=== PATIENT | male | born 1955 ===

== ENCOUNTER 2020-07-29 19:58 | Observation (INO) | payer OTHER, SELFPAY ==
--- NOTE | 2020-07-29 21:29 | DI.MRI.S_ITS ---
PROCEDURE: MR STROKE Pre- and post-contrast brain MRI, non-contrast brain MR angiogram, pre- and postcontrast neck MR angiogram INDICATIONS: CVA TECHNIQUE: Brain: Noncontrast axial T1 spin echo, axial T2 fast spin echo, sagittal and axial FLAIR, coronal T2 fast spin echo, axial gradient echo, axial diffusion and ADC through the brain. After the administration of contrast, axial 3D VIBE of the cranial vasculature and brain. Brain MRA: Non-contrast 3-D time of flight MR angiogram, with multiple rmgsqsh-wdmvlnkop-sqpirremyh (MIP) reformats performed. Neck MRA: Axial and sagittal TruFISP through the neck. Coronal dynamic MR angiogram during administration of contrast in the arterial and venous phases, with 3-dimenstional atxmylo-rwxjukpkk-zrsbvdzzmx (MIP) reformats constructed from subtraction images. COMPARISON: None. FINDINGS: Image quality: Excellent. BRAIN: CSF spaces: Ventricles are normal in size and shape. Basal cisterns are patent. No extra-axial fluid collections. Brain: No intracranial bleeds or mass effects. [place]-white matter interface is normal. Diffusion weighted images show no acute ischemic insults. There is mild diffuse right Brainstem appears normal. Normal intravascular flow voids are present. No abnormal intracranial enhancement. Skull and face: Calvarial marrow signal is normal. Orbits appear normal. Sinuses: Mastoids are clear. Small retention cyst within the left maxillary and ethmoid sinuses. Mild bilateral maxillary sinus mucosal thickening. Mild bilateral ethmoid sinus mucosal thickening. BRAIN MR ANGIOGRAM: Anterior circulation: Multifocal moderate to high-grade stenosis within the left cavernous and pre cavernous internal carotid artery. Mild multifocal stenosis within the right internal carotid artery. The flow within the paired anterior cerebral arteries is normal and symmetric. The flow within the middle cerebral arteries is normal and symmetric. The anterior communicating artery is seen. No stenoses, occlusions, or aneurysms. Posterior circulation: The visualized portions of the vertebral arteries demonstrate normal caliber, and join to form a normal appearing basilar artery. The flow within the posterior cerebral arteries is normal and symmetric. No stenoses, occlusions, or aneurysms. NECK MR ANGIOGRAM: Carotids: Great vessels demonstrate a conventional anatomy as they arise from the aortic arch. The origins of the common carotid arteries appear patent. The calibers and courses of both common carotid arteries are normal. The bifurcation regions appear normal bilaterally. There is a roughly 40% stenosis of the right internal carotid artery, roughly 17 mm distal to its origin. Left internal carotid artery demonstrates a roughly 50% stenosis, roughly 15 mental mm distal to its origin. Mild multifocal stenosis within the right cavernous and pre cavernous internal carotid artery. Multifocal moderate high-grade stenosis within the left precavernous and cavernous internal carotid artery. Posterior circulation: The origins of the vertebral arteries appear patent. More superior portions of both vertebral arteries demonstrate normal course and caliber, and join to form a normal appearing basilar artery. Miscellaneous: Mild right subclavian artery origin stenosis. Moderate to high-grade left subclavian artery stenosis just distal to the left vertebral artery origin. Pre-contrast images through the neck show no soft tissue abnormalities. IMPRESSION: BRAIN MRI: 1. No acute process. No recent infarct. 2. Mild volume loss and small vessel ischemic disease. 3. Sinus disease. BRAIN MR ANGIOGRAM: 1. Left greater than right internal carotid artery stenoses as described above. 2. Otherwise negative cerebral MR angiography. NECK MR ANGIOGRAM: 1. 40% right and 50% left internal carotid artery stenoses. 2. Patent bilateral vertebral arteries. 3. Left greater than right subclavian artery stenoses. Dictated by: Gualberto Tristan M.D. on 07/30/2020 at 9:27 Approved by: Gualberto Tristan M.D. on 07/30/2020 at 9:33
[2020-07-29 21:55] VITALS: BP 152/112; PULSE 67; RESP 16; TEMP 35.8; O2SAT 98
[2020-07-29 22:38] VITALS: BMI 21.4
--- NOTE | 2020-07-29 23:41 | PC.NURSE ---
Patient admitted as transfer from [facility]. Able to ambulate to bed. Provided own health history and admission information. Takes no home meds. Has no complaints of pain. States he was arguing with his when his left side became extremely weak and he was unable to move. He says this lasted about 15mins and then subsided. Currently shows no weakness or other neuro deficits. Patient does possibly have a lisp, or speech impediment or possibly slightly slurred speech. Unknown what speech is like at baseline, patient says he feels like he is talking normally. Patient is a current pack a day smoker and drinks 2 drinks per day, last drink was this afternoon. CIWA 0. His wallet is in his pants pocket in a patient bag in the closet, patient does not wish to put it in the safe. No home meds. Patient is able to make needs know, call light at bedside, bed alarm is on.
[2020-07-30] VITALS (9 sets, daily range): BP systolic 114–183; BP diastolic 66–115; PULSE 56–86; RESP 15–18; TEMP 36.1–37; O2SAT 96–99
--- NOTE | 2020-07-30 03:07 | P.HP_ITS ---
History of Present Illness History of Present Illness Date Patient Seen: 07/29/20 Time Patient Seen: 21:28 Chief complaint: CVA Narrative: Patient is a 64-year-old male Himanshu Carreon who presented to the [facility] Emergency Room weakness to the left arm hand and left leg. Patient presented to the ER with an ethyl alcohol of 153, left arm weakness starting at approximately 4:50 p.m. history was difficult to obtain due to intoxication the patient reported that he had left arm weakness on off for a month, but then noticed it suddenly today when he could not hold anything in his left hand. Patient has a history of remote heart attack, medical noncompliance for hypertension and hyperlipidemia with alcohol and tobacco abuse. Patient reports that he was attempting to open up a can of soup at home when he suddenly dropped a can hogshead opener and was unable to hold it, it then fell to the floor and he was unable to bend down and pick it up with his hand, he then went and sat on the couch waiting for his to come home when he began to feel numbness in his left arm and his foot. When his returned home she transported him to the emergency room by the time he arrived in the emergency room he states that his symptoms were resolved. This evening patient denies any symptoms, or a history prior to today. Patient denies numbness tingling, weakness, headache, changes in vision, balance or coordination, difficulties with speech, sw allowing, chest pain, or shortness of breath. Patient had original NIHSS score of 4, then re-scored NIHSS score of 1 as it was believed that his intoxication was responsible for 3 of the 4 points, patient only had elevations in AST 189/ALT 106, INR 1.1. ER provider was informed by the radiologist verbally that the CT and CT a showed no acute hemorrhage, at which point the ED physician consulted with Dr. Nick (tele stroke neurologist) at which point tPA was not recommended but rather an MRI/observation/ASA. Because [facility]'s MRI is expected to be down for possibly 5 days, patient was accepted onto the hospital service at [facility]. Patient History Medical History (Updated 07/30/20 @ 03:11 by SHUKRI Ortega) Alcohol abuse Bipolar 1 disorder Borderline hyperlipidemia Depression Hypertension, essential Tobacco abuse Surgical History (Updated 07/30/20 @ 03:11 by SHUKRI Ortega) History of mandibular surgery History of tonsillectomy and adenoidectomy Family & Social History Family History (Updated 07/30/20 @ 03:13 by SHUKRI Ortega) Father Caribou's disease Grandfather Caribou's disease Brother Johnie's disease Social History: household members spouse Prior Living Arrangements House Safety & Behavioral: Feels Safe in Current Yes Environment Been Physically Hurt or No Threatened By a Person Suicidal Ideation Description None Suicide Plan Description No Plan Tobacco & Substance use: Smoking Status Current every day smoker x 15 yrs Smoking packs per day 1 alcohol intake current alcohol intake frequency drinks approx. 350cc of Vodka/hard alcohol daily Substance Use Type does not use Meds Home Medications and Allergies Home Medications Medication Instructions Recorded Confirmed Type No Known Home Medications 07/29/20 07/29/20 History Allergies Allergy/AdvReac Type Severity Reaction Status Date / Time ALEX INHIBITORS Allergy Severe ANAPHYLACTI Uncoded 11/18/17 12:01 C Review of Systems Review of Systems ROS: Yes All systems reviewed with the patient and are negative except as otherwise documented Constitutional Constitutional: Reports system reviewed and no additional complaints, except as documented Eyes Eyes: Reports system reviewed and no additional complaints, except as documented Comments: wears glasses ENT Ears, Nose, Mouth, and Throat: Yes system reviewed and no additional complaints, except as documented Cardiovascular Cardiovascular: Reports system reviewed and no additional complaints, except as documented Respiratory Respiratory: Reports system reviewed and no additional complaints, except as documented Gastrointestinal Gastrointestinal: Reports system reviewed and no additional complaints, except as documented Genitourinary Genitourinary: Reports system reviewed and no additional complaints, except as documented Musculoskeletal Musculoskeletal: Reports system reviewed and no additional complaints, except as documented Integumentary/Breasts Skin/Breast: Reports system reviewed and no additional complaints, except as documented Neurologic Neurologic: Reports lack of coordination Psychiatric Psychiatric: Reports system reviewed and no additional complaints, except as documented Endocrine Endocrine: Reports system reviewed and no additional complaints, except as documented Hematologic/Lymphatic Hematologic/Lymphatic: Reports system reviewed and no additional complaints, except as documented Allergic/Immunologic Allergic/Immunologic: Reports system reviewed and no additional complaints, except as documented Exam Vital Signs (past 8 hours): - 07/29/20 21:55 07/30/20 00:00 Temperature 96.5 F L 98.6 F Pulse Rate 67 86 Respiratory Rate 16 15 Blood Pressure 152/112 H 132/92 H Pulse Oximetry 98 96 Oxygen Delivery Method Room Air Oxygen Flow Rate 0 Narrative Exam Narrative: General: Patient is a well-developed, well-nourished, male, in no distress at this time. HEENT: Normocephalic, atraumatic, extraocular muscles intact, oral pharynx is clear and mucous membranes are moist. Patient is missing most of his teeth. Neck is supple and symmetric, trachea is midline, no adenopathy, no thyroid enlargement, nontender, no masses palpated. Negative for JVD Chest: Normal AP diameter and contour without kyphoscoliosis, no nasal flaring, retractions, or tachypneic labored Lungs: Auscultation of all lung gant are clear without adventitious sounds, wheezes, rhonchi, or rales. Cardio: S1 & S2 with regular rate and rhythm without murmur, rubs, or gallops, no carotid bruit, no cardiac pulsations present. Abdomen: Distended, firm, nontender, negative for organomegaly, or masses. Bowel sounds are present in all 4 quadrants without guarding or rebound, no CVA tenderness. Musculoskeletal: Muscle strength 4/5 left programmable logic controller assembler, all extremeties are equal strength , no deformity, Taras crepitus, effusions, cyanosis, clubbing or edema present. Full range of motion intact radial and pedal pulses are normal. Skin: Warm dry and intact without rashes, ulcerations or petechiae. Neuro: Alert and orientated x3, sensation to touch mild asymmetry in left hand sensation versus right, diminished but not absent, no gross deficits noted of cranial nerves. Psych: Patient has a well-kept appearance, appropriate affect, mental status attitude thought context and judgment are appropriate for age. Assessment & Plan Assessment & Plan narrative: This patient requires acute care inpatient hospital management for further evaluation of left-sided weakness for possible cerebrovascular accident. After being unable to obtain appropriate imaging of MRI at [facility] patient was transferred to [facility]. The patient is at much higher risk for medical and surgical complications because of of his medical noncompliance for hypertension and hyperlipidemia as well as his daily abuse alcohol and tobacco. These factors increase the difficulty and complexity of medical and surgical interventions and increases the chances of poor outcomes such as morbidity and mortality . 1. Left-sided weakness, acute, present on admission possible CVA/TIA, portal hypertension, cirrhosis, hepatic hypertension -[facility] CT of brain: does not show intracranial bleed or large territorial infarction, CTA head and neck: Vascular imaging does not show proximal large vessel occlusion. Telemedicine neurologist Dr. Abby Best determined patient not a candidate for tPA treatment or thrombectomy. Recommended patient be transferred to a hospital for observation and MRI imaging. -NIHSS score 1, score on admit 3, EKG: Normal sinus rhythm, normal MD, normal QRS no specific changes for ischemia. -patient stated that he was diagnosed with hypertension and hyperlipidemia over 10 years ago, and has not received medical care taken any medications. -patient to be monitored on tele medicine, vital signs q.4 hours, intake and output monitored Q shift, weight measure daily, neuro checks per protocol, assess for delirium and hallucinations, CIWA scale protocol, NIH Q shift. diet: Heart healthy, bilateral blood pressures taken for comparison -IV fluid, O2 nasal cannula/room air/Pap-O2 saturation -medications and IV fluids provided in the emergency room & imaging -labs ordered: CBC, A1c, Mag, PT INR, TSH, troponin, BNP, hepatic panel, ER stay/CRP, GGT, lipid panel -medications: ASA 81 mg, atorvastatin 80 mg, enoxaparin 40 mg, ibuprofen. Diagnostic ordered: MR, an abdominal ultrasound -consults ordered physical therapy, occupational therapy, speech therapy, dietary. -prevention vaccine: Evaluate to see if patient can receive pneumonia and flu vaccine 2. Alcohol intoxication, acute on chronic, present on admission -ethyl alcohol 153, patient education regarding cessation of alcohol abuse. -CIWA scale protocol, neuro checks according protocol, assessing for delirium hallucinations, and seizure 3. Tobacco abuse, chronic, smoking, present on admission Possible asthma/COPD -patient education provided on smoking cessation Code status: Full code Surrogate/plan of care: Darline Hoyos No POLsT COVID PCR: Negative VTE prophylaxis: Enoxaparin 40mg Scores NIHSS Level of Conciousness: Alert, keenly responsive Ask month/age: Answers both questions correctly. Open/close eyes, close hand: Performs one task correctly Best gaze horizontal: Normal Visual gant: No visual loss Facial palsy: Normal symetrical movement Left arm drift: No drift for full 10 sec Right arm drift: No drift for full 10 sec Left leg drift: No drift for full 5 sec Right leg drift: No drift for full 5 sec Limb ataxia: Present in one limb Sensory on face/arms/legs: Normal, no sensory loss Best language: No aphasia, normal Dysarthria: Mild to mod,some slurring Extinction or inattention: No abnormality Total NIH Stroke scale score: 3
--- NOTE | 2020-07-30 05:15 | PC.NURSE ---
2310 Received safe patient hand-off. The patient is resting in bed with HOB elevated to 30-40 degrees. He is alert and oriented x4, appears to be a bit withdrawn. CIWA scores have been 0. NIH scores have been 1 for slurred speech, but this may be baseline for patient as it appears he may have a speech impediment. Denies pain, GI upset and tremors. No diaphoresis or tremors seen on assessment. No s/sx of distress.
[2020-07-30 05:33] LABS: Add Manual Diff / Slide Review NO; Basophils Absolute Auto 100 /uL (0-100); Basophils Percent Auto 0.9 % (0-2); Eosinophils Absolute Auto 200 /uL (0-450); Eosinophils Percent Auto 2.8 % (2-4); Hematocrit 46.4 % (41-53); Hemoglobin 15.9 g/dL (13.5-17.5); Lymphocytes Absolute Auto 2000 /uL (1100-4500); Lymphocytes Percent Auto 31.7 % (25-40); Mean Corpuscular HGB Conc 34.2 % (30-36); Mean Corpuscular Hemoglobin 30.2 PG (26-34); Mean Corpuscular Volume 88.3 fL (80-100); Monocytes Absolute Auto 900 /uL (0-900); Monocytes Percent Auto 14.3 % (3-14); Neutrophils Absolute Auto 3100 /uL (1500-7000); Neutrophils Percent Auto 50.3 % (50-75); Platelet Count 158 X10^3/uL (150-400); Red Blood Cell Count 5.26 X10^6/uL (4.5-5.9); Red Cell Distribution Width 15.6 % (11.6-14.8); White Blood Cell Count 6.2 X10^3/uL (4.5-11.0)
[2020-07-30 05:50] LABS: Prothrombin Time 11.2 SECONDS (10.1-12.7)
[2020-07-30 06:09] LABS: Cholesterol 219 mg/dL (140-199); Gamma Glutamyl Transpeptidase 98 U/L (15-73); HDL Cholesterol 27 mg/dL (40-60); LDL Cholesterol Calculated 159 mg/dL (<100); Triglycerides 165 mg/dL (35-150)
[2020-07-30 06:10] LABS: Alanine Aminotransferase 122 IU/L (<50); Albumin 3.5 g/dL (3.5-5.0); Albumin Globulin Ratio 0.9 (1.0-2.8); Alkaline Phosphatase 98 U/L (38-126); Aspartate Aminotransferase 211 IU/L (17-59); Bilirubin Total 0.7 mg/dL (0.2-1.3); Bilirubin Unconjugated 0.4 mg/dL (0.0-1.1); Globulin 3.8 g/dL (1.7-4.1); HEMOLYSIS 19 (0-50); Total Protein 7.3 g/dL (6.3-8.2)
[2020-07-30 06:15] LABS: Hemoglobin A1C% w Est Avg Glu 5.5 % (4.0-6.0)
[2020-07-30 06:19] LABS: NT-proBNP (BNP-Adult 18+) 186 pg/mL (<125)
[2020-07-30 06:22] LABS: Troponin I < 0.012 ng/mL (0.01-0.034)
[2020-07-30 06:48] LABS: Alanine Aminotransferase 121 IU/L (<50); Albumin 3.7 g/dL (3.5-5.0); Albumin Globulin Ratio 0.9 (1.0-2.8); Alkaline Phosphatase 105 U/L (38-126); Aspartate Aminotransferase 206 IU/L (17-59); BUN Creatinine Ratio 18.8 (6-22); Bilirubin Total 0.7 mg/dL (0.2-1.3); Blood Urea Nitrogen 15 mg/dL (9-20); Calcium 8.8 mg/dL (8.4-10.2); Carbon Dioxide 30 mmol/L (22-32); Chloride 107 mmol/L (98-107); Estimated Glomerular Filt Rate > 60.0 mL/min (>60); Globulin 3.9 g/dL (1.7-4.1); Glucose 95 mg/dL (80-110); HEMOLYSIS 31 (0-50); Potassium 4.2 mmol/L (3.4-5.1); Sodium 139 mmol/L (137-145); Total Protein 7.6 g/dL (6.3-8.2)
[2020-07-30 06:52] LABS: High Sensitivity CRP - Cardiac 7.4 mg/L (1.0-3.0)
[2020-07-30 07:17] LABS: Erythrocyte Sedimentation Rate 4 MM/HR (0-15)
--- NOTE | 2020-07-30 07:52 | DI.CT.S_ITS ---
PROCEDURE: CT ANGIO CHEST ABDOMEN PELVIS INDICATIONS: Disection Protocol, chest pains TECHNIQUE: Precontrast 5 mm thick sections acquired from the lung apices to the iliac crests. After the administration of intravenous contrast, 2.5 mm thick sections again acquired from the lung apices to the iliac crests. Maximum intensity projection (MIP) oblique sagittal and coronal reformats were then acquired. For radiation dose reduction, the following was used: automated exposure control. COMPARISON: None. FINDINGS: Image quality: Excellent. FINDINGS: Image quality: Excellent. AORTA: The aorta has scattered atherosclerotic calcifications with no aneurysmal dilatation. The origin of the right brachiocephalic artery is patent with no significant atherosclerotic disease. There are atherosclerotic calcifications at the origins of the left common carotid artery and the left subclavian artery causing approximately 30 percent stenosis in both of these origins. The thoracic aorta has a normal caliber throughout its course without evidence of dissection or aneurysm. The abdominal aorta has diffuse atherosclerotic disease. The SMA, celiac trunk, and both renal arteries are patent. There is tortuosity of the left common iliac artery with approximately 60 percent stenosis. Atherosclerotic disease of the right common iliac artery is seen with approximately 40 percent stenosis. The remaining visualized portions of the external and internal iliac arteries are patent with scattered atherosclerotic disease. CHEST: Lungs and pleura: No acute air space opacities. No pleural effusions or pneumothorax. Central and peripheral airways are patent and normal in caliber. Mediastinum: Heart size is normal. There are calcifications of the aortic annulus and the coronary arteries. No pericardial effusion. No mediastinal adenopathy by size criteria. Thoracic aorta and central pulmonary arteries are normal in size. Esophagus is normal in caliber. No hiatal hernia. Bones and chest wall: No suspicious bony lesions. No vertebral body compression fractures. No axillary or supraclavicular adenopathy by size criteria. Thyroid gland is normal . ABDOMEN: Solid organs: Liver: The liver has no mass or intrahepatic biliary ductal dilatation. The portal vein and hepatic veins are patent. there is a 1 centimeter hypodensity in the dome of the right lobe of the liver which is too small to further characterize but is likely a hemangioma. Biliary: The gallbladder has no gallstones, pericholecystic fluid, gallbladder wall thickening, or surrounding inflammatory change. Pancreas: The pancreas has no mass or ductal dilatation. There is no surrounding inflammation. Spleen: Normal size. There are no masses. Adrenals: No hypertrophy or nodules. Kidneys: No obstructive calculus or hydronephrosis. No solid mass. No cystic mass. Bowel: There is a small hiatal hernia. The distal esophagus and stomach are otherwise normal. The small bowel has a normal caliber and appearance. The terminal ileum is normal. The large bowel has a normal caliber and appearance. The appendix is normal. No free fluid or air. Nodes and vessels: No retroperitoneal or mesenteric adenopathy by size criteria. The aorta has atherosclerosis with no aneurysmal dilatation. Abdominal wall: No abdominal wall mass or hernia. PELVIS: Genitourinary: The bladder has no wall thickening or mass. There are multiple hyperdensities in the posterior bladder wall or lying dependently probably bladder calcifications. Miscellaneous: No inguinal hernias or adenopathy. Bones and abdominal wall: No suspicious bony lesions. No vertebral body compression fractures. IMPRESSION: 1. No acute abnormality of the thoracic or abdominal aorta. No aneurysm or dissection. 2. Diffuse atherosclerotic disease of the thoracic and abdominal aorta and its branches as described above. 3. 70 percent stenosis of the left common iliac artery due to tortuosity and atherosclerotic disease. 4. 40 percent stenosis of the right common iliac artery due to atherosclerotic disease. Dictated by: Markus Williamson M.D. on 07/30/2020 at 8:22 Approved by: Markus Williamson M.D. on 07/30/2020 at 8:42
--- NOTE | 2020-07-30 08:03 | PC.NURSE ---
Addendum entered by Isaura Fabian R.N. 07/30/20 08:54: Arrived back to room from imaging around 0855. pt in bed, oriented to room by STONE DECORATOR, and provided with his breakfast tray. Original Note: pt transferred to for MRI and CT scan. Imaging, Bob, took pt down and stated he will be gone from the floor for about an hour. pt jewelry removed and placed in pt belonging bag (necklace, watch, and phone). Tele removed and ICU informed. pt voided before leaving room.
[2020-07-30] MEDS: THIAMINE 100 MG TABLET PO (09:56)
[2020-07-30] MEDS: MULTIVITAMIN 1 TABLET 1 TAB PO (09:56)
[2020-07-30] MEDS: FOLIC ACID 1 MG TABLET PO (09:56)
[2020-07-30] MEDS: ENOXAPARIN 40 MG/0.4 ML SYRINGE SUBCUT (09:57)
[2020-07-30] MEDS: ASPIRIN EC 81 MG TABLET PO (09:57)
--- NOTE | 2020-07-30 10:22 | PC.NURSE ---
pt arrived back from imaging around 0855 and re-oriented to room. pt is AO, receptive to care, and communicating his needs. R Hand IV flushing. pt is SBA in room and denying any pain, dizziness or lightheadedness. pt also denying itchiness, headache and left sided weakness. pt mumbles when he communicates and is delayed in his thoughts. just arrived to room (1025) and will ask if this is pt's baseline or new. pt's BP is 177/115 then 178/115 and hour later and this nurse will notify provider (Dr. Thompson) after drafting this note. pt is asymptomatic and denying pain other than some abdominal bloat.
--- NOTE | 2020-07-30 11:10 | PT.IIE ---
Addendum entered and electronically signed by Geetha Maldonado PT 07/30/20 13:30: BP sitting EOB before activity was 177/98. BP after activity was 149/103. Reported VS to RN. Original Note: Surgical History (Last Updated 07/30/20 @ 03:11 by Isabelle Larson [facility]) History of mandibular surgery History of tonsillectomy and adenoidectomy Medical History (Last Updated 07/30/20 @ 03:11 by Isabelle Larson [facility]) Alcohol abuse Bipolar 1 disorder Borderline hyperlipidemia Depression Hypertension, essential Tobacco abuse Physical Therapy Inpatient Evaluation/Re-Eval M1 PT/OT-IP Prior Functional Status Start: 07/30/20 13:03 Freq: NEEDED Status: Active Protocol: Document 07/30/20 11:03 AW (Rec: 07/30/20 13:29 AW [id number]) Medical Review Prior Functional Status Medical History Reviewed Yes Communication Pt is an effective verbal communicator. At this encounter, affect is mildly flat or depressed. Mobility and Gait Independent without AD and without meaningful limitation. Activities of Daily Living and IADL's Independent with all I/ADL's. Pt is an active pizza driver. Social History Household Members spouse Living Arrangements House Number of Floors (Floors) One Floor Number of Stairs To Enter/Railing? Short threshhold step to enter . No other steps to access the home. Home Environment Standard Height Toilet,Tub/ Shower Home Equipment Straight Cane,Shower Seat with Backrest Employment Status Retired Additional Social History Comment Pt lives with his spouse, Darline, who is also retired. M2 PT-IP Current Condition Start: 07/30/20 08:57 Freq: NEEDED Status: Active Protocol: Document 07/30/20 11:03 AW (Rec: 07/30/20 13:29 AW [id number]) Physical Therapy Current Condition Current Condition Evaluation Date 07/30/20 Treatment Diagnosis left sided weakness/numbness, impaired dynamic balance Onset Date 07/29/20 M3 PT-IP Subjective Start: 07/30/20 08:57 Freq: NEEDED Status: Active Protocol: Document 07/30/20 11:03 AW (Rec: 07/30/20 13:29 AW [id number]) Subjective Physical Therapy Visit Type Type Initial Evaluation Visit Start Time 10:41 Visit Stop Time 11:03 Total Visit Minutes 22 Notes Pt's present throughout evaluation. Number of PODIATRIC MEDICINE PROFESSOR Visits 0 Physical Therapy Visit Comments Patient Comments Pt is willing to participate with PT Therapy Pain Assessment Pain When Pain Assessed During Mobility Pain Present Pain Present Denied Pain M4 PT-IP Mobility and Gait Start: 07/30/20 08:57 Freq: NEEDED Status: Active Protocol: Document 07/30/20 11:03 AW (Rec: 07/30/20 13:29 AW [id number]) PT-Bed Mobility Assessment Supine to Sit Supine to Sit Independent Sit to Supine Sit to Supine Independent Scooting Scooting to Edge of Bed Independent PT-Transfer Assessment Sit to and From Stand Sit to and from Stand Standby Assistance Equipment Transfer Assistive Device None,Gait Belt Orthotic/Prosthetic Devices or Brace: No Transfers Transfer Destination Bed Transfer Technique pt ambulated without AD Transfer Ability Level of Assist Standby Assistance Comments Mobility Comments Pt was lying in the bed visiting with his as PT arrived. He completed all bed mobility independently and then stood from the bed SBA. He stepped away from the bed for balance assessment and then ambulated around the unit a total of 400 feet SBA. He completed Functional Gait Assessment with a score of 25/ 30 with single points deducted for pivot turn, eyes closed, and steps; 2 points deducted for gait with narrow base of support. Pt returned to the room and returned to the bed independent. Pt was positioned with call light in reach. Gait Assessment Gait Gait Assistance Required: Standby Assistance Distance (Feet) 400 Assistive Devices Assistive Device None,Gait Belt Orthotic/Prosthetic Devices or Brace: No Gait Deviations General Gait Pattern Decreased Stride Length, Decreased Feet Clearance Factors Limiting Gait Function Factors Limiting Gait Function Poor Balance,Poor Safety Awareness Comments Gait Comments During FGA, pt could only complete 4 steps in tandem stance, deviated moderately with eyes closed gait, used railing for stairs, and had (+ ) LOB during pivot turn. Pt was able to recover without PT assist. Stair Climbing Assessment Evaluation Level of Assist On Stairs Standby Assistance Devices Stair Climbing Assistive Devices Right Railing Technique/Endurance Stair Climbing Direction Ascend and Descend Stair Climbing Technique Step Over Step Number of Steps Climbed 3 Query Text: Stair Climbing Set # Repetitions (reps) 2 PT-Balance Assessment Sitting Balance and Reactions Static Sitting Balance Ability Normal Dynamic Sitting Balance Ability Normal Standing Balance and Reactions Static Standing Balance Ability Good Dynamic Standing Balance Ability Fair Device Used no AD Functional Assessments Functional Tests Functional Gait Assessment 25/30 M5 PT-IP Objective Assessments Start: 07/30/20 08:57 Freq: NEEDED Status: Active Protocol: Document 07/30/20 11:03 AW (Rec: 07/30/20 13:29 [id number]) Orientation Orientation/Cognition Level of Alertness Alert Orientation Name,Age,Birthday,Month,Date, Year,Day of Week,Place, Situation Safety Awareness Decreased Safety Awareness Memory Description Short Term Impaired Comments Speech was slurred but pt and his state this is normal for him. Pt was able to recall 2/3 random words after 10 minutes distraction. Gross Range of Motion Upper Extremity ROM Assessment Within Functional Limits Lower Extremity ROM Assessment Within Functional Limits Strength Upper Extremity Strength Assessment Left Impaired Hand Left hand 4/5; R 4+/5 Lower Extremity Strength Assessment Within Functional Limits Coordination Assessment Gross Coordination Gross Coordination Impaired Assessment Finger to Nose Test Minimal Impairment Pronation/Supination Test Normal Performance Heel on Baldwin Test Normal Performance Coordination Comments Missed targets bilaterally with finger to nose eyes closed but left was more affected than right. Sensation Assessment Sensation Gross Sensation WNL Muscle Tone Muscle Tone WNL Yes M6 PT-IP Treatment Start: 07/30/20 08:57 Freq: NEEDED Status: Active Protocol: Document 07/30/20 11:03 AW (Rec: 07/30/20 13:29 [id number]) Physical Therapy Treatment Education Education Provided Safety Other Treatments Other Treatment Performed Provided education on dynamic balance testing and interpretation of FGA. M7 PT-IP Assessment and Plan Start: 07/30/20 08:57 Freq: NEEDED Status: Active Protocol: Document 07/30/20 11:03 AW (Rec: 07/30/20 13:29 [id number]) PT Summary Assessment and Plan Potential Rehabilitation Potential Good Status of Condition at Evaluation Stable Summary Impairments Strength,Balance,Coordination, Gait Assessment Summary Phill is a 64 yo man seen for PT evaluation after being admitted with fleeting symptoms of left sided weakness and numbness. CT and MRI were negative for acute process. Pt is independent in all regards at baseline. He presented to ED with EtOH 153 and reports of daily alcohol consumption. On evaluation, pt presents with coordination and dynamic balance deficits affecting gait. Pt scored 25/ 30 on Functional Gait Assessment which is below norms for age-matched peers ( Walker 2007). Pt would benefit from outpatient PT to address coordination and dynamic balance. He will be safe to discharge home when medically cleared. Goals Transfer Goal Independent Gait Goal Independent Gait Distance 400 Days to Meet Goals 2 Frequency of Treatment Frequency Of Treatment Once a Day Treatment Plan Physical Therapy Treatment Plan Bed Mobility Training,Transfer Training,Gait Training, Therapeutic Exercise,Balance Retraining,Discharge Planning, Neuromuscular Re-ed, Coordination Retraining Other Recommendations and Next Treatment dynamic balance Focus Recommendations To Nursing Amount of Assist Needed Standby Assistance Discharge Recommendations PT Discharge Recommendations Home,Outpatient PT Transportation Needs at Discharge Private Vehicle
--- NOTE | 2020-07-30 12:08 | OT.IP.EVAL ---
Past Medical History (Last Updated 07/30/20 @ 03:11 by Isabelle Larson [facility]) Alcohol abuse Bipolar 1 disorder Borderline hyperlipidemia Depression Hypertension, essential Tobacco abuse Surgical History (Last Updated 07/30/20 @ 03:11 by Isabelle Larson [facility]) History of mandibular surgery History of tonsillectomy and adenoidectomy Occupational Therapy Inpatient Evaluation/Re-Eval M1 PT/OT-IP Prior Functional Status Start: 07/30/20 13:03 Freq: NEEDED Status: Active Protocol: Document 07/30/20 13:03 [facility] (Rec: 07/30/20 13:31 [facility] [id number]) Medical Review Prior Functional Status Communication Independent Mobility and Gait Pt independent with no devices . Pt states usually wears slippers at home. Activities of Daily Living and IADL's Completely independent for all ADl, IADL, except that pays the bills. Social History Household Members spouse Living Arrangements Skilled Nurse Facility Number of Floors (Floors) One Floor Number of Stairs To Enter/Railing? One step which is the threshold of the house. Home Environment Standard Height Toilet,Tub/ Shower Home Equipment Straight Cane,Tub Transfer Bench,Hand Held Shower Employment Status Retired Additional Social History Comment Pt states able to put up grab bars if needed. M2 OT-IP Current Condition Start: 07/30/20 13:03 Freq: Status: Active Protocol: Document 07/30/20 13:03 [facility] (Rec: 07/30/20 13:31 [facility] [id number]) Occupational Therapy Current Condition Current Condition Evaluation Date 07/30/20 Treatment Diagnosis TIA, left sided weakness Diagnosis Onset Date 07/29/20 M3 OT- IP Subjective and Pain Start: 07/30/20 13:03 Freq: Status: Active Protocol: Document 07/30/20 13:03 [facility] (Rec: 07/30/20 13:31 [facility] [id number]) OT- Subjective Occupational Therapy Visit Type Type Initial Evaluation Visit Start Time 11:20 Visit Stop Time 12:08 Total Visit Minutes 48 Occupational Therapy Visit Comments Patient Comments Pt agreed to get up for OT eval, pt's initially in the room for OT eval. Patient/Caregiver Goals TO go home. OT Pain Assessment Pain When Pain Assessed During Mobility Pain Present Pain Present Denied Pain M4 OT- IP ADL's Start: 07/30/20 13:03 Freq: Status: Active Protocol: Document 07/30/20 13:03 [facility] (Rec: 07/30/20 13:31 [facility] [id number]) OT [id number] Comments OT Self-Feeding Comments NOt at meal time. OT ADL-Grooming General Evaluation Grooming Ability Independent OT ADL-Oral Care General Eval Oral Care Ability Independent OT ADL-Dressing General Eval Lower Body Dressing Ability Standby Assistance Comments OT Dressing Comments Distant SBA while pt able to shahana slippers while standing and socks while in bed. OT ADL-Toileting Comments OT Toileting Comments Pt not having to use the bathroom. OT ADL-Bathing Comments OT Bathing Comments NOt performed. M5 OT- IP IADL's Start: 07/30/20 13:03 Freq: Status: Active Protocol: Document 07/30/20 13:03 [facility] (Rec: 07/30/20 13:31 [facility] [id number]) OT-Instrumental Activities of Daily Living Home Safety Awareness Awareness of Need for Assistance at Home Good Awareness Ability to Problem Solve Emergency Able to Problem Solve Situations Medication Management Medication Management No Deficits Identified Money Management Money Management No Deficits Identified Meal Preparation Meal Preparation Caregiver Provides Assist Environmental Program Manager Environmental Program Manager Caregiver Provides Assist Driving Driving Comments Pt's agreed to be there with pt when he gets back to driving initially. M6 OT- IP Functional Cognition Start: 07/30/20 13:03 Freq: Status: Active Protocol: Document 07/30/20 13:03 [facility] (Rec: 07/30/20 13:31 [facility] [id number]) Cognitive Factors Limiting Selfcare Function Cognitive Ability Level of Alertness Alert Patient Orientation Name,Age,Birthday,Month,Date, Year,Day of Week,Place, Situation Attention Span Ability Capable of Focused Attention, Capable of Sustained Attention Ability to Follow Commands Able to Follow Multi-Step Commands Memory Description No Deficits Noted Safety Awareness No Deficits Noted Problem Solving Ability No deficits Noted Executive Function Ability No Deficits Noted Cognitive Comments Cognitive Assessment Comments Pt a little slow for word finding needs. Pt and feel that his speech and thinking are at baseline and that he usually takes his time to think things through prior to speaking. Pt scored 75 seconds on Zoar Making Part B which implies 50 % percentile for his age group . Pt's score is normal for task switching, visual attention, mental flexibility, executive function, and problem solving but not perfect. OT- Vision and Hearing OT- Hearing Assessment OT- Hearing Assessment WFL OT- Vision Assessment Visual Acuity WFL Visual Attentiveness WFL Occular Pursuits WFL Visual Convergence WFL Visual Herr WFL M7 OT- IP Mobility and Balance Start: 07/30/20 13:03 Freq: Status: Active Protocol: Document 07/30/20 13:03 [facility] (Rec: 07/30/20 13:31 [facility] [id number]) OT- Bed Mobility Assessment Rolling Type of Rolling Roll to Right Level of Assistance Independent Supine to Sit Supine to Sit Assist Independent Scooting Scooting to Edge of Bed Independent Scooting Up and Down in Bed Independent OT-Transfer Assessment Sit to and From Stand Sit to and from Stand Independent Transfers Transfer Ability Standby Assistance Technique Transfer Destination Bed,Chair Transfer Technique Stand Step Pivot Devices Transfer Assistive Devices None OT- Gait Assessment Comments Gait Ability Comments Distant SBA while in the room with no devices. OT- Balance Assessment Sitting Balance and Reactions Static Sitting Balance Ability Normal Dynamic Sitting Balance Ability Normal Standing Balance and Reactions Static Standing Balance Ability Normal Comments Other Balance Tests/Deviations/Treatment Mainly decreased for dynamic : balance needs. M8 OT- IP Objective Assessments Start: 07/30/20 13:03 Freq: Status: Active Protocol: Document 07/30/20 13:03 [facility] (Rec: 07/30/20 13:31 [facility] [id number]) OT Gross Range of Motion Upper Extremity Range of Motion Assessment Within Functional Limits OT Strength Comments Strength Comments BUE strength 4+/5 to 4/5 from proximal to distal. OT- Coordination Assessment Upper Extremity Finger to Nose Test Within Functional Limits OT-Muscle Tone Assessment Muscle Tone WNL Yes OT Sensation Assessment Comments Summary Comments INtact for all light touch, proprioception, and kinesthesia for both hands. Edema Edema Absent M9 OT- IP Assessment and Plan Start: 07/30/20 13:03 Freq: Status: Active Protocol: Document 07/30/20 13:03 [facility] (Rec: 07/30/20 13:31 [facility] [id number]) OT Summary Assessment and Plan Potential Rehabilitation Potential Excellent Analytic Complexity at Evaluation Low Summary OT Impairments Balance,Coordination, Functional Mobility,Bathing Progress Towards Goals Progressing Toward Goals Assessment Summary Pt low complexity and here due to left sided weakness and came into the ER for possible CVA versus TIA. Pt mainly having decreased speed of coordination for BUE 34.5 seconds on 9 hole peg test which in below 10th percentile for his age and right hand scored at 29 seconds which is at 10th percentile for his age . Pt states has had difficulty with his hands for awhile and felt that it was the lack of relay operator as to way he had a slow time. Pt scored 75 seconds on Zoar making Part B which implies 50% percentile for his age group. Pt's score is normal for task switching, visual attention, mental flexibility, executive function , and problem solving but not perfect. Pt to go home with his when medically stable . Goals Shower Transfer Goal Independent OT-Other Goals Pt to be independent for do hand exercises. Days to Meet Goals 1 Frequency of Treatment Frequency Of Treatment Once a Day Treatment Plan OT Treatment Plan Functional Mobility, Therapeutic Exercises Discharge Recommendations OT Discharge Recommendations Home with Assistance Transportation Needs at Discharge Private Vehicle
[2020-07-30] MEDS: METOPROLOL IR 50 MG TABLET PO (12:54)
--- NOTE | 2020-07-30 13:44 | ST.OPIE ---
Visit Care Team Role Provider Type SHUKRI Ortega Admit Provider Physician Attending Provider Referring Provider Specialty: Medical Address: [address] [place] [address], [id number] Email: Speech-Language Pathology Initial Evaluation SENIOR BACK END JAVA DEVELOPER Adult Cognitive Linguistic Eval Start: 07/30/20 11:27 Freq: Status: Active Protocol: Document 07/30/20 11:36 CLARA (Rec: 07/30/20 11:49 [facility]ARA [id number]) Adult Cognitive Linguistic Evaluation Session Time Visit Start Time 08:50 Visit Stop Time 09:30 Total Visit Minutes 40 Referral Referring Provider SHUKRI Ortega Reason for Referral Stroke protocol Setting Assessment Location Acute Care Visit Type Note Type Initial evaluation Next Note Type Next Note Type Treatment Note Patient Information Identification Type Name,ID Card Medical History Per H&P: Patient is a 64-year -old male who presented to the [facility] Emergency Room due to weakness to the left arm hand and left leg. Patient presented to the ER with an ethyl alcohol of 153, left arm weakness starting at approximately 4:50 p.m....The patient reported that he had left arm weakness on off for a month, but then noticed it suddenly when he could not hold anything in his left hand . Patient has a history of remote heart attack, medical noncompliance for hypertension and hyperlipidemia with alcohol and tobacco abuse. The patient was admitted to acute care inpatient hospital management for further evaluation of left-sided weakness for possible cerebrovascular accident. After being unable to obtain appropriate imaging of MRI at [facility], patient was transferred to [facility] . 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 Breakfast tray was in room, not yet touched. The pt denied swallow difficulty, reported occasional new WFD that interfered somewhat in his ability to express himself fully, and reported PLOF difficulty with auditory processing/comprehension of technology (i.e., TV, computer). He felt this was in part d/t hearing loss but also difficulty translating what was said into sensible communication. Assessment Oral Motor Examination Completed Minimal observation Results Pt has natural dentition in poor condition, some teeth missing and others with caps. He reported capped teeth as being somewhat sensitive when chewing. Formal Assessment Standardized Test/Screener Type Raghu Cognitive Assessment (MoCA) Administration Complete Results Pt scored 27/30 on MoCA with errors in sentences repetition (single word error in each of 2 sentences) and delayed recall of one in five items. Expressive and receptive language was with normal content, mildly slowed processing in basic conversation. Informal speech & language assessment: Expressive/Speech: Automatic speech, phrase completion, and confrontational naming all WNL. No dysarthria symptoms observed. Pt's voice was quiet , occasionally requiring requests for repetition. Imitation WNL. Receptive: Simple Yes/No questions, left/right discrimination, 1-step directions, and reading all WNL. Phrase completion and responsive naming were accurate with mildly delayed responses. Pt answered 4/5 complex yes/no questions accurately, and made one error in following 2-step directions (reversed order of tasks). Swallow screening was performed. The pt consumed consecutive sips of thin liquid via straw with no overt s/sx of aspiration. Consumed 2 bites of fresh diced melon with slowed and moderately effortful mastication. No c/o swallow difficulty, but one cough did occur when the pt spoke while masticating food. Findings/Results Language Function Mildly impaired Cognitive Function Within functional limits Findings The pt presents with mild WFDs and mildly delayed information processing skills which could be impacted by hearing loss. He is generally able to express basic wants/ needs and to participate in functional conversations. However, he may struggle more both to express himself and to comprehend others in conversations around complex topics, such as his medical prognosis and POC. Recommend conversation partners refrain from rapid speech, use clear and concise language, and ensure the pt has correctly heard information and questions. Providing information in writing will likely be helpful as well. The pt also presents with mild oral dysphagia secondary to poor dentition. Mechanical soft diet texture is recommended for pt ease and comfort and to reduce effort required for oral prep phase and adequate mastication for pharyngeal phase swallow and airway protection. Will monitor swallow safety and more fully evaluate if warranted. Cognitive Communication Deficits Self-awareness of Cognitive- Predictive awareness (able to Communication Deficits predict problem; impact of impairments) Concomitant Factors Concomitant Factors Hearing loss Impact on Functioning Activity Limits/Particip.Rest. Mild: General Tasks and Demands Interpersonal Interactions Community Prognosis Prognosis Good Based on Cognitive status,Family support,Duration of symptoms/ severity,Time since onset Plan of Care Speech-Language Treatment Yes Frequency Daily over hospital stay; Patient/Caregiver Education Described results of evaluation,Patient expressed understanding of evaluation, Patient expressed agreement with goals and treatment plans Short Term Goals 1. The pt will demonstrate understanding of word recall strategies by performing them in structured tasks with 80% acc. 2. The pt will follow 2- and 3 -step directions of moderate complexity with 80% acc to improve auditory comprehension skills. 3. The pt will be provided education, orally and in writing, RE communication strategies in the presence of hearing loss to improve his ability to effectively communicate with others. Image Processing Engineer Goals 1. The pt will demonstrate expressive and receptive communication skills sufficient to effectively participate in conversations and decisions related to his medical care. Discharge Recommendations Home,Outpatient therapy
--- NOTE | 2020-07-30 14:15 | DIET.PN ---
Dietary Progress Note Assessment: Mr. Carreon is a 64-year-old male who presented to the Emergency Room with weakness to the left arm, hand and left leg. He has an ethyl alcohol of 153. He reported that he had left arm weakness on off for a month. He has a history of remote heart attack, medical noncompliance for hypertension and hyperlipidemia with alcohol and tobacco abuse, Bipolar 1 disorder, and Depression. He reports hx of dizziness associated with feelings of anxiety. He is unsure of recent weight loss but endorses usual body weight between 125-137lb. He does not have much of an appetite and admits to going days without eating. HT: 177.8cm WT: 68kg UBW: 125-137lb BMI: 21.5 Labs: AST: 206 ALT: 121 Tri Chol: 219 LDL: 159 HDL: 27 ETOH: 153 MNA: 8 Eliazar: 21 Nutrition Diagnosis: Inadequate energy intake r/t decreased appetite, psychological causes such as depression aeb estimated energy intake from diet less than needs, lack of interest in foods, excessive consumption of alcohol. Interventions: Educated on heart healthy, low sodium diet. Provided information and websites for heart healthy recipes. Will order ONS enlive if PO's <70%. Diet Order: heart healthy; dysphagia EER: 2000 florence (30cal/kg); 70-90g pro (1-1.3g/kg) Monitoring/Evaluations: weight, PO's, need for ONS
[2020-07-30] MEDS: CLOPIDOGREL 75 MG TABLET PO (14:25)
--- NOTE | 2020-07-30 14:55 | CM.DANOTE ---
Patient is a 64 year old male who was admitted on 07/29/20 for CVA symptoms. Pt has [facility] for insurance and his PCP is not listed. EMR was reviewed. Per MD, pt with some ETOH intoxication at admission which made assessment for CVA difficult. Pt with hx of bipolar/depression dx and currently on CIWA with very low scores. MRI, no significant changes. Per PT/OT/ST, recommending safe d/c home with sig other assist and outpt PT. SW met bedside with pt and sig aurora Gregorio and explained role and pt with flat affect and confirms he lives at home in [place] with Darline and is independent with ADL's and drives and does not use equipment to ambulate. Pt not very interested in talking about his alcohol use and is not interested in CD resources and very brief with his answers and poor eye contact. Sig Aurora Gregorio states they are both typically home but pt fell while she had run to the store for supplies. Pt is hopeful to d/c back home today if stable and Darline would be able to provide transport but wanted to make sure no further medical care needed as pt left ED AMA last year. Plan: SW to follow for likely plan of d/c home with Sig Other and outpt PT recommendation and any further identified needs. JOSE Brown Discharge Planning/Care Management CM Discharge Assessment Start: 07/30/20 14:53 Freq: Status: Active Protocol: Document 07/30/20 14:53 BF (Rec: 07/30/20 14:55 BF [id number]) Discharge Planning Assessment Assigned Container Washer Machine JOSE Buckner DPOA/Assigned Designee Name informally Sig Aurora Gregorio Advance Directives? No: F/U with patient Advance Directives on File No History Provided By Patient,Significant Other, Medical Record Has Patient been admitted in last 30 No days? Prior Living Arrangements House Household Members spouse Type of transporation used prior to Drives own vehicle admit Independent with ADL's Yes Is patient alert and oriented? Yes Caregiver for Another No Patient/Family Preference OP PT Therapy Barriers to Discharge No Discharge Plan Home Community Services Physical Therapy Transportation Arrangement Sig Other bedside and available to transport at d/c Referrals Initiated None needed Review Status In Process Please Provide Date Initial DC 07/30/20 Assessment Was Performed Next Review Type Continued Stay Review
--- NOTE | 2020-07-30 17:12 | PC.NURSE ---
Evening Shift/Discharge Note- Patient discharged home. Discharge instructions and education reviewed with patient and signed. Tele monitor removed. IV line removed and bamdage applied. Patient dressed self and packed up all personal items. Patient left via wheelchair to private car with spouse at 1710.
--- NOTE | 2020-07-30 19:38 | P.DS_ITS ---
History of Present Illness History of Present Illness Date Patient Seen: 07/30/20 Chief complaint: CVA Narrative: Patient is a 64-year-old male Himanshu Carreon who presented to the [facility] Emergency Room weakness to the left arm hand and left leg. Patient presented to the ER with an ethyl alcohol of 153, left arm weakness starting at approximately 4:50 p.m. history was difficult to obtain due to intoxication the patient reported that he had left arm weakness on off for a month, but then noticed it suddenly today when he could not hold anything in his left hand. Patient has a history of remote heart attack, medical noncompliance for hypertension and hyperlipidemia with alcohol and tobacco abuse. 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 When his returned home she transported him to the emergency room by the time he arrived in the emergency room he states that his symptoms were resolved. This evening patient denies any symptoms, or a history prior to today. Patient denies numbness tingling, weakness, headache, changes in vision, balance or coordination, difficulties with speech, swallowing, chest pain, or shortness of breath. Patient had original NIHSS score of 4, then re-scored NIHSS score of 1 as it was believed that his int oxication was responsible for 3 of the 4 points, patient only had elevations in AST 189/ALT 106, INR 1.1. ER provider was informed by the radiologist verbally that the CT and CT a showed no acute hemorrhage, at which point the ED physician consulted with Dr. Nick (tele stroke neurologist) at which point tPA was not recommended but rather an MRI/observation/ASA. Because [facility]'s MRI is expected to be down for possibly 5 days, patient was accepted onto the hospital service at [facility]. Discharge Providers Provider Date of admission: 07/29/20 19:58 Discharge Date: 07/30/20 Consults: 07/29/20 21:29 Consult to Discharge Planning Routine Comment: Consult to Discharge Planning Routine Comment: Consult to Occupational Therapy Evaluate & Treat Comment: Physician Instructions: Evaluate and treat Consult to Occupational Therapy Evaluate & Treat Comment: Physician Instructions: Evaluate and treat Consult to Physical Therapy Evaluate & Treat Comment: Physician Instructions: Evaluate and Treat Consult to Physical Therapy Evaluate & Treat Comment: Physician Instructions: Evaluate and Treat Consult to Speech Therapy Evaluate & Treat Comment: Physician Instructions: Evaluate and treat 07/29/20 22:45 Consult to Dietitian, Adult Routine Comment: Reason For Exam: decrease in appetite Discharge provider: Melody Thompson MD Summary Hospital Course Discharge Diagnosis: 1. TIA 2. Hypertesion 3. Hyperlipidemia 4. Tobacco dependence 5. Alcohol abuse Hospital Course: Patient was admitted to the hospital for an MRI given recent findings of left hand weakness left hand numbness and left leg weakness. MRI was obtained and showed no evidence of acute CVA. The patient was scheduled for a cardiac echo. This could not be obtained today and the patient insisted upon going home. Given his hypertension he was started on metoprolol. The patient is allergic to Angel inhibitors. We started him on a baby aspirin, and Plavix, dual anti-platelet therapy. Patient was not started on a statin as his LFTs were elevated most likely related to acute alcoholic hepatitis. Patient was instructed to follow-[facility]. Once his LFTs improved statin can be resumed. The patient's clinical symptoms had resolved. He had some difficulty with speech which was chronic. His NIH score was 0. Patient was deemed appropriate for discharge and discharged home. Exam Vital Signs (past 8 hours): - 07/30/20 14:24 07/30/20 14:28 07/30/20 15:45 Temperature 97.0 F L 97.2 F L Pulse Rate 56 L 57 L Respiratory Rate 16 18 Blood Pressure 114/66 148/86 H Pulse Oximetry 99 99 97 Oxygen Delivery Method Room Air Oxygen Flow Rate 0 Narrative Exam Narrative: Pleasant gentleman resting comfortably in no obvious distress Lungs: Clear to auscultation Cardiac exam: Regular rate and rhythm normal S1-S2 Abdomen: Soft and nontender Extremities: No edema Objective Labs Result Diagrams: 07/30/20 05:20 07/30/20 06:25 Labs: Laboratory Results - last 24 hr 07/30/20 07/30/20 07/30/20 05:20 05:20 05:20 WBC 6.2 RBC 5.26 Hgb 15.9 Hct 46.4 MCV 88.3 MCH 30.2 MCHC 34.2 RDW 15.6 H Plt Count 158 Neut % (Auto) 50.3 Lymph % (Auto) 31.7 Gladwin % (Auto) 14.3 H Eos % (Auto) 2.8 Baso % (Auto) 0.9 Neut # (Auto) 3100 Lymph # (Auto) 2000 Gladwin # (Auto) 900 Eos # (Auto) 200 Baso # (Auto) 100 ESR PT 11.2 INR 1.0 Sodium Potassium Chloride Carbon Dioxide BUN Creatinine Estimated GFR BUN/Creatinine Ratio Glucose Hemoglobin A1c 5.5 Calcium Magnesium Total Bilirubin Conjugated Bilirubin Unconjugated Bilirubin GGT AST ALT Alkaline Phosphatase Troponin I C-React Prot High Sens NT-Pro-B Natriuret Pep Total Protein Albumin Globulin Albumin/Globulin Ratio Triglycerides Cholesterol LDL Cholesterol, Calc HDL Cholesterol TSH 07/30/20 07/30/20 07/30/20 05:20 05:20 05:20 WBC RBC Hgb Hct MCV MCH MCHC RDW Plt Count Neut % (Auto) Lymph % (Auto) Gladwin % (Auto) Eos % (Auto) Baso % (Auto) Neut # (Auto) Lymph # (Auto) Gladwin # (Auto) Eos # (Auto) Baso # (Auto) ESR PT INR Sodium Potassium Chloride Carbon Dioxide BUN Creatinine Estimated GFR BUN/Creatinine Ratio Glucose Hemoglobin A1c Calcium Magnesium 2.0 Total Bilirubin 0.7 Conjugated Bilirubin 0.0 Unconjugated Bilirubin 0.4 GGT 98 H AST 211 H ALT 122 H Alkaline Phosphatase 98 Troponin I C-React Prot High Sens NT-Pro-B Natriuret Pep 186 H Total Protein 7.3 Albumin 3.5 Globulin 3.8 Albumin/Globulin Ratio 0.9 L Triglycerides Cholesterol LDL Cholesterol, Calc HDL Cholesterol TSH 07/30/20 07/30/20 07/30/20 05:20 06:25 06:25 WBC RBC Hgb Hct MCV MCH MCHC RDW Plt Count Neut % (Auto) Lymph % (Auto) Gladwin % (Auto) Eos % (Auto) Baso % (Auto) Neut # (Auto) Lymph # (Auto) Gladwin # (Auto) Eos # (Auto) Baso # (Auto) ESR 4 PT INR Sodium Potassium Chloride Carbon Dioxide BUN Creatinine Estimated GFR BUN/Creatinine Ratio Glucose Hemoglobin A1c Calcium Magnesium Total Bilirubin Conjugated Bilirubin Unconjugated Bilirubin GGT AST ALT Alkaline Phosphatase Troponin I < 0.012 C-React Prot High Sens 7.4 H NT-Pro-B Natriuret Pep Total Protein Albumin Globulin Albumin/Globulin Ratio Triglycerides 165 H Cholesterol 219 H LDL Cholesterol, Calc 159 H HDL Cholesterol 27 L TSH 07/30/20 07/30/20 06:25 06:25 WBC RBC Hgb Hct MCV MCH MCHC RDW Plt Count Neut % (Auto) Lymph % (Auto) Gladwin % (Auto) Eos % (Auto) Baso % (Auto) Neut # (Auto) Lymph # (Auto) Gladwin # (Auto) Eos # (Auto) Baso # (Auto) ESR PT INR Sodium 139 Potassium 4.2 Chloride 107 Carbon Dioxide 30 BUN 15 Creatinine 0.80 Estimated GFR > 60.0 BUN/Creatinine Ratio 18.8 Glucose 95 Hemoglobin A1c Calcium 8.8 Magnesium Total Bilirubin 0.7 Conjugated Bilirubin Unconjugated Bilirubin GGT AST 206 H ALT 121 H Alkaline Phosphatase 105 Troponin I C-React Prot High Sens NT-Pro-B Natriuret Pep Total Protein 7.6 Albumin 3.7 Globulin 3.9 Albumin/Globulin Ratio 0.9 L Triglycerides Cholesterol LDL Cholesterol, Calc HDL Cholesterol TSH 2.50 [facility] Medical History (Updated 07/30/20 @ 03:11 by FLAVIO OrtegaSHAINA) Alcohol abuse Bipolar 1 disorder Borderline hyperlipidemia Depression Hypertension, essential Tobacco abuse Surgical History (Updated 07/30/20 @ 03:11 by FLAVIO OrtegaSHAINA) History of mandibular surgery History of tonsillectomy and adenoidectomy Family History (Updated 07/30/20 @ 03:13 by FLAVIO OrtegaSHAINA) Father Kenova's disease Grandfather Johnie's disease Brother Johnie's disease Social History household members: spouse Smoking Status: Current every day smoker alcohol intake: current Discharge Assessment & Plan Assessment and Plan Assessment: 1. TIA 2. Hypertension 3. Hyperlipidemia 4. Tobacco dependence 5. Alcohol dependence Plan of Treatment: Patient was discharged home on aspirin and Plavix Statin therapy was not initiated as the patient had elevated liver function tests He will follow-up with his primary care provider for cardiac echo and repeat LFTs Patient was counseled on smoking cessation Discharge Plan Discharge Plan Patient Disposition: Home Discharge orders & Medications Prescriptions: New clopidogrel 75 mg Tablet 75 mg PO DAILY Qty: 30 RF: 0 aspirin 81 mg tablet,delayed release (DR/EC) 81 mg PO DAILY Qty: 30 RF: 0 metoprolol succinate 50 mg tablet extended release 24 hr 50 mg PO DAILY Qty: 30 RF: 0 Discharge Health Status Health Concerns: Patient needs outpatient Echo NATASHA, Patient admitted for TIA and requested to leave. He needs repeat LFTs. unable to start statin due to elevated LFT's. Multidrug resistant organism: No MDRO Diet/Activity/Treatments Diet: Low-fat, Low-sodium and Low-cholesterol Visit Report/Discharge Packet Instructions: Treatments for High Blood Pressure: More Than Just Taking a Pill, Metoprolol Discharge Data Attending Provider: Isabelle Larson
== END 2020-07-30 17:12 | disposition home or self-care (01) ==
PROVIDERS: Admitting Provider Nurse Practitioner Family; Referring Provider Nurse Practitioner Family; Visit Provider Nurse Practitioner Family
DX: G45.9 Transient cerebral ischemic attack, unspecified (principal); R53.1 Weakness; R20.0 Anesthesia of skin; F17.210 Nicotine dependence, cigarettes, uncomplicated; Z91.128 Patient's intentional underdosing of medication regimen for other reason; I10 Essential (primary) hypertension; E78.5 Hyperlipidemia, unspecified; F10.229 Alcohol dependence with intoxication, unspecified; Y90.6 Blood alcohol level of 120-199 mg/100 ml
CPT/HCPCS: 36415; 70548; 70553; 71275; 74174; 80053; 80061; 80076; 82977; 83036; 83735; 83880; 84443; 84484; 85025; 85610; 85651; 86140; 92523; 92610; 97161; 97165; 97530; G0378; G0379; J1650; Q9967

== ENCOUNTER 2022-12-05 17:45 | Inpatient (IN) | payer OTHER, SELFPAY ==
[2022-12-05] VITALS (7 sets, daily range): BP systolic 124–185; BP diastolic 68–88; PULSE 73–88; RESP 16–20; TEMP 36.4; O2SAT 98–99; BMI 19.3
--- NOTE | 2022-12-05 | DI.CT.S_ITS ---
PROCEDURE: CT HEAD/BRAIN WO CON INDICATIONS: ALTERED MENTAL STATUS TECHNIQUE: Noncontrast 4.5 mm thick angled axial sections acquired from the foramen magnum to the vertex, with coronal and sagittal reformats. For radiation dose reduction, the following was used: automated exposure control, adjustment of mA and/or kV according to patient size. COMPARISON: [facility], , MR STROKE, 07/30/2020, 8:12. FINDINGS: Image quality: Excellent. CSF spaces: Basal cisterns are patent. No extra-axial fluid collections. The ventricles are symmetric in size and shape. Brain: No intracranial bleeds or masses. New moderate subacute versus chronic left frontal lobe infarct. New moderate subacute versus chronic right parietal lobe infarct. There is cerebral volume loss for age, with resultant ventricular and sulcal prominence. There are periventricular and deep white matter chronic small vessel ischemic changes. There is intracranial internal carotid artery atherosclerosis. Skull and face: Calvarium and visualized facial bones appear intact, without suspicious lesions. Sinuses: Visualized sinuses and mastoids are clear. IMPRESSION: Moderate subacute versus chronic bilateral cerebral infarcts. Dictated by: Gualberto Tristan M.D. on 12/05/2022 at 19:49 Approved by: Gualberto Tristan M.D. on 12/05/2022 at 19:49
--- NOTE | 2022-12-05 18:31 | DI.RAD.S_ITS ---
PROCEDURE: XR CHEST 1V INDICATIONS: altered mental status TECHNIQUE: One view of the chest was acquired. COMPARISON: [facility], , CHEST 1 VIEW, 06/06/2012, 13:11. FINDINGS: Surgical changes and devices: None. Lungs and pleura: Lungs are clear. No pleural effusions or pneumothorax. Mediastinum: Mediastinal contours appear normal. Heart size is normal. Bones and chest wall: No suspicious bony lesions. Overlying soft tissues appear unremarkable. IMPRESSION: No acute process. Dictated by: Gualberto Tristan M.D. on 12/05/2022 at 19:26 Approved by: Gualberto Tristan M.D. on 12/05/2022 at 19:26
[2022-12-05 19:06] LABS: Add Manual Diff / Slide Review NO; Basophils Absolute Auto 100 /uL (0-100); Basophils Percent Auto 0.8 % (0-2); Eosinophils Absolute Auto 100 /uL (0-450); Eosinophils Percent Auto 0.9 % (2-4); Hematocrit 45.4 % (41-53); Hemoglobin 15.3 g/dL (13.5-17.5); Lymphocytes Absolute Auto 2100 /uL (1100-4500); Lymphocytes Percent Auto 18.1 % (25-40); Mean Corpuscular HGB Conc 33.6 % (30-36); Mean Corpuscular Hemoglobin 28.1 PG (26-34); Mean Corpuscular Volume 83.5 fL (80-100); Monocytes Absolute Auto 1300 /uL (0-900); Monocytes Percent Auto 11.6 % (3-14); Neutrophils Absolute Auto 7800 /uL (1500-7000); Neutrophils Percent Auto 68.6 % (50-75); Platelet Count 241 X10^3/uL (150-400); Red Blood Cell Count 5.44 X10^6/uL (4.5-5.9); Red Cell Distribution Width 13.5 % (11.6-14.8); White Blood Cell Count 11.4 X10^3/uL (4.5-11.0)
[2022-12-05 19:12] LABS: Alanine Aminotransferase 124 IU/L (<50); Albumin 4.1 g/dL (3.5-5.0); Alkaline Phosphatase 104 U/L (38-126); Aspartate Aminotransferase 98 IU/L (17-59); BUN Creatinine Ratio 23.8 (6-22); Bilirubin Total 0.6 mg/dL (0.2-1.3); Blood Urea Nitrogen 36 mg/dL (9-20); Calcium 9.3 mg/dL (8.4-10.2); Carbon Dioxide 26 mmol/L (22-32); Chloride 103 mmol/L (98-107); Estimated Glomerular Filt Rate 50 mL/min (>60); Globulin 4.3 g/dL (1.7-4.1); Glucose 112 mg/dL (80-110); HEMOLYSIS 17 (0-50); Potassium 4.5 mmol/L (3.4-5.1); Sodium 137 mmol/L (137-145); Total Protein 8.4 g/dL (6.3-8.2)
[2022-12-05 19:46] LABS: Ammonia (NH3) 20 umol/L (9-30)
[2022-12-06] VITALS (16 sets, daily range): BP systolic 119–188; BP diastolic 67–88; PULSE 66–107; RESP 16–18; TEMP 36.2–37.1; O2SAT 92–99; BMI 19.3
--- NOTE | 2022-12-06 00:27 | ED.WEAKNESS ---
HPI - Weakness General Chief complaint: Weakness Stated complaint: UTI, Eye seeping, R leg numb Time Seen by Provider: 12/05/22 23:48 Source: patient and family Mode of arrival: Wheelchair History of Present Illness HPI Narrative: Patient is 67-year-old male history of polysubstance abuse mostly methamphetamine per history of a TIA, hypertension hyperlipidemia presenting with variety of symptoms . reports that they are moving tomorrow or the next day to [place]. She reports that he does use methamphetamine however he has been clean and sober from alcohol. She reports significant decline over the last 2-6 months. She reports that he has difficulty with his right leg sometimes he can ambulate. He reports it has been ongoing for 2 years although she is really noticed it. She thinks that maybe he has a UTI. She just reports general decline. He currently is extremely sleepy is able to follow some commands. Right hand is very red and swollen she reports that they were at would be general some point and there was maybe a blood clot but not a DVT sounds like a superficial phlebitis Related Data Previous Rx's Medication Instructions Recorded aspirin 81 mg tablet,delayed 81 mg PO DAILY #30 tabs 07/30/20 release clopidogrel 75 mg tablet 75 mg PO DAILY #30 tabs 07/30/20 metoprolol succinate 50 mg 50 mg PO DAILY #30 tabs 07/30/20 tablet,extended release 24 hr Allergies Allergy/AdvReac Type Severity Reaction Status Date / Time ALEX INHIBITORS Allergy Severe ANAPHYLACTI Uncoded 11/18/17 12:01 C Review of Systems Review of Systems ROS Unobtainable: All systems reviewed & are unremarkable except as noted in HPI and below Patient History Medical History Alcohol abuse Bipolar 1 disorder Borderline hyperlipidemia Depression Hypertension, essential Tobacco abuse Surgical History History of mandibular surgery History of tonsillectomy and adenoidectomy Family History Father Johnie's disease Grandfather Goodrich's disease Brother Goodrich's disease Social History household members: spouse Smoking Status: Current every day smoker alcohol intake: current Smoking Status: Current every day smoker alcohol intake frequency: 0-2 drinks per day Substance Use Type: does not use Exam Initial Vital Signs Initial Vital Signs: Vital Signs Temperature 97.6 F 12/05/22 18:19 Pulse Rate 88 12/05/22 18:19 Respiratory Rate 20 12/05/22 18:19 Blood Pressure 124/68 12/05/22 18:19 Pulse Oximetry 98 12/05/22 18:19 Oxygen Delivery Method Room Air 12/05/22 18:19 GENERAL: Chronically ill appears older than stated age male sleeping minimally arousable HEENT: Head atraumatic,EOMI, pupils reactive, face symmetric, moist mucous membranes CARDIOVASCULAR: Regular rate and rhythm without murmurs, rubs or gallops. RESPIRATORY: Breath sounds equal bilaterally, no wheezes rales or rhonchi. ABDOMEN: Soft, nontender. Normoactive bowel sounds all 4 quadrants. No guarding or rebound. EXTREMITIES: Normal range of motion, no clubbing or edema. Neurovascularly intact NEUROLOGICAL: Atg Architect strength equal bilaterally SKIN: Warm, dry, no laceration, no petechiae, no rashes or lesions. Course Orders Ordered: ED Orders 12/06/22 00:35 UA Complete [Urinalysis and Microscopic] Stat Urine Culture Stat Urine Drug Screen, Rapid Stat 12/06/22 00:38 CT angio head and neck Stat ETOH [Ethanol (ETOH)] Stat Acetaminophen (Acetaminophen 325 Mg Tablet) 650 mg PO Q6H PRN PRN Reason: Fever/Mild Pain (1-3) Aspirin (Aspirin Ec 81 Mg Tablet) 81 mg PO DAILY ZAINAB Atorvastatin Calcium (Atorvastatin 20 Mg Tablet) 40 mg PO BEDTIME ZAINAB Clopidogrel Bisulfate (Clopidogrel 75 Mg Tablet) 75 mg PO DAILY ZAINAB Enoxaparin Sodium (Enoxaparin 40 Mg/0.4 Ml Syringe) 40 mg SUBCUT DAILY ZAINAB Ceftriaxone Sodium 1,000 mg/ (Sodium Chloride) 100 mls @ 200 mls/hr IV Q24H ZAINAB Sodium Chloride (Normal Saline 0.9%) 1,000 mls @ 100 mls/hr IV CONT ZAINAB Metoprolol Succinate (Metoprolol Er 50 Mg Tablet) 50 mg PO DAILY ZAINAB Naloxone HCl (Naloxone 0.4 Mg/Ml Vial) 0.2 mg IV Q2MIN PRN PRN Reason: Opiate Reversal Ondansetron HCl (Ondansetron 4 Mg/2 Ml Inj) 4 mg IV Q8HR PRN PRN Reason: Nausea And Vomiting Discontinued Medications Ceftriaxone Sodium 1,000 mg/ (Sodium Chloride) 100 mls @ 200 mls/hr IV NOW ONE Stop: 12/06/22 02:02 Last Infusion: 12/06/22 02:40 Dose: 0 mls/hr Documented By: Admin: 12/06/22 02:17 Dose: 200 mls/hr Documented By: BARBRA Vital Signs Vital signs: Vital Signs - 8 hr 12/05/22 23:00 12/05/22 23:30 12/06/22 00:03 Pulse Rate 74 77 80 Respiratory Rate Blood Pressure Pulse Oximetry 98 98 99 Oxygen Delivery Method 12/06/22 00:10 12/06/22 00:10 12/06/22 00:30 Pulse Rate 80 79 Respiratory Rate Blood Pressure 176/84 H Pulse Oximetry 98 97 Oxygen Delivery Method Room Air 12/06/22 01:00 12/06/22 01:30 12/06/22 01:49 Pulse Rate 83 81 Respiratory Rate Blood Pressure 188/80 H Pulse Oximetry 97 95 Oxygen Delivery Method 12/06/22 01:49 12/06/22 02:00 Pulse Rate 85 107 H Respiratory Rate 18 Blood Pressure Pulse Oximetry 96 92 Oxygen Delivery Method MDM - Weakness Lab Data 12/05/22 18:45 12/05/22 18:45 Labs: Lab Results 12/05/22 12/05/22 12/05/22 Range/Units 18:45 18:45 18:45 WBC 11.4 H (4.5-11.0) X10^3/uL RBC 5.44 (4.5-5.9) X10^6/uL Hgb 15.3 (13.5-17.5) g/dL Hct 45.4 (41-53) % MCV 83.5 (80-100) fL MCH 28.1 (26-34) PG MCHC 33.6 (30-36) % RDW 13.5 (11.6-14.8) % Plt Count 241 (150-400) X10^3/uL Neut % (Auto) 68.6 (50-75) % Lymph % (Auto) 18.1 L (25-40) % Holt % (Auto) 11.6 (3-14) % Eos % (Auto) 0.9 L (2-4) % Baso % (Auto) 0.8 (0-2) % Neut # (Auto) 7800 H (6160-5406) /uL Lymph # (Auto) 2100 (2204-1840) /uL Holt # (Auto) 1300 H (0-900) /uL Eos # (Auto) 100 (0-450) /uL Baso # (Auto) 100 (0-100) /uL Sodium 137 (137-145) mmol/L Potassium 4.5 (3.4-5.1) mmol/L Chloride 103 (98-107) mmol/L Carbon Dioxide 26 (22-32) mmol/L BUN 36 H (9-20) mg/dL Creatinine 1.51 H (0.66-1.25) mg/dL Estimated GFR 50 L (>60) mL/min BUN/Creatinine Ratio 23.8 H (6-22) Glucose 112 H (80-110) mg/dL Calcium 9.3 (8.4-10.2) mg/dL Total Bilirubin 0.6 (0.2-1.3) mg/dL AST 98 H (17-59) IU/L ALT 124 H (<50) IU/L Alkaline Phosphatase 104 (38-126) U/L Ammonia 20 (9-30) umol/L Total Protein 8.4 H (6.3-8.2) g/dL Albumin 4.1 (3.5-5.0) g/dL Globulin 4.3 H (1.7-4.1) g/dL Albumin/Globulin Ratio 1.0 (1.0-2.8) Triglycerides (35-150) mg/dL Cholesterol (140-199) mg/dL LDL Cholesterol, Calc (<100) mg/dL HDL Cholesterol (40-60) mg/dL Urine Color Urine Appearance Urine pH (4.5-8.0) Ur Specific [place] (1.000-1.035) Urine Protein (Negative) Urine Glucose (UA) (Negative) g/dL Urine Ketones (NEGATIVE) Urine Occult Blood (Negative) Urine Nitrate (Negative) Urine Bilirubin (NEGATIVE) Urine Urobilinogen (0.2) E.U./dL Ur Leukocyte Esterase (NEGATIVE) Urine RBC (0-5/HPF) Urine WBC (0-5/HPF) Ur Squamous Epith Cells (0-5/HPF) Urine Bacteria (None) Urine Mucus (Negative) Ur Culture Indicated? U Opiates 300ng/mL cut (Negative) Ur Oxycodone Screen (Negative) Urine Methadone Screen (Negative) Ur Barbiturates Screen (Negative) U Tricyclic Antidepress (Negative) Ur Phencyclidine Scrn (Negative) Ur Amphetamines Screen (Negative) U Methamphetamines Scrn (Negative) Ur MDMA Scrn (Ecstasy) (Negative) U Benzodiazepines Scrn (Negative) Urine Cocaine Screen (Negative) U Marijuana (THC) Screen (Negative) Ethyl Alcohol ( - 10) mg/dL 12/05/22 12/05/22 12/06/22 Range/Units 18:45 18:45 00:35 WBC (4.5-11.0) X10^3/uL RBC (4.5-5.9) X10^6/uL Hgb (13.5-17.5) g/dL Hct (41-53) % MCV (80-100) fL MCH (26-34) PG MCHC (30-36) % RDW (11.6-14.8) % Plt Count (150-400) X10^3/uL Neut % (Auto) (50-75) % Lymph % (Auto) (25-40) % Holt % (Auto) (3-14) % Eos % (Auto) (2-4) % Baso % (Auto) (0-2) % Neut # (Auto) (3681-7673) /uL Lymph # (Auto) (2562-1630) /uL Holt # (Auto) (0-900) /uL Eos # (Auto) (0-450) /uL Baso # (Auto) (0-100) /uL Sodium (137-145) mmol/L Potassium (3.4-5.1) mmol/L Chloride (98-107) mmol/L Carbon Dioxide (22-32) mmol/L BUN (9-20) mg/dL Creatinine (0.66-1.25) mg/dL Estimated GFR (>60) mL/min BUN/Creatinine Ratio (6-22) Glucose (80-110) mg/dL Calcium (8.4-10.2) mg/dL Total Bilirubin (0.2-1.3) mg/dL AST (17-59) IU/L ALT (<50) IU/L Alkaline Phosphatase (38-126) U/L Ammonia (9-30) umol/L Total Protein (6.3-8.2) g/dL Albumin (3.5-5.0) g/dL Globulin (1.7-4.1) g/dL Albumin/Globulin Ratio (1.0-2.8) Triglycerides 83 (35-150) mg/dL Cholesterol 220 H (140-199) mg/dL LDL Cholesterol, Calc 164 H (<100) mg/dL HDL Cholesterol 39 L (40-60) mg/dL Urine Color Yellow Urine Appearance Cloudy Urine pH 7.0 (4.5-8.0) Ur Specific [place] 1.020 (1.000-1.035) Urine Protein 2+ H (Negative) Urine Glucose (UA) Negative (Negative) g/dL Urine Ketones Negative (NEGATIVE) Urine Occult Blood 1+ H (Negative) Urine Nitrate Negative (Negative) Urine Bilirubin Negative (NEGATIVE) Urine Urobilinogen 1.0 (0.2) E.U./dL Ur Leukocyte Esterase 3+ H (NEGATIVE) Urine RBC 1-5/hpf (0-5/HPF) Urine WBC >100/hpf H (0-5/HPF) Ur Squamous Epith Cells 0-1 /hpf (0-5/HPF) Urine Bacteria Moderate (10-30) H (None) Urine Mucus 1+ H (Negative) Ur Culture Indicated? Specimen cultured U Opiates 300ng/mL cut (Negative) Ur Oxycodone Screen (Negative) Urine Methadone Screen (Negative) Ur Barbiturates Screen (Negative) U Tricyclic Antidepress (Negative) Ur Phencyclidine Scrn (Negative) Ur Amphetamines Screen (Negative) U Methamphetamines Scrn (Negative) Ur MDMA Scrn (Ecstasy) (Negative) U Benzodiazepines Scrn (Negative) Urine Cocaine Screen (Negative) U Marijuana (THC) Screen (Negative) Ethyl Alcohol < 10 ( - 10) mg/dL 12/06/22 Range/Units 00:35 WBC (4.5-11.0) X10^3/uL RBC (4.5-5.9) X10^6/uL Hgb (13.5-17.5) g/dL Hct (41-53) % MCV (80-100) fL MCH (26-34) PG MCHC (30-36) % RDW (11.6-14.8) % Plt Count (150-400) X10^3/uL Neut % (Auto) (50-75) % Lymph % (Auto) (25-40) % Holt % (Auto) (3-14) % Eos % (Auto) (2-4) % Baso % (Auto) (0-2) % Neut # (Auto) (3085-6922) /uL Lymph # (Auto) (1890-0883) /uL Holt # (Auto) (0-900) /uL Eos # (Auto) (0-450) /uL Baso # (Auto) (0-100) /uL Sodium (137-145) mmol/L Potassium (3.4-5.1) mmol/L Chloride (98-107) mmol/L Carbon Dioxide (22-32) mmol/L BUN (9-20) mg/dL Creatinine (0.66-1.25) mg/dL Estimated GFR (>60) mL/min BUN/Creatinine Ratio (6-22) Glucose (80-110) mg/dL Calcium (8.4-10.2) mg/dL Total Bilirubin (0.2-1.3) mg/dL AST (17-59) IU/L ALT (<50) IU/L Alkaline Phosphatase (38-126) U/L Ammonia (9-30) umol/L Total Protein (6.3-8.2) g/dL Albumin (3.5-5.0) g/dL Globulin (1.7-4.1) g/dL Albumin/Globulin Ratio (1.0-2.8) Triglycerides (35-150) mg/dL Cholesterol (140-199) mg/dL LDL Cholesterol, Calc (<100) mg/dL HDL Cholesterol (40-60) mg/dL Urine Color Urine Appearance Urine pH (4.5-8.0) Ur Specific [place] (1.000-1.035) Urine Protein (Negative) Urine Glucose (UA) (Negative) g/dL Urine Ketones (NEGATIVE) Urine Occult Blood (Negative) Urine Nitrate (Negative) Urine Bilirubin (NEGATIVE) Urine Urobilinogen (0.2) E.U./dL Ur Leukocyte Esterase (NEGATIVE) Urine RBC (0-5/HPF) Urine WBC (0-5/HPF) Ur Squamous Epith Cells (0-5/HPF) Urine Bacteria (None) Urine Mucus (Negative) Ur Culture Indicated? U Opiates 300ng/mL cut Negative (Negative) Ur Oxycodone Screen Negative (Negative) Urine Methadone Screen Negative (Negative) Ur Barbiturates Screen Negative (Negative) U Tricyclic Antidepress Negative (Negative) Ur Phencyclidine Scrn Negative (Negative) Ur Amphetamines Screen Positive H (Negative) U Methamphetamines Scrn Positive H (Negative) Ur MDMA Scrn (Ecstasy) Negative (Negative) U Benzodiazepines Scrn Negative (Negative) Urine Cocaine Screen Negative (Negative) U Marijuana (THC) Screen Negative (Negative) Ethyl Alcohol ( - 10) mg/dL Urine Dip Bedside Urine Glucose Negative Bedside Urine Bilirubin - Negative Bedside Urine Ketone - Negative Urine Specific [place] 1.015 Bedside Urine Occult Blood ++ Bedside Urine pH 6.5 Bedside Urine Protein + 30 Bedside Urine Urobilinogen - Negative Bedside Urine Nitrite - Negative Bedside Urine Leukocytes ++ [address] scan - head: Radiologist Impression: PROCEDURE:? CT HEAD/BRAIN WO CON ? INDICATIONS:? ALTERED MENTAL STATUS ? TECHNIQUE:? Noncontrast 4.5 mm thick angled axial sections acquired from the foramen magnum to the vertex, with coronal and sagittal reformats.? For radiation dose reduction, the following was used:? automated exposure control, adjustment of mA and/or kV according to patient size.? ? COMPARISON:? [facility], , MR STROKE, 07/30/2020, 8:12. ? FINDINGS:? Image quality:? Excellent.? ? CSF spaces:? Basal cisterns are patent.? No extra-axial fluid collections.? The ventricles are symmetric in size and shape.? ? Brain:? No intracranial bleeds or masses.? New moderate subacute versus chronic left frontal lobe infarct.? New moderate subacute versus chronic right parietal lobe infarct.? There is cerebral volume loss for age, with resultant ventricular and sulcal prominence.? There are periventricular and deep white matter chronic small vessel ischemic changes.? There is intracranial internal carotid artery atherosclerosis.? ? Skull and face:? Calvarium and visualized facial bones appear intact, without suspicious lesions.? ? Sinuses:? Visualized sinuses and mastoids are clear.? ? IMPRESSION:? Moderate subacute versus chronic bilateral cerebral infarcts. ? ? Dictated by: Gualberto Tristan M.D. on 12/05/2022 at 19:49 ? ? Approved by: Gualberto Tristan M.D. on 12/05/2022 at 19:49 ? Chest x-ray: Radiologist Impression: PROCEDURE:? XR CHEST 1V ? INDICATIONS:? altered mental status ? TECHNIQUE:? One view of the chest was acquired.? ? COMPARISON:? [facility], , CHEST 1 VIEW, 06/06/2012, 13:11. ? FINDINGS:? ? Surgical changes and devices:? None.? ? Lungs and pleura:? Lungs are clear.? No pleural effusions or pneumothorax.? ? Mediastinum:? Mediastinal contours appear normal.? Heart size is normal.? ? Bones and chest wall:? No suspicious bony lesions.? Overlying soft tissues appear unremarkable.? ? IMPRESSION:? No acute process. ? ? Dictated by: Gualberto Tristan M.D. on 12/05/2022 at 19:26 CTA - brain/neck: Radiologist Impression: PROCEDURE:? CT ANGIO HEAD AND NECK ? INDICATIONS:? bilateral subacute infarcts ? TECHNIQUE:? After the administration of intravenous contrast, 1 mm thick sections acquired from the aortic arch through the [place] of [place].? Post-contrast 4.5 mm thick sections then re-acquired from the foramen magnum to the vertex.? 3-dimensional jozqcae-swgamujby-xgqinntzcu (MIP) and/or volume rendering reformats were acquired of the central intracranial vasculature and neck separately. For radiation dose reduction, the following was used:? automated exposure control, adjustment of mA and/or kV according to patient size.? ? COMPARISON:? [facility], RG, CT ANGIO HEAD, 07/29/2020, 17:51.? [facility], MR, MR STROKE, 07/30/2020, 8:12.? [facility], CT, CT HEAD/BRAIN WO CON, 12/05/2022, 19:32. ? FINDINGS:? Image quality:? Excellent.? ? BRAIN:? CSF spaces:? Basal cisterns are patent.? No extra-axial fluid collections.? The ventricles are symmetric in size and shape.? There is cerebral volume loss, with resultant ventricular and sulcal prominence.? ? Brain:? No intracranial hematoma collections, mass, or mass effect.? There is cortical and subcortical hypodensity with mild associated volume loss in the left frontal and right posterior parietal lobes consistent with subacute to chronic or chronic infarcts.? There are subcortical, periventricular and deep white matter hypodensities consistent with chronic small vessel ischemic changes.? No abnormal intracranial enhancement.? ? Skull and face:? Calvarium and facial bones appear intact, without suspicious lesions.? Orbits appear normal.? ? Sinuses:? Sinuses and mastoids are clear.? ? HEAD CT ANGIOGRAPHY:? Anterior circulation:? There is occlusion of the left internal carotid artery.? The paired anterior cerebral arteries appear patent bilaterally.? The anterior communicating artery also appears patent. The middle cerebral arteries appear patent bilaterally. ? No cerebral aneurysms identified. ? Posterior circulation:? Visualized portions of the vertebral arteries demonstrate normal caliber, and join to form a patent basilar artery.? The posterior cerebral arteries appears patent bilaterally.? No high-grade stenosis, occlusion, or filling defects.? No cerebral aneurysms identified. ? NECK CT ANGIOGRAPHY:? Carotid system:? The great vessels demonstrate a conventional anatomy as they arise from the aortic arch.? The common carotid arteries appear patent bilaterally.? There is occlusion of the left internal carotid artery at the level of the aortic bifurcation.? The right carotid bulb demonstrates mild calcified plaque with minimal narrowing of less than 50%. ? Posterior circulation:? The origins of the vertebral arteries both appear patent.? The more superior extracranial portions of both vertebral arteries also demonstrate normal courses and calibers.? They join to form a patent basilar artery.? ? Soft tissues:? Visualized neck soft tissues demonstrate no suspicious abnormalities.? ? Bones:? No suspicious bony lesions.? Visualized cervical spine demonstrates straightening of the cervical lordosis.? There is multilevel degenerative disc disease and facet joint arthropathy.? ? ? IMPRESSION:? ? 1. Occlusion of the left internal carotid artery beginning from the level of the carotid bifurcation.? There is reconstitution of flow within the left anterior and middle cerebral arteries through collateral flow from the [id number]. ? 2. Subacute to chronic versus chronic infarcts redemonstrated within the left frontal and right parietal lobes.? Findings are suggestive of watershed territory infarcts. ? Any quantitative measurements of stenosis were performed using NASCET criteria.? ? ? Dictated by: Justin Hussein M.D. on 12/06/2022 at 1:14 ? ? [facility] Narrative Medical decision making narrative: Patient 67-year-old male history of methamphetamine abuse with chronic issues. reports difficulty walking. Head CT and CT angio show bilateral infarcts. The CT angio did show left carotid occlusion. Does not seem to be acute. brought him in today for UTI like symptoms. He is mild leukocytosis without signs of severe sepsis. He is given 1 dose of Rocephin He is found to have mild TERESA with a creatinine of 1.5 he is negative troponin. Discussion with stroke doctor in regards to CT results which are probably chronic however left occluded carotid is a risk factor. Patient is likely going to be lost to follow-up due to moving and substance. Recommends an MRI in the morning and preventative medications. Dr. Magallanes accepts patient Discharge Plan Departure Patient Disposition: Admitted as Observation Clinical Impression: CVA (cerebral vascular accident), Acute UTI Admit Date/Time: 12/06/22 04:15 Admit Provider: Scot Magallanes
--- NOTE | 2022-12-06 00:38 | DI.CT.S_ITS ---
PROCEDURE: CT ANGIO HEAD AND NECK INDICATIONS: bilateral subacute infarcts TECHNIQUE: After the administration of intravenous contrast, 1 mm thick sections acquired from the aortic arch through the [place] of [place]. Post-contrast 4.5 mm thick sections then re-acquired from the foramen magnum to the vertex. 3-dimensional ojrpvuw-zxeooucps-qmxifwxelh (MIP) and/or volume rendering reformats were acquired of the central intracranial vasculature and neck separately. For radiation dose reduction, the following was used: automated exposure control, adjustment of mA and/or kV according to patient size. COMPARISON: [facility], RG, CT ANGIO HEAD, 07/29/2020, 17:51. [facility], MR, MR STROKE, 07/30/2020, 8:12. [facility], CT, CT HEAD/BRAIN WO CON, 12/05/2022, 19:32. FINDINGS: Image quality: Excellent. BRAIN: CSF spaces: Basal cisterns are patent. No extra-axial fluid collections. The ventricles are symmetric in size and shape. There is cerebral volume loss, with resultant ventricular and sulcal prominence. Brain: No intracranial hematoma collections, mass, or mass effect. There is cortical and subcortical hypodensity with mild associated volume loss in the left frontal and right posterior parietal lobes consistent with subacute to chronic or chronic infarcts. There are subcortical, periventricular and deep white matter hypodensities consistent with chronic small vessel ischemic changes. No abnormal intracranial enhancement. Skull and face: Calvarium and facial bones appear intact, without suspicious lesions. Orbits appear normal. Sinuses: Sinuses and mastoids are clear. HEAD CT ANGIOGRAPHY: Anterior circulation: There is occlusion of the left internal carotid artery. The paired anterior cerebral arteries appear patent bilaterally. The anterior communicating artery also appears patent. The middle cerebral arteries appear patent bilaterally. No cerebral aneurysms identified. Posterior circulation: Visualized portions of the vertebral arteries demonstrate normal caliber, and join to form a patent basilar artery. The posterior cerebral arteries appears patent bilaterally. No high-grade stenosis, occlusion, or filling defects. No cerebral aneurysms identified. NECK CT ANGIOGRAPHY: Carotid system: The great vessels demonstrate a conventional anatomy as they arise from the aortic arch. The common carotid arteries appear patent bilaterally. There is occlusion of the left internal carotid artery at the level of the aortic bifurcation. The right carotid bulb demonstrates mild calcified plaque with minimal narrowing of less than 50%. Posterior circulation: The origins of the vertebral arteries both appear patent. The more superior extracranial portions of both vertebral arteries also demonstrate normal courses and calibers. They join to form a patent basilar artery. Soft tissues: Visualized neck soft tissues demonstrate no suspicious abnormalities. Bones: No suspicious bony lesions. Visualized cervical spine demonstrates straightening of the cervical lordosis. There is multilevel degenerative disc disease and facet joint arthropathy. IMPRESSION: 1. Occlusion of the left internal carotid artery beginning from the level of the carotid bifurcation. There is reconstitution of flow within the left anterior and middle cerebral arteries through collateral flow from the [id number]. 2. Subacute to chronic versus chronic infarcts redemonstrated within the left frontal and right parietal lobes. Findings are suggestive of watershed territory infarcts. Any quantitative measurements of stenosis were performed using NASCET criteria. Dictated by: Justin Hussein M.D. on 12/06/2022 at 1:14 Approved by: Justin Hussein M.D. on 12/06/2022 at 1:25
[2022-12-06 00:46] LABS: Appearance Urine UA CLOUDY; Bilirubin Urine UA NEGATIVE (NEGATIVE); Color Urine UA YELLOW; Glucose Urine UA NEGATIVE (Negative); Ketones Urine UA NEGATIVE (NEGATIVE); Leukocyte Esterase Urine UA 3+ (NEGATIVE); Nitrite Urine UA NEGATIVE (Negative); Occult Blood Urine UA 1+ (Negative); Protein Urine UA 2+ (Negative)
[2022-12-06 00:52] LABS: UR Morphine/Opiate cutoff 300 Negative (Negative); Ur Creatinine Normal (Normal); Ur Specific Gravity Normal (Normal); Urine Amphetamines Positive (Negative); Urine Barbiturates Negative (Negative); Urine Benzodiazepines Negative (Negative); Urine Cocaine Negative (Negative); Urine MDMA Negative (Negative); Urine Methadone Negative (Negative); Urine Methamphetamines Positive (Negative); Urine Oxycodone Negative (Negative); Urine Phencyclidine Negative (Negative); Urine Tetrahydrocannabinol Negative (Negative); Urine Tricyclic Antidepressant Negative (Negative); Urine pH Normal (Normal)
[2022-12-06 01:17] LABS: RBC Urine 1-5/HPF (0-5/HPF); Squamous Epithelial Cell Urine 0-1 /HPF (0-5/HPF); WBC Urine >100/HPF (0-5/HPF)
[2022-12-06 01:18] LABS: Bacteria Urine Moderate (10-30); Culture Indicated Urine Specimen Cultured; Mucus Urine 1+ (Negative)
[2022-12-06 01:35] LABS: Ethanol (ETOH) < 10 mg/dL
[2022-12-06] MEDS: cefTRIAXone 1,000 MG in SODIUM CHLORIDE 0.9% 100 ML 200 MG IV (02:17)
--- NOTE | 2022-12-06 03:26 | PC.NURSE ---
patient ate a jello and a chocolate pudding and drank some water. Patients significant other stated that she fed these things to him but ate it all.
--- NOTE | 2022-12-06 04:29 | DI.MRI.S_ITS ---
PROCEDURE: MR HEAD/BRAIN WO CON INDICATIONS: cva TECHNIQUE: Non-contrast axial T1 spin echo, axial T2 fast spin echo, sagittal and axial FLAIR, coronal T2 fast spin echo, axial gradient echo, axial diffusion and ADC through the brain. COMPARISON: [facility], MR, MR STROKE, 07/30/2020, 8:12. [facility], CT, CT ANGIO HEAD AND NECK, 12/06/2022, 0:46. [facility], CT, CT HEAD/BRAIN WO CON, 12/05/2022, 19:32. FINDINGS: Image quality: Excellent. CSF spaces: Ventricles appear symmetric in size and shape. Basal cisterns are patent. No extra-axial fluid collections. Brain: Abnormal diffusion-weighted signal can be seen involving the right parietal lobe, as on series 11 images 67-70. Associated dark signal can be seen on the ADC maps. No intracranial bleeds or mass effects. There is cerebral volume loss for age. There are periventricular and deep white matter chronic small vessel ischemic changes. Brainstem appears normal. Remote infarct with cystic encephalomalacia can be seen involving the left frontal lobe and the right parietal occipital region. Normal intravascular flow voids are present. Skull and face: Calvarial bone marrow is normal in signal. Orbits are normal. Sinuses: Mucous retention cysts can be seen within the left maxillary sinus. [id number] mucosal thickening is seen within the ethmoid air cells and the maxillary sinuses. Ekyg-ji-vgtisjod leftward nasal septal deviation is seen. No abnormal fluid is seen within the mastoid air cells. IMPRESSION: Right parietal lobe acute infarction seen. Areas of cystic encephalomalacia can be seen involving the left frontal lobe and the right proximal region. These chronic infarcts have developed since the 2019 MRI. Additional findings: Left maxillary sinus mucous retention cyst Mild paranasal sinus disease Dictated by: Michael Tolbert M.D. on 12/07/2022 at 9:13 Approved by: Michael Tolbert M.D. on 12/07/2022 at 9:17
[2022-12-06 04:43] LABS: COVID19 -Nasal RAPID Negative (Negative)
--- NOTE | 2022-12-06 05:18 | DI.ECHO.S_ITS ---
[place] [facility]---------+ [facility] +---------+ : : [address] : : : : [id number] : : : : Phone: [phone]+ Echocardiogram Report + + :Name: EDMUNDO KELLEY Study Date: 12/06/2022 Height: 70 in : :[facility] ReadingLocation: Weight: 135 lb: : Gender: Male BSA: 1.8 m2 : :: 1955 Age: 67 yrs : :Reason For Study: CVA : :Ordering Physician: WINIFRED, : :MOISES Performed By: Gracy Coppola : :Referring: MOISES VITALE : + + Interpretation Summary NSR. Normal LV size, wall thickness, wall motion and LV systolic function. EF is 50-55%. Normal chamber sizes. No significant valvular abnormalities. Mildly dilated aortic root. No PFO found on bubble study. No source of embolism found. No prior study available for comparison. Procedure: A two-dimensional transthoracic echocardiogram with color flow and Doppler was performed. The study quality was technically adequate. Patient was unable to be adequately positioned and unable to participate with exam. There is no prior echocardiogram noted for this patient. A saline contrast injection was performed to assess for cardiac shunting. The patient was in normal sinus rhythm during the exam. Left Ventricle: The left ventricle is normal in size and wall thickness. The ejection fraction is estimated to be 50-55%. Right Ventricle: The right ventricle is normal in size and function. Atria: Both atria are normal in size. Injection of contrast documented no interatrial shunt. Bubble study was captured on image frame(s) # 83. Mitral Valve: The mitral valve is normal in structure and function. There is trace mitral regurgitation. Aortic Valve: The aortic valve is normal in structure and function. No aortic regurgitation is present. Tricuspid Valve: The tricuspid valve is normal in structure and function. There is a trace or physiologic amount of tricuspid regurgitation. The right ventricular systolic pressure is estimated to be at least 24 mmHg based on an estimated right atrial pressure of 3 mm Hg. Pulmonic Valve: The pulmonic valve is not well seen, but is grossly normal. Great Vessels: The aortic root is mildly dilated. The ascending aorta could not be visualized. There is mild atherosclerotic plaque(s) in the descending aorta. The pulmonary artery is not well visualized, but is probably normal size. The IVC is of normal diameter and collapses greater than 50% with a sniff. This suggests a low right atrial pressure of 3 mm Hg. Pericardium/ Pleura There is no pericardial effusion. MMode/2D Measurements & Calculations LVIDd: 4.5 cm LVOT diam: 2.3 cm LVIDs: 3.4 cm Ao root diam: 4.0 cm FS: 24.4 % IVSd: 0.74 cm LVPWd: 0.69 cm LV alex. diameter/BSA (cm/m^2): 2.6 LV sys. diameter/BSA (cm/m^2): 1.9 LA A2 area: 18.1 cm2 RA long axis: 5.1 cm LA A4 area: 15.7 cm2 RA area: 17.9 cm2 LA length (vol): 4.4 cm RA vol: 53.2 ml LA vol: 54.9 ml RA : 30.1 ml/m2 LA vol index: 31.1 ml/m2 IVC diam: 1.9 cm RVD1 (basal): 3.8 cm TAPSE: 1.8 cm Doppler Measurements & Calculations Ao V2 max: 113.5 cm/sec LVOT Max Eliseo: 66.4 cm/sec Ao V2 mean: 83.0 cm/sec LV V1 max P.8 mmHg Ao max P.2 mmHg LV V1 VTI: 10.5 cm Ao mean P.0 mmHg STEVIE(I,D): 2.0 cm2 Ao V2 VTI: 21.6 cm STEVIE(V,D): 2.5 cm2 sev ratio: 0.49 STEVIE indexed to BSA (cm^2/m^2): 1.2 MV E max eliseo: 57.7 cm/sec TR max eliseo: 227.8 cm/sec MV A max eliseo: 53.8 cm/sec TR max P.8 mmHg MV E/A: 1.1 PA V2 max: 49.3 cm/sec Med Peak E' Eliseo: 8.5 cm/sec PA V2 mean: 32.3 cm/sec E/E' med: 6.8 PA mean P.49 mmHg Lat Peak E' Eliseo: 10.4 cm/sec PA Accel Time: 0.10 sec E/E' lat: 5.5 E/e' average: 6.2 MV P1/2t: 79.9 msec MV /2t max eliseo: 57.7 cm/sec SV(LVOT): 44.3 ml MVA(2t): 2.8 cm2 Electronically signed by: Aurora Coelho M.D. on Reading Physician:12/06/2022 03:42 PM
[2022-12-06 05:39] LABS: Cholesterol 220 mg/dL (140-199); HDL Cholesterol 39 mg/dL (40-60); LDL Cholesterol Calculated 164 mg/dL (<100); Triglycerides 83 mg/dL (35-150)
--- NOTE | 2022-12-06 06:29 | PM.HP.1 ---
History of Present Illness History of Present Illness Date Patient Seen: 12/06/22 Time Patient Seen: 06:00 Chief complaint: UTI/eye seeping/rt leg numb Narrative: Mr. Villalobos is a 67M with bipolar, TIA, meth abuse who presents to the hospital with multiple symptoms. Patient is lethargic and can not provide history. provided history to ED physician but had left by the time I have seen the patient. Resportedly he is an active meth abuser, remote alcohol abuse. He has been having chronic decline for months and apparently brought him in to the hospital because they are moving out of state. He has had difficulty moving his right leg, which is definitely chronic but worse than usual possibly. He also is sleepy, lethargic and difficulty to arouse. In the ED workup was done, vitals notable for afebrile, heart rate in the 80s, respiratory 20s, blood pressure 120s/60s, 98% on room air. Labs reviewed by me and notable for WBC 11.4, hgb 15.3, plts 241. Na 137, creatinine 1.51. Ammonia 20. Ua with keuk esterase, wbcs, bacteria. Urine drug screen positive for meth. CT head reviewed by me and notable for moderate subacute or chronic infarcts. He was ordered for antibiotics and aspirin and admitted for further treatment. [facility] Medical History Alcohol abuse Bipolar 1 disorder Borderline hyperlipidemia Depression Hypertension, essential Tobacco abuse Surgical History History of mandibular surgery History of tonsillectomy and adenoidectomy Family History Father [place]'s disease Grandfather [place]'s disease Brother [place]'s disease Social History household members: spouse Smoking Status: Current every day smoker alcohol intake: current Meds Home Medications and Allergies Home Medications Medication Instructions Recorded Confirmed Type aspirin 81 mg tablet,delayed 81 mg PO DAILY #30 tabs 07/30/20 Rx release clopidogrel 75 mg tablet 75 mg PO DAILY #30 tabs 07/30/20 Rx metoprolol succinate 50 mg 50 mg PO DAILY #30 tabs 07/30/20 Rx tablet,extended release 24 hr Allergies Allergy/AdvReac Type Severity Reaction Status Date / Time ALEX INHIBITORS Allergy Severe ANAPHYLACTI Uncoded 11/18/17 12:01 C Review of Systems Review of Systems Narrative: 14 systems reviewed and negative aside from what is noted in HPI Exam Vital Signs (past 8 hours): - 12/05/22 22:30 12/05/22 23:00 12/05/22 23:30 Temperature Pulse Rate 73 74 77 Respiratory Rate 16 Blood Pressure Pulse Oximetry 98 98 98 Oxygen Delivery Method Room Air Oxygen Flow Rate 12/06/22 00:03 12/06/22 00:10 12/06/22 00:10 Temperature Pulse Rate 80 80 Respiratory Rate Blood Pressure 176/84 H Pulse Oximetry 99 98 Oxygen Delivery Method Room Air Oxygen Flow Rate 12/06/22 00:30 12/06/22 01:00 12/06/22 01:30 Temperature Pulse Rate 79 83 81 Respiratory Rate Blood Pressure Pulse Oximetry 97 97 95 Oxygen Delivery Method Oxygen Flow Rate 12/06/22 01:49 12/06/22 01:49 12/06/22 02:00 Temperature Pulse Rate 85 107 H Respiratory Rate 18 Blood Pressure 188/80 H Pulse Oximetry 96 92 Oxygen Delivery Method Oxygen Flow Rate 12/06/22 05:01 12/06/22 05:10 Temperature 98.0 F Pulse Rate 75 Respiratory Rate 18 Blood Pressure 158/86 H Pulse Oximetry 96 Oxygen Delivery Method Room Air Oxygen Flow Rate 0 Oxygen Delivery Method Room Air Oxygen Flow Rate 0 Narrative Exam Narrative: GEN: confused, lethargic, poor hygiene, chronically ill appearing HEENT: dry mucous membranes, PERRL CV: regular rate and rhythm, no murmurs PULM: clear bilaterally, no wheezes, rhonchi, rales ABD: soft, nontender, nondistended, no organomegaly EXT: warm and well perfused, right hand swelling NEURO: confuse, lethargic, moving all extremities Objective Labs 12/05/22 18:45 12/05/22 18:45 Labs: Laboratory Results - last 24 hr 12/05/22 12/05/22 12/05/22 18:45 18:45 18:45 WBC 11.4 H RBC 5.44 Hgb 15.3 Hct 45.4 MCV 83.5 MCH 28.1 MCHC 33.6 RDW 13.5 Plt Count 241 Neut % (Auto) 68.6 Lymph % (Auto) 18.1 L Nobles % (Auto) 11.6 Eos % (Auto) 0.9 L Baso % (Auto) 0.8 Neut # (Auto) 7800 H Lymph # (Auto) 2100 Nobles # (Auto) 1300 H Eos # (Auto) 100 Baso # (Auto) 100 Sodium 137 Potassium 4.5 Chloride 103 Carbon Dioxide 26 BUN 36 H Creatinine 1.51 H Estimated GFR 50 L BUN/Creatinine Ratio 23.8 H Glucose 112 H Calcium 9.3 Total Bilirubin 0.6 AST 98 H ALT 124 H Alkaline Phosphatase 104 Ammonia 20 Total Protein 8.4 H Albumin 4.1 Globulin 4.3 H Albumin/Globulin Ratio 1.0 Triglycerides Cholesterol LDL Cholesterol, Calc HDL Cholesterol Urine Color Urine Appearance Urine pH Ur Specific Harrah Urine Protein Urine Glucose (UA) Urine Ketones Urine Occult Blood Urine Nitrate Urine Bilirubin Urine Urobilinogen Ur Leukocyte Esterase Urine RBC Urine WBC Ur Squamous Epith Cells Urine Bacteria Urine Mucus Ur Culture Indicated? U Opiates 300ng/mL cut Ur Oxycodone Screen Urine Methadone Screen Ur Barbiturates Screen U Tricyclic Antidepress Ur Phencyclidine Scrn Ur Amphetamines Screen U Methamphetamines Scrn Ur MDMA Scrn (Ecstasy) U Benzodiazepines Scrn Urine Cocaine Screen U Marijuana (THC) Screen Ethyl Alcohol SARS-CoV-2 (PCR) 12/05/22 12/05/22 12/06/22 18:45 18:45 00:35 WBC RBC Hgb Hct MCV MCH MCHC RDW Plt Count Neut % (Auto) Lymph % (Auto) Nobles % (Auto) Eos % (Auto) Baso % (Auto) Neut # (Auto) Lymph # (Auto) Nobles # (Auto) Eos # (Auto) Baso # (Auto) Sodium Potassium Chloride Carbon Dioxide BUN Creatinine Estimated GFR BUN/Creatinine Ratio Glucose Calcium Total Bilirubin AST ALT Alkaline Phosphatase Ammonia Total Protein Albumin Globulin Albumin/Globulin Ratio Triglycerides 83 Cholesterol 220 H LDL Cholesterol, Calc 164 H HDL Cholesterol 39 L Urine Color Yellow Urine Appearance Cloudy Urine pH 7.0 Ur Specific Harrah 1.020 Urine Protein 2+ H Urine Glucose (UA) Negative Urine Ketones Negative Urine Occult Blood 1+ H Urine Nitrate Negative Urine Bilirubin Negative Urine Urobilinogen 1.0 Ur Leukocyte Esterase 3+ H Urine RBC 1-5/hpf Urine WBC >100/hpf H Ur Squamous Epith Cells 0-1 /hpf Urine Bacteria Moderate (10-30) H Urine Mucus 1+ H Ur Culture Indicated? Specimen cultured U Opiates 300ng/mL cut Ur Oxycodone Screen Urine Methadone Screen Ur Barbiturates Screen U Tricyclic Antidepress Ur Phencyclidine Scrn Ur Amphetamines Screen U Methamphetamines Scrn Ur MDMA Scrn (Ecstasy) U Benzodiazepines Scrn Urine Cocaine Screen U Marijuana (THC) Screen Ethyl Alcohol < 10 SARS-CoV-2 (PCR) 12/06/22 12/06/22 00:35 04:20 WBC RBC Hgb Hct MCV MCH MCHC RDW Plt Count Neut % (Auto) Lymph % (Auto) Nobles % (Auto) Eos % (Auto) Baso % (Auto) Neut # (Auto) Lymph # (Auto) Nobles # (Auto) Eos # (Auto) Baso # (Auto) Sodium Potassium Chloride Carbon Dioxide BUN Creatinine Estimated GFR BUN/Creatinine Ratio Glucose Calcium Total Bilirubin AST ALT Alkaline Phosphatase Ammonia Total Protein Albumin Globulin Albumin/Globulin Ratio Triglycerides Cholesterol LDL Cholesterol, Calc HDL Cholesterol Urine Color Urine Appearance Urine pH Ur Specific Harrah Urine Protein Urine Glucose (UA) Urine Ketones Urine Occult Blood Urine Nitrate Urine Bilirubin Urine Urobilinogen Ur Leukocyte Esterase Urine RBC Urine WBC Ur Squamous Epith Cells Urine Bacteria Urine Mucus Ur Culture Indicated? U Opiates 300ng/mL cut Negative Ur Oxycodone Screen Negative Urine Methadone Screen Negative Ur Barbiturates Screen Negative U Tricyclic Antidepress Negative Ur Phencyclidine Scrn Negative Ur Amphetamines Screen Positive H U Methamphetamines Scrn Positive H Ur MDMA Scrn (Ecstasy) Negative U Benzodiazepines Scrn Negative Urine Cocaine Screen Negative U Marijuana (THC) Screen Negative Ethyl Alcohol SARS-CoV-2 (PCR) Negative Assessment & Plan Assessment & Plan narrative: 1. CVA -timing unknown, likely some chronicity -however given patient will be leaving area soon, ability for follow up is unlikely -workup for cva with mri and echo -ordered aspirin, plavix, statin -keep on tele -[facility], [place] [facility] -check a1c, lipids -PT, OT, speech eval -allow permissive hypertension 2. Acute encephalopathy -etiology not clear possibly secondary to substance abuse vs UTI -will evaluate further on MRI 3. TERESA -clinically is hypovolemic -trial empirically on IV fluids -trend creatinine, if not improving will need imaging and urine electrolytes 4. UTI -UA notable leuk esterase, urine wbc, moderate bacteria -follow up cultures -ordered for ceftriaxone 5. Hypertension -hold anti-hypertensives for now 6. Meth abuse -sw eval 7. Right hand swelling -possibly from trauma -continue to monitor and get additional history from patient when awake I have obtained history from limited information from patient and from ED workup. I have discussed plan of care with ED physician and bedside nurse. I have reviewed labs and CT head imaging and previous medical notes. CODE: Full Proxy: Darline Carreon
[2022-12-06] MEDS: SODIUM CHLORIDE 0.9% 1,000 ML 100 ML IV ×2 (06:56→16:35)
[2022-12-06] MEDS: ASPIRIN EC 81 MG TABLET PO (09:30)
[2022-12-06] MEDS: ENOXAPARIN 40 MG/0.4 ML SYRINGE SUBCUT (09:31)
[2022-12-06] MEDS: METOPROLOL ER 50 MG TABLET PO (09:31)
[2022-12-06] MEDS: CLOPIDOGREL 75 MG TABLET PO (09:31)
--- NOTE | 2022-12-06 09:42 | DI.US.S_ITS ---
PROCEDURE: US PERIPH VENOUS UP EXTREM RT INDICATIONS: right arm swollen, look for DVT TECHNIQUE: Real-time imaging, as well as color and pulse Doppler interrogation, was performed of the right upper extremity deep veins from the inferior neck to the antecubital fossa. COMPARISON: None. FINDINGS: The internal jugular vein, visualized portions of the subclavian vein, axillary, and brachial veins are free of intraluminal thrombus. Where physically possible, the veins are normally compressible. Color and pulse Doppler demonstrate normal intraluminal flow, with expected phasicity and pulsatility. Additional scanning of the visualized cephalic and basilic veins of the superficial system demonstrate normal compressibility, without thrombus. However, the cephalic vein is not well seen. IMPRESSION: Negative for deep venous thrombosis. Dictated by: Michael Tolbert M.D. on 12/06/2022 at 16:04 Approved by: Michael Tolbert M.D. on 12/06/2022 at 16:05
--- NOTE | 2022-12-06 11:50 | ST.IPCSEOM ---
Visit Care Team Role Provider Type Iris Marshall DO Emergency Provider Physician Referring Provider Specialty: Emergency Medicine Address: [address] [place] [address], [address] Email: [email or web address] Scot Magallanes MD Admit Provider Physician Attending Provider Specialty: Hospitalist Address: [address] [place] [address], [address] Fax: Email: [email or web address] Medical History (Last Reviewed 12/06/22 @ 06:30 by Scot Magallanes MD) Alcohol abuse (Social Hx) Bipolar 1 disorder (Medical) Borderline hyperlipidemia (Medical) Depression (Medical) Hypertension, essential (Medical) Tobacco abuse (Medical) Speech-Language Pathology Swallow Evaluation PRESSING DEPARTMENT SUPERVISOR Clinical Swallow Evaluation Start: 12/06/22 11:39 Freq: Status: Active Protocol: Document 12/06/22 11:39 MG (Rec: 12/06/22 11:50 MG [id number]) Clinical Swallow Evaluation Session Time Visit Start Time 09:10 Visit Stop Time 09:30 Total Visit Minutes 20 Visit Information Visit Number 1 Setting Assessment Location Acute Care Visit Type Note Type Initial evaluation Next Note Type Next Note Type Treatment Note Patient Information Identification Type Name,Wristband History Per H&P: Pt is a 67M with bipolar, TIA, meth abuse who presents to the hospital with multiple symptoms. Patient is lethargic and can not provide history. provided history to ED physician. Reportedly he is an active meth abuser, remote alcohol abuse. He has been having chronic decline for months and apparently brought him in to the hospital because they are moving out of state. He has had difficulty moving his right leg, which is definitely chronic but worse than usual possibly. He also is sleepy, lethargic and difficulty to arouse. Subjective Observations Pt was resting in bed with breakfast tray in front of him upon PRESSING DEPARTMENT SUPERVISOR arrival. Was able to be aroused and ate some breakfast with PRESSING DEPARTMENT SUPERVISOR assistance the majority of the time. Appeared fatigued and had difficulty using utensils independently. Pt reported his is ambidextrous but eats with his left hand. Reported by Patient Current Diet Regular Baseline Feeding Method Needs some assistance Patient Questionnaire No Objective Assessment Mental Status Responsive,Cooperative, Lethargic Oral Integrity Oral residue,Thrush Dentition Missing teeth,Decay Lip Function Within normal limits Observation of Lips at Rest Symmetrical Pucker Within normal limits Lip Retraction Within normal limits Alternating Pucker/Lip Retraction Within normal limits Tongue Function Within normal limits Observations of Tongue at Rest Within normal limits Tongue Protrusion Within normal limits Tongue Retraction Within normal limits Tongue Lateralization Within normal limits Jaw Function Within normal limits Observations of Jaw at Rest Within normal limits Jaw Opening Within normal limits Jaw Closing Within normal limits Jaw Lateralization Within normal limits Jaw Protrusion Within normal limits Jaw Retraction Within normal limits Hard/Soft Palate Function Within normal limits Observations of Hard/Soft Palate Within normal limits Phonation Reduced loudness Respiratory Sufficiency Within normal limits Comment Pt spoke quietly and was fatigued. Oral care is poor, however pt was observed to masticate regular solids without overt difficulty. Food and Liquid Trials Position During Assessment Upright (90 degrees) Liquids Trialed Thin Solids Trialed Regular Administration Type Cup single sip,Needs some assistance Oral Impairment Mildly impaired Oral Phase Comments Oral care is very poor. Pt did masticate within reasonable time. No anterior spillage noted. Lips fully enclosed over utensil when PRESSING DEPARTMENT SUPERVISOR assisted in feeding the pt. Pharyngeal Impairment Within functional limits Pharyngeal Phase Comments Laryngeal palpation indicates adequate hyolyarngeal movement and anterior hyoid excursion at this time. Pt reported no difficulties with his breakfast tray, which consisted of [place] toast, sausage link, and fruit with coffee to drink. No overt s/sx of aspiration noted. Fatigue/Endurance Moderate fatigue Comment Pt very fatigued but was arousable. Appeared to perk up a little during meal time. Could self feed but only with hands vs utensils. Findings Swallowing Function Within functional limits Severity of Swallow Impairment Within functional limits Contributing Factors to Swallow Reduced alertness or attention Impairment ,Difficulty following directions Prognosis Good Based on Comorbidities Impact on Safety and Functioning Risk for aspiration Recommendations Instrumental Assessment No Swallowing Treatment Yes Frequency x1 to monitor diet tolerance and fatigue Recommended Solids Regular Recommended Liquids Thin Safety Precautions/Swallowing 1 to 1 distant supervision, Recommendations Feed only when alert,Remain upright (90 degrees) during all oral intake,Small bites and sips when eating,Slow rate ; swallow between bites Medication Recommendations As Tolerated Discharge Recommendations Home,long-term facility, Home with Home Health Education Patient/Caregiver Education Described results of evaluation,Patient expressed understanding of evaluation, Patient expressed agreement with goals & treatment plans, Patient expressed understanding of safety precautions,Patient expressed understanding of feeding recommendations Goals Long-term Goals Pt will tolerate least restrictive diet without demonstrating overt s/sx of aspiration.
[2022-12-06] MEDS: PHENAZOPYRIDINE 100 MG TABLET PO ×3 (12:05→20:26)
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
--- NOTE | 2022-12-06 14:56 | PT.IIE ---
Surgical History (Last Reviewed 12/06/22 @ 06:30 by Scot Magallanes MD) History of mandibular surgery History of tonsillectomy and adenoidectomy Medical History (Last Reviewed 12/06/22 @ 06:30 by Scot Magallanes MD) Alcohol abuse Bipolar 1 disorder Borderline hyperlipidemia Depression Hypertension, essential Tobacco abuse Physical Therapy Inpatient Evaluation/Re-Eval M1 PT/OT-IP Prior Functional Status Start: 12/06/22 14:32 Freq: NEEDED Status: Active Protocol: Document 12/06/22 14:32 ES (Rec: 12/06/22 14:56 ES [id number]) Medical Review Prior Functional Status Medical History Reviewed Yes Mobility and Gait Varied; could be indep with cane or FWW, other times needed assist with w/c. Spouse stated patient at one time recently was walking 30-50 yards with a cane. Activities of Daily Living and IADL's Varied; spouse assisted with dressing, feeding, though sometimes able to feed self indep. Prior Functional Level (Other details) reported patient has been declining for the past 6 months. Has a hx of R-sided deficits but stated he was able to still do fine motor tasks such as sautering. Social History Household Members spouse Living Arrangements RV Number of Floors (Floors) One Floor Number of Stairs To Enter/Railing? 5 with rail and handle into mobile home Home Equipment Front Wheel Walker,Straight Cane,Manual Wheelchair Additional Social History Comment Patient is currently living in a mobile home with his spouse Darline. Mobile home is parked at the [facility] after being forced to move from their previous location. It is not currently hooked up to water, so they have been using the campground facilities. They are planning to move to [place], [place] to live in a handicap accessible 's apartment there. M2 PT-IP Current Condition Start: 12/06/22 14:32 Freq: NEEDED Status: Active Protocol: Document 12/06/22 14:32 ES (Rec: 12/06/22 14:56 ES [id number]) Physical Therapy Current Condition Current Condition Evaluation Date 12/06/22 Treatment Diagnosis CVA, ecephalopathy, TERESA, weakness Onset Date 12/05/22 M3 PT-IP Subjective Start: 12/06/22 14:32 Freq: NEEDED Status: Active Protocol: Document 12/06/22 14:32 ES (Rec: 12/06/22 14:56 ES [id number]) Subjective Physical Therapy Visit Type Type Initial Evaluation Visit Start Time 13:25 Visit Stop Time 13:57 Total Visit Minutes 32 Physical Therapy Visit Comments Patient Comments Patient resting in bed, spouse present. Patient wakened with tactile stimulus. Patient agreeable to get up with therapy. Patient Goals Spouse wants patient to get well enough to travel in mobile home to move to [place]. Therapy Pain Assessment Pain Present Pain Present Denied Pain M4 PT-IP Mobility and Gait Start: 12/06/22 14:32 Freq: NEEDED Status: Active Protocol: Document 12/06/22 14:32 ES (Rec: 12/06/22 14:56 ES [id number]) PT-Bed Mobility Assessment Supine to Sit Supine to Sit Standby Assistance,Head of Bed Elevated,Bedrails Sit to Supine Sit to Supine Standby Assistance,Head of Bed Elevated,Bedrails Scooting Scooting to Edge of Bed Minimal Assistance PT-Transfer Assessment Sit to and From Stand Sit to and from Stand Minimal Assistance,Use of Upper Extremities Equipment Transfer Assistive Device Gait Belt,Front Wheeled Walker Orthotic/Prosthetic Devices or Brace: No Transfers Transfer Destination Chair Transfer Technique Stand Step Pivot Transfer Ability Level of Assist Minimal Assistance,Use of Upper Extremities Comments Mobility Comments Min A to boost to stand and for eccentric control. Cues for hand placement on chair for safety. Assist to position R hand on FWW handle. Gait Assessment Gait Gait Assistance Required: Minimum Assistance Distance (Feet) 10 Assistive Devices Assistive Device Gait Belt,Front Wheeled Walker Gait Deviations General Gait Pattern Decreased Stride Length, Decreased Feet Clearance,Wide Based Gait Factors Limiting Gait Function Factors Limiting Gait Function Decreased Strength,Poor Balance Comments Gait Comments Patient had some difficulty turning due to decreased strength RUE for maneuvering FWW. PT-Balance Assessment Sitting Balance and Reactions Static Sitting Balance Ability Good Dynamic Sitting Balance Ability Fair Standing Balance and Reactions Static Standing Balance Ability Fair Dynamic Standing Balance Ability Fair Device Used FWW M5 PT-IP Objective Assessments Start: 12/06/22 14:32 Freq: NEEDED Status: Active Protocol: Document 12/06/22 14:32 ES (Rec: 12/06/22 14:56 ES [id number]) Orientation Orientation/Cognition Level of Alertness Lethargic Orientation Name,Birthday,Month,Year,Place ,Situation Safety Awareness Understands Safety Issues Memory Description No Deficits Noted Comments Decreased speech volume, difficult to understand. Gross Range of Motion Upper Extremity ROM Assessment Right Impaired Impairments R hand and distal forearm swollen and stiff. R shoulder ROM to 75% of L. Lower Extremity ROM Assessment Right Impaired Impairments Increased stiffness R ankle DF Strength Upper Extremity Strength Assessment Right Impaired Shoulder 4-/5 Elbow 4-/5 Wrist 3+/5 Hand 3-/5 Lower Extremity Strength Assessment Right Impaired Hip 4/5 Knee 4/5 Ankle 4/5 Comments Strength Comments L UE/LE 4+/5 Coordination Assessment Gross Coordination Gross Coordination Impaired Assessment Coordination Comments R side impaired Sensation Assessment Comments Sensation Comments Unable to assess formally; patient not able to understand instructions. Denied numbness /tingling. M6 PT-IP Treatment Start: 12/06/22 14:32 Freq: NEEDED Status: Active Protocol: Document 12/06/22 14:32 ES (Rec: 12/06/22 14:56 ES [id number]) Physical Therapy Treatment Education Education Provided Safety M7 PT-IP Assessment and Plan Start: 12/06/22 14:32 Freq: NEEDED Status: Active Protocol: Document 12/06/22 14:32 ES (Rec: 12/06/22 14:56 ES [id number]) PT Summary Assessment and Plan Potential Rehabilitation Potential Good Status of Condition at Evaluation Evolving Summary Impairments Strength,Balance,Cognition, Transfers,Gait,Activity Tolerance Assessment Summary Patient is a 67 year old male who presents with impaired functional mobility at baseline that has progressively worsened, now acutely more impaired during this episode. Patient demonstrates R-sided weakness UE>LE which spouse endorsed is worse than it was previously. Patient required assistance with transfers and gait, demonstrated decreased activity tolerance for functional activity, and is at increased risk for falls. He would benefit from further skilled PT to improve strength and for caregiver training in order to increase safety and independence with mobility to be able to return to their mobile home. Goals Bed Mobility Goal Independent Transfer Goal Standby Assistance,Cane,Front Wheeled Walker Gait Goal Standby Assistance,Cane,Front Wheel Walker Gait Distance 100 Other Goals Patient will be able to ascend /descend 5 steps with single rail with CGA. Days to Meet Goals 5 Frequency of Treatment Frequency Of Treatment Once a Day Treatment Plan Physical Therapy Treatment Plan Bed Mobility Training,Transfer Training,Gait Training, Therapeutic Exercise,Balance Retraining,Discharge Planning, Neuromuscular Re-ed,Manual Therapy Other Recommendations and Next Treatment Progress transfers, gait, and Focus stairs. Caregiver training with spouse. Recommendations To Nursing Amount of Assist Needed 1 Person Assist Discharge Recommendations PT Discharge Recommendations Home with 24/7 Assist Available Transportation Needs at Discharge Private Vehicle,Wheelchair/ Cabulance
[2022-12-06] MEDS: ATORVASTATIN 20 MG TABLET 40 MG PO (20:26)
[2022-12-07] VITALS (10 sets, daily range): BP systolic 138–152; BP diastolic 72–87; PULSE 63–75; RESP 14–20; TEMP 36.3–37.6; O2SAT 95–98
[2022-12-07] MEDS: cefTRIAXone 1,000 MG in SODIUM CHLORIDE 0.9% 100 ML 200 MG IV ×2 (01:49→01:54)
[2022-12-07] MEDS: SODIUM CHLORIDE 0.9% 1,000 ML 100 ML IV ×2 (01:55→17:28)
[2022-12-07] MEDS: METOPROLOL ER 50 MG TABLET PO (08:09)
[2022-12-07] MEDS: ENOXAPARIN 40 MG/0.4 ML SYRINGE SUBCUT (08:09)
[2022-12-07] MEDS: ASPIRIN EC 81 MG TABLET PO (08:09)
[2022-12-07] MEDS: CLOPIDOGREL 75 MG TABLET PO (08:10)
[2022-12-07] MEDS: PHENAZOPYRIDINE 100 MG TABLET PO ×3 (08:10→20:56)
[2022-12-07 09:10] LABS: Add Manual Diff / Slide Review NO; Basophils Absolute Auto 100 /uL (0-100); Basophils Percent Auto 1.2 % (0-2); Eosinophils Absolute Auto 200 /uL (0-450); Eosinophils Percent Auto 1.9 % (2-4); Hematocrit 38.5 % (41-53); Hemoglobin 12.9 g/dL (13.5-17.5); Lymphocytes Absolute Auto 2100 /uL (1100-4500); Lymphocytes Percent Auto 22.9 % (25-40); Mean Corpuscular HGB Conc 33.5 % (30-36); Mean Corpuscular Hemoglobin 27.9 PG (26-34); Mean Corpuscular Volume 83.4 fL (80-100); Monocytes Absolute Auto 1100 /uL (0-900); Monocytes Percent Auto 11.9 % (3-14); Neutrophils Absolute Auto 5800 /uL (1500-7000); Neutrophils Percent Auto 62.1 % (50-75); Platelet Count 180 X10^3/uL (150-400); Red Blood Cell Count 4.62 X10^6/uL (4.5-5.9); Red Cell Distribution Width 13.7 % (11.6-14.8); White Blood Cell Count 9.4 X10^3/uL (4.5-11.0)
[2022-12-07 09:27] LABS: BUN Creatinine Ratio 27.7 (6-22); Blood Urea Nitrogen 23 mg/dL (9-20); Carbon Dioxide 25 mmol/L (22-32); Chloride 106 mmol/L (98-107); Estimated Glomerular Filt Rate > 60 mL/min (>60); Glucose 119 mg/dL (80-110); HEMOLYSIS < 15 (0-50); Potassium 4.3 mmol/L (3.4-5.1); Sodium 136 mmol/L (137-145)
[2022-12-07] MEDS: ACETAMINOPHEN 325 MG TABLET 650 MG PO ×2 (12:29→18:15)
--- NOTE | 2022-12-07 15:53 | PM.PN.1 ---
Subjective Subjective Date Patient Seen: 12/07/22 Interval history: 67 yo male with bipolar, TIA, meth abuse adm with altered mental status. MRI c/w acute CVA rt parietal and remote CVA lt frontal and rt parietal regions. Pt is diffcult to arouse and won't verbalize. Exam Vital Signs (past 8 hours): - 12/07/22 08:09 12/07/22 09:39 12/07/22 12:29 Temperature 99.6 F Pulse Rate 68 68 Respiratory Rate Blood Pressure 152/81 H Pulse Oximetry Oxygen Flow Rate 12/07/22 13:40 12/07/22 12:00 Temperature 97.9 F 99.1 F Pulse Rate 74 Respiratory Rate 20 Blood Pressure 138/72 Pulse Oximetry 97 Oxygen Flow Rate 0 Oxygen Delivery Method Room Air Oxygen Flow Rate 0 Narrative Exam Narrative: Gen: somnolent, unarousable Objective Labs 12/07/22 09:00 12/07/22 09:00 Labs: Laboratory Results - last 24 hr 12/07/22 12/07/22 09:00 09:00 WBC 9.4 RBC 4.62 Hgb 12.9 L Hct 38.5 L MCV 83.4 MCH 27.9 MCHC 33.5 RDW 13.7 Plt Count 180 Neut % (Auto) 62.1 Lymph % (Auto) 22.9 L [place] % (Auto) 11.9 Eos % (Auto) 1.9 L Baso % (Auto) 1.2 Neut # (Auto) 5800 Lymph # (Auto) 2100 [place] # (Auto) 1100 H Eos # (Auto) 200 Baso # (Auto) 100 Sodium 136 L Potassium 4.3 Chloride 106 Carbon Dioxide 25 BUN 23 H Creatinine 0.83 Estimated GFR > 60 BUN/Creatinine Ratio 27.7 H Glucose 119 H Calcium 8.0 L PFSH Medical History Alcohol abuse Bipolar 1 disorder Borderline hyperlipidemia Depression Hypertension, essential Tobacco abuse Surgical History History of mandibular surgery History of tonsillectomy and adenoidectomy Family History Father [place]'s disease Grandfather Johnie's disease Brother [place]'s disease Social History household members: spouse Smoking Status: Current every day smoker alcohol intake: current Assessment & Plan Assessment & Plan narrative: 1. CVA, acute + chronic -timing unknown, likely some chronicity -MRI: acute CVA rt parietal, and encephalomalacia lt frontal and rt parietal c/w remote CVA -CTA: occluded lt ICA -ECHO: no PFO, EF 50-55% -cont aspirin, plavix, statin -tele -[facility] qshift -check a1c, lipids - LDL 164 -PT, OT, speech eval -allow permissive hypertension 2. Acute encephalopathy -likely secondary to CVA 3. TERESA, resolved -clinically hypovolemic -cont NS 4. UTI ruled out -UA notable leuk esterase, urine wbc, moderate bacteria -neg urine cx, d/c'd abx 5. Hypertension -hold anti-hypertensives for now 6. Meth abuse -sw eval 7. Right UE swelling -possibly from trauma -venous US neg for DVT -continue to monitor and get additional history from patient when awake
--- NOTE | 2022-12-07 16:02 | PT.IPTN ---
Physical Therapy Treatment Note M2 PT-IP Current Condition Start: 12/06/22 14:32 Freq: NEEDED Status: Active Protocol: Document 12/06/22 14:32 ES (Rec: 12/06/22 14:56 ES [id number]) Physical Therapy Current Condition Current Condition Evaluation Date 12/06/22 Treatment Diagnosis CVA, ecephalopathy, TERESA, weakness Onset Date 12/05/22 M3 PT-IP Subjective Start: 12/06/22 14:32 Freq: NEEDED Status: Active Protocol: Document 12/07/22 15:34 KS (Rec: 12/07/22 16:11 KS [id number]) Subjective Physical Therapy Visit Type Type Treatment Note Visit Start Time 15:34 Visit Stop Time 16:02 Total Visit Minutes 28 Number of APPAREL SALES LEADER Visits 1 Physical Therapy Visit Comments Patient Comments Patient resting in bed, spouse present. Patient wakened with tactile stimulus. Patient agreeable to get up with therapy. M4 PT-IP Mobility and Gait Start: 12/06/22 14:32 Freq: NEEDED Status: Active Protocol: Document 12/07/22 15:34 KS (Rec: 12/07/22 16:11 KS [id number]) PT-Bed Mobility Assessment Supine to Sit Supine to Sit Standby Assistance,Head of Bed Elevated,Bedrails Sit to Supine Sit to Supine Minimal Assistance,1 Person Assistance,Head of Bed Elevated Scooting Scooting to Edge of Bed Minimal Assistance PT-Transfer Assessment Sit to and From Stand Sit to and from Stand Minimal Assistance,Use of Upper Extremities Equipment Transfer Assistive Device Gait Belt,Front Wheeled Walker Orthotic/Prosthetic Devices or Brace: No Transfers Transfer Destination Bed Transfer Technique ambulated Transfer Ability Level of Assist Minimal Assistance,Use of Upper Extremities Comments Mobility Comments Pt in bed upon arrival, somewhat difficult to arouse. Pt SBA for sup<>sit, Min A for scooting EOB and sit<>stand w / FWW. Able to lift hips for brief change from RN. Pt Min A for sit<>stand w/ FWW. Able to march in place and then ambulated 10 ft w/ FWW Min A. Difficulty avoiding obstacles and unsteady on feet. Returned to bed and completed 4 additional sit<>stands, marching in place w/ high knees as pt will eventually have to navigate stairs if going home. Not appropriate for stair training today, pt lethargic, weak, and w/ word finding difficulty. Min A for LE elevation back into bed, left w/ alarm on and all needs in reach w/ in room. Gait Assessment Gait Gait Assistance Required: Minimum Assistance Distance (Feet) 10 Assistive Devices Assistive Device Gait Belt,Front Wheeled Walker Gait Deviations General Gait Pattern Decreased Stride Length, Decreased Feet Clearance,Wide Based Gait Factors Limiting Gait Function Factors Limiting Gait Function Decreased Strength,Poor Balance Stair Climbing Assessment Comments Stair Climbing Comments Not assessed, not yet appropriate PT-Balance Assessment Sitting Balance and Reactions Static Sitting Balance Ability Good Dynamic Sitting Balance Ability Fair Standing Balance and Reactions Static Standing Balance Ability Fair Dynamic Standing Balance Ability Fair Device Used FWW M5 PT-IP Objective Assessments Start: 12/06/22 14:32 Freq: NEEDED Status: Active Protocol: Document 12/06/22 14:32 ES (Rec: 12/06/22 14:56 ES [id number]) Orientation Orientation/Cognition Level of Alertness Lethargic Orientation Name,Birthday,Month,Year,Place ,Situation Safety Awareness Understands Safety Issues Memory Description No Deficits Noted Comments Decreased speech volume, difficult to understand. Gross Range of Motion Upper Extremity ROM Assessment Right Impaired Impairments R hand and distal forearm swollen and stiff. R shoulder ROM to 75% of L. Lower Extremity ROM Assessment Right Impaired Impairments Increased stiffness R ankle DF Strength Upper Extremity Strength Assessment Right Impaired Shoulder 4-/5 Elbow 4-/5 Wrist 3+/5 Hand 3-/5 Lower Extremity Strength Assessment Right Impaired Hip 4/5 Knee 4/5 Ankle 4/5 Comments Strength Comments L UE/LE 4+/5 Coordination Assessment Gross Coordination Gross Coordination Impaired Assessment Coordination Comments R side impaired Sensation Assessment Comments Sensation Comments Unable to assess formally; patient not able to understand instructions. Denied numbness /tingling. M6 PT-IP Treatment Start: 12/06/22 14:32 Freq: NEEDED Status: Active Protocol: Document 12/07/22 15:34 KS (Rec: 12/07/22 16:11 KS [id number]) Physical Therapy Treatment Exercises Exercises Ankle Pumps,Heel Slides Education Education Provided Safety M7 PT-IP Assessment and Plan Start: 12/06/22 14:32 Freq: NEEDED Status: Active Protocol: Document 12/07/22 15:34 KS (Rec: 12/07/22 16:11 KS [id number]) PT Summary Assessment and Plan Potential Rehabilitation Potential Good Summary Impairments Strength,Balance,Cognition, Transfers,Gait,Activity Tolerance Progress Towards Goals Slow Progress - Other Assessment Summary Pt requires SBA to Min A for bed mobility and Min A for sit <>stand and ambulation w/ FWW. Requires cues for safety and FWW mgmt. R sided weakness R>L . Not appropriate for stair training, but did ambulate 10 ft and perform 5 STS w/ marching in place, 2x LOB w/ Min A recovery. He would benefit from further skilled PT to improve strength and for caregiver training in order to increase safety and independence with mobility to be able to return to their mobile home. Goals Bed Mobility Goal Independent Transfer Goal Standby Assistance,Cane,Front Wheeled Walker Gait Goal Standby Assistance,Cane,Front Wheel Walker Gait Distance 100 Other Goals Patient will be able to ascend /descend 5 steps with single rail with CGA. Days to Meet Goals 5 Frequency of Treatment Frequency Of Treatment Once a Day Treatment Plan Physical Therapy Treatment Plan Bed Mobility Training,Transfer Training,Gait Training, Therapeutic Exercise,Balance Retraining,Discharge Planning, Neuromuscular Re-ed,Manual Therapy Other Recommendations and Next Treatment Progress transfers, gait, and Focus stairs. Caregiver training with spouse. Recommendations To Nursing Amount of Assist Needed 1 Person Assist Discharge Recommendations PT Discharge Recommendations Home with 02/03 Assist Available Transportation Needs at Discharge Private Vehicle,Wheelchair/ Cabulance
[2022-12-07] MEDS: ATORVASTATIN 20 MG TABLET 40 MG PO (20:56)
[2022-12-08 00:15] LABS: Labcorp Hemoglobin (Hb) A1c 5.9 % (4.8-5.6)
[2022-12-08] MEDS: SODIUM CHLORIDE 0.9% 1,000 ML 100 ML IV (03:48)
[2022-12-08 04:25] VITALS: BP 179/98; PULSE 62; RESP 16; O2SAT 96
[2022-12-08 07:00] VITALS: O2SAT 98
[2022-12-08 08:03] VITALS: BP 187/110; PULSE 70; RESP 20; O2SAT 98
[2022-12-08 08:08] VITALS: BP 187/110; PULSE 70
[2022-12-08] MEDS: PHENAZOPYRIDINE 100 MG TABLET PO (08:08)
[2022-12-08] MEDS: METOPROLOL ER 50 MG TABLET PO (08:08)
[2022-12-08] MEDS: CLOPIDOGREL 75 MG TABLET PO (08:08)
[2022-12-08] MEDS: ASPIRIN EC 81 MG TABLET PO (08:08)
[2022-12-08] MEDS: ENOXAPARIN 40 MG/0.4 ML SYRINGE SUBCUT (08:09)
[2022-12-08 09:26] VITALS: PULSE 79
--- NOTE | 2022-12-08 09:45 | PT.IPTN ---
Current Diagnoses Cerebral infarction, unspecified (12/06/22) Physical Therapy Treatment Note M2 PT-IP Current Condition Start: 12/06/22 14:32 Freq: NEEDED Status: Active Protocol: Document 12/06/22 14:32 ES (Rec: 12/06/22 14:56 ES [id number]) Physical Therapy Current Condition Current Condition Evaluation Date 12/06/22 Treatment Diagnosis CVA, ecephalopathy, TERESA, weakness Onset Date 12/05/22 M3 PT-IP Subjective Start: 12/06/22 14:32 Freq: NEEDED Status: Active Protocol: Document 12/08/22 10:37 TS (Rec: 12/08/22 10:56 TS [id number]) Subjective Physical Therapy Visit Type Type Treatment Note Visit Start Time 09:45 Visit Stop Time 10:30 Total Visit Minutes 45 Number of LASTING MACHINE OPERATOR HAND METHOD Visits 2 Physical Therapy Visit Comments Patient Comments Pt found resting in bed, alert and agreeable to do PT. Pt's spouse in room, upset about not having access to bank account to pay bills, pt on phone with [employer]. Patient Goals Spouse wants patient to get well enough to travel in mobile home to move to [place]. M4 PT-IP Mobility and Gait Start: 12/06/22 14:32 Freq: NEEDED Status: Active Protocol: Document 12/08/22 10:37 TS (Rec: 12/08/22 10:56 TS [id number]) PT-Bed Mobility Assessment Supine to Sit Supine to Sit Standby Assistance,Head of Bed Elevated,Bedrails Scooting Scooting to Edge of Bed Standby Assistance PT-Transfer Assessment Sit to and From Stand Sit to and from Stand Standby Assistance,Minimal Assistance,Use of Upper Extremities Equipment Transfer Assistive Device Gait Belt,Front Wheeled Walker Orthotic/Prosthetic Devices or Brace: No Comments Mobility Comments Pt found resting in bed, agreeable to PT session. Supine to sit with HOB elevated 10D SBA with BUE support to upright trunk. Pt scooted to EOB slow SBA with UE support. Pt sat EOB with BUE support, progressed to no UE support with flexed posture . Sit to stand x1 SBA with BUE support on FWW, R hand swollen and has difficulty grapsing FWW. PT ambulated ~15 ' to toilet with ermerging step thru gait SBA with FWW. Sit to stand form toilet Monika due to lower surface, provided cues for BUE support, demosntrates R sided deficit in RLE foot supinating and difficulty grasping RUE on FWW . Pt ambulated in hallway ~250 ' SBA with slow emerging step thru gait, x1 LOB with turning left in FWW. Pt performed stairs x6 SBA/CGA with BUE support, no signs of buckling or LOB, very slow step to step and step over step. Pt was left in bedside chair with call light nearby, chair alarm on. Gait Assessment Gait Gait Assistance Required: Standby Assistance Distance (Feet) 265 Assistive Devices Assistive Device Gait Belt,Front Wheeled Walker Orthotic/Prosthetic Devices or Brace: No Gait Deviations General Gait Pattern Decreased Stride Length, Decreased Feet Clearance,Wide Based Gait Factors Limiting Gait Function Factors Limiting Gait Function Decreased Strength,Poor Balance Comments Gait Comments Pt with x1 LOB turning left in FWW. See mobility comments. Stair Climbing Assessment Evaluation Level of Assist On Stairs Standby Assistance Devices Stair Climbing Assistive Devices Left Railing,Right Railing Technique/Endurance Stair Climbing Direction Ascend and Descend Stair Climbing Technique Step Over Step,Step to Step Number of Steps Climbed 6 Comments Stair Climbing Comments See mobility comments. PT-Balance Assessment Sitting Balance and Reactions Static Sitting Balance Ability Good Dynamic Sitting Balance Ability Fair Standing Balance and Reactions Static Standing Balance Ability Fair Dynamic Standing Balance Ability Fair Device Used FWW M5 PT-IP Objective Assessments Start: 12/06/22 14:32 Freq: NEEDED Status: Active Protocol: Document 12/06/22 14:32 ES (Rec: 12/06/22 14:56 ES [id number]) Orientation Orientation/Cognition Level of Alertness Lethargic Orientation Name,Birthday,Month,Year,Place ,Situation Safety Awareness Understands Safety Issues Memory Description No Deficits Noted Comments Decreased speech volume, difficult to understand. Gross Range of Motion Upper Extremity ROM Assessment Right Impaired Impairments R hand and distal forearm swollen and stiff. R shoulder ROM to 75% of L. Lower Extremity ROM Assessment Right Impaired Impairments Increased stiffness R ankle DF Strength Upper Extremity Strength Assessment Right Impaired Shoulder 4-/5 Elbow 4-/5 Wrist 3+/5 Hand 3-/5 Lower Extremity Strength Assessment Right Impaired Hip 4/5 Knee 4/5 Ankle 4/5 Comments Strength Comments L UE/LE 4+/5 Coordination Assessment Gross Coordination Gross Coordination Impaired Assessment Coordination Comments R side impaired Sensation Assessment Comments Sensation Comments Unable to assess formally; patient not able to understand instructions. Denied numbness /tingling. M6 PT-IP Treatment Start: 12/06/22 14:32 Freq: NEEDED Status: Active Protocol: Document 12/08/22 10:37 TS (Rec: 12/08/22 10:56 TS [id number]) Physical Therapy Treatment Education Education Provided Safety M7 PT-IP Assessment and Plan Start: 12/06/22 14:32 Freq: NEEDED Status: Active Protocol: Document 12/08/22 10:37 TS (Rec: 12/08/22 10:56 TS [id number]) PT Summary Assessment and Plan Potential Rehabilitation Potential Good Status of Condition at Evaluation Evolving Summary Impairments Strength,Balance,Cognition, Transfers,Gait,Activity Tolerance Progress Towards Goals Slow Progress - Other Assessment Summary Pt progressed bed mobility to SBA with HOB elevated 10D. He performed sit to stand x1 from bed SBA w/FWW, sit to stand from w/c and toilet requires Monika due to lower surface. He progressed his ambulation distance to ~265' SBA with x1 LOB turning left in FWW. He performed stairs x6 SBA with step to step and step over step, required BUE handrail assist. PT is recommending return home with 24/7 assist from spouse. Spouse is supportive and has been assisting him at home before admission into hospital. She feels comfortable providing him with any assist he will need. Goals Bed Mobility Goal Independent Transfer Goal Standby Assistance,Cane,Front Wheeled Walker Gait Goal Standby Assistance,Cane,Front Wheel Walker Gait Distance 100 Other Goals Patient will be able to ascend /descend 5 steps with single rail with CGA. Days to Meet Goals 5 Frequency of Treatment Frequency Of Treatment Once a Day Treatment Plan Physical Therapy Treatment Plan Bed Mobility Training,Transfer Training,Gait Training, Therapeutic Exercise,Balance Retraining,Discharge Planning, Neuromuscular Re-ed,Manual Therapy Other Recommendations and Next Treatment Progress transfers, gait, and Focus stairs. Caregiver training with spouse. Recommendations To Nursing Amount of Assist Needed Standby Assistance,1 Person Assist Discharge Recommendations PT Discharge Recommendations Home with 24/7 Assist Available Transportation Needs at Discharge Private Vehicle
--- NOTE | 2022-12-08 12:15 | OT.IP.EVAL ---
Current Diagnoses Cerebral infarction, unspecified (12/06/22) Past Medical History (Last Reviewed 12/06/22 @ 06:30 by Scot Magallanes MD) Alcohol abuse Bipolar 1 disorder Borderline hyperlipidemia Depression Hypertension, essential Tobacco abuse Surgical History (Last Reviewed 12/06/22 @ 06:30 by Scot Magallanes MD) History of mandibular surgery History of tonsillectomy and adenoidectomy Occupational Therapy Inpatient Evaluation/Re-Eval M1 PT/OT-IP Prior Functional Status Start: 12/06/22 14:32 Freq: NEEDED Status: Active Protocol: Document 12/08/22 12:41 CGR (Rec: 12/08/22 13:11 CGR [id number]) Medical Review Prior Functional Status Medical History Reviewed Yes Communication Pt is an effective verbal communicator but is reserved in his speech. Mobility and Gait Varied; could be indep with cane or FWW, other times needed assist with w/c. Spouse stated patient at one time recently was walking 30-50 yards with a cane. Activities of Daily Living and IADL's Varied; spouse assisted with dressing, feeding, though sometimes able to feed self indep. Prior Functional Level (Other details) reported patient has been declining for the past 6 months. Has a hx of R-sided deficits but stated he was able to still do fine motor tasks such as sautering. Social History Household Members spouse Living Arrangements RV Number of Floors (Floors) One Floor Number of Stairs To Enter/Railing? 5 with rail and handle into mobile home Home Equipment Front Wheel Walker,Straight Cane,Manual Wheelchair Additional Social History Comment Patient is currently living in a mobile home with his spouse Darline. Mobile home is parked at the [facility] after being forced to move from their previous location. It is not currently hooked up to water, so they have been using the campground facilities. They are planning to move to [place], [place] to live in a handicap accessible 's apartment there. M2 OT-IP Current Condition Start: 12/08/22 12:41 Freq: Status: Active Protocol: Document 12/08/22 12:41 CGR (Rec: 12/08/22 13:11 CGR [id number]) Occupational Therapy Current Condition Current Condition Evaluation Date 12/08/22 Treatment Diagnosis UTI, meth abuse, acute R parietal CVA, remote L frontal and R parital CVA Diagnosis Onset Date 12/06/22 M3 OT- IP Subjective and Pain Start: 12/08/22 12:41 Freq: Status: Active Protocol: Document 12/08/22 12:41 CGR (Rec: 12/08/22 13:11 CGR [id number]) OT- Subjective Occupational Therapy Visit Type Type Initial Evaluation Visit Start Time 11:51 Visit Stop Time 12:15 Total Visit Minutes [address] entered room at end of OT session. OT Pain Assessment Pain When Pain Assessed At Rest Pain Present Pain Present Denied Pain M4 OT- IP ADL's Start: 12/08/22 12:41 Freq: Status: Active Protocol: Document 12/08/22 12:41 CGR (Rec: 12/08/22 13:11 CGR [id number]) OT [id number] Comments OT Self-Feeding Comments Lunch was delivered when OT present but pt participating with ST at end of session. OT ADL-Grooming General Evaluation Grooming Ability Standby Assistance Areas Needing Assistance Face Washing Comments OT Grooming Comments with set up for washing face. OT ADL-Oral Care Comments Oral Care Comments not performed, pt declined to perform OT ADL-Dressing General Eval Upper Body Dressing Ability Moderate Assistance Lower Body Dressing Ability Minimal Assistance Comments OT Dressing Comments min a for doffing socks. Mod assist with [facility] gown. OT ADL-Toileting General Evaluation Toileting Ability Standby Assistance Comments OT Toileting Comments Pt states need to urinate upon standing and was unable to hold his urine fully. Pt finished urinating seated on toielt. Pt passed gas but no BM seated on toielt. OT ADL-Bathing Bathing Type Bathing Type Sponge Bath General Evaluation Bathing Ability Maximal Assistance Areas Needing Assistance Retrieving/Setting Up Items Comments OT Bathing Comments Pt washed his face only. Pt needed assist with washing his upper body and lower body. Of note, BM on deana pad on chair and unable to fully clean BM off rectum with standing cleaning. Notified nursing. M5 OT- IP IADL's Start: 12/08/22 12:41 Freq: Status: Active Protocol: Document 12/08/22 12:41 CGR (Rec: 12/08/22 13:11 CGR [id number]) OT-Instrumental Activities of Daily Living Deficits IADL Deficits Identified Deficits Home Safety Awareness Awareness of Need for Assistance at Home Decreased Awareness Ability to Problem Solve Emergency Unable to Problem Solve Situations Medication Management Medication Management Comments Unlikely that pt is consistently taking any prescribed medications. Money Management Money Management Caregiver Provides Assistance Meal Preparation Meal Preparation Caregiver Provides Assist Gas Pumping Station Operator Gas Pumping Station Operator Caregiver Provides Assist Driving Driving Comments Pt does not drive. M6 OT- IP Functional Cognition Start: 12/08/22 12:41 Freq: Status: Active Protocol: Document 12/08/22 12:41 CGR (Rec: 12/08/22 13:11 CGR [id number]) Cognitive Factors Limiting Selfcare Function Cognitive Ability Level of Alertness Alert,Confusional State Patient Orientation Name Attention Span Ability Capable of Focused Attention, Capable of Sustained Attention Ability to Follow Commands Able to Follow One Step Commands with Increased Time, Able to Follow One Step Commands with Repetition Cognitive Comments Cognitive Assessment Comments Pt presents with flat affect and delayed responses. Pt would benefit from formal cog assessment. OT- Vision and Hearing OT- Hearing Assessment OT- Hearing Assessment WFL OT- Vision Assessment Visual Attentiveness WFL Occular Pursuits WFL Visual Convergence WFL Visual Herr WFL Vision Assessment Comments No glasses noted M7 OT- IP Mobility and Balance Start: 12/08/22 12:41 Freq: Status: Active Protocol: Document 12/08/22 12:41 CGR (Rec: 12/08/22 13:11 CGR [id number]) OT-Transfer Assessment Sit to and From Stand Sit to and from Stand Minimal Assistance Transfers Transfer Ability Minimal Assistance,Moderate Assistance Technique Transfer Destination Chair,Toilet Transfer Technique Stand Step Pivot Devices Transfer Assistive Devices Gait Belt,Front Wheeled Walker Comments Mobility Comments Pt stood for ADLs at sink but immediately stated need for toilet. Pt ambulated to the toielt and needs verbal cues for hand placement on grab bar before sitting. Pt urinated and passed gas seated on toilet then ambulated to sink for ADLs. Pt needed assist for ADLs but was able to stand for sponge bath. OT- Balance Assessment Sitting Balance and Reactions Static Sitting Balance Ability Good Dynamic Sitting Balance Ability Fair M8 OT- IP Objective Assessments Start: 12/08/22 12:41 Freq: Status: Active Protocol: Document 12/08/22 12:41 CGR (Rec: 12/08/22 13:11 CGR [id number]) OT Gross Range of Motion Upper Extremity Range of Motion Assessment Within Functional Limits ROM Impairments delayed ROM to the RUE noted pain to the R hand with finger extension and wrist extension. OT Strength Upper Extremity Strength Assessment Right Impaired Comments Strength Comments LUE grossly 4/5 R shld 3+/5, R arm 4-/5, R hand 3-/5 OT- Coordination Assessment Upper Extremity Finger to Nose Test Right UE Impaired Finger Tapping Test Right UE Impaired Comments Coordination Comments Pt was unable to perform RUE coordination. OT-Muscle Tone Assessment Comments Muscle Tone Comments muscle tone appear normal but testing not performed d/t pain in the area. OT Sensation Assessment Edema Edema Present Edema Comments R hand with moderate edema and redness. M9 OT- IP Assessment and Plan Start: 12/08/22 12:41 Freq: Status: Active Protocol: Document 12/08/22 12:41 CGR (Rec: 12/08/22 13:11 CGR [id number]) OT Summary Assessment and Plan Potential Rehabilitation Potential Good Analytic Complexity at Evaluation High Summary OT Impairments Pain,Range of Motion,Strength, Balance,Coordination, Functional Cognition, Functional Mobility,Grooming, Dressing,Toileting,Bathing, Toilet Transfers,Shower Transfers,Activity Tolerance Progress Towards Goals Slow Progress due to Pain,Slow Progress due to Medical Issues,Slow Progress due to Activity Tolerance,Slow Progress due to Cognition Assessment Summary Pt presents as a high complexity evaluation s/p admit for AMS. Pt found to have UTI, acute R parietal CVA , and remote L frontal and R parietal CVA. Pt ambulated with min a using the walker but is impulsive and needs VC for hand placement for safe transfers. Pt is not using his R hand during ADL tasks but is able to move it when asked. Pt with swelling and redness to the right hand that he states isn't painful except with PROM extension to the fingers and wrist. Pt presents with a flat affect and is agreeable to activity but needs prompts to initiate activity. Pt would benefit from acute rehab. In discussion with the transplant case manager, it is possible that the [facility] re[facility] would take the pt but otherwise SNF and rehab facilities are unlikely to admit d/t active drug use. Recommendation is for d/c to [place] acute rehab. Concerns regarding pt's family being able to appropriately care for pt in home setting. Goals Self-Feeding Goal Independent Grooming Goal Independent Dressing Goal Independent Toileting Goal Independent Bathing Goal Independent Toilet Transfer Goal Independent Shower Transfer Goal Independent Days to Meet Goals 25 Frequency of Treatment Frequency Of Treatment Once a Day Treatment Plan OT Treatment Plan ADL Training,Functional Cognition Training,Functional Mobility,Patient/Family Education,Discharge Planning Other Treatment Recommendations and Next shower, formal cog assessment Treatment Focus Discharge Recommendations OT Discharge Recommendations Acute Rehab Transportation Needs at Discharge Private Vehicle
--- NOTE | 2022-12-08 12:33 | PM.DS.1 ---
History of Present Illness History of Present Illness Date Patient Seen: 12/08/22 Time Patient Seen: 12:33 Chief complaint: UTI/eye seeping/rt leg numb Narrative: Per admitting provider, Mr. Villalobos is a 67M with bipolar, TIA, meth abuse who presents to the hospital with multiple symptoms. Patient is lethargic and can not provide history. provided history to ED physician but had left by the time I have seen the patient. Resportedly he is an active meth abuser, remote alcohol abuse. He has been having chronic decline for months and apparently brought him in to the hospital because they are moving out of state. He has had difficulty moving his right leg, which is definitely chronic but worse than usual possibly. He also is sleepy, lethargic and difficulty to arouse. In the ED workup was done, vitals notable for afebrile, heart rate in the 80s, respiratory 20s, blood pressure 120s/60s, 98% on room air. Labs reviewed by me and notable for WBC 11.4, hgb 15.3, plts 241. Na 137, creatinine 1.51. Ammonia 20. Ua with keuk esterase, wbcs, bacteria. Urine drug screen positive for meth. CT head reviewed by me and notable for moderate subacute or chronic infarcts. He was ordered for antibiotics and aspirin and admitted for further treatment. Discharge Providers Provider Date of admission: 12/06/22 04:15 Discharge Date: 12/08/22 Consults: 12/06/22 05:18 Consult to Discharge Planning Routine Comment: Consult to Occupational Therapy Evaluate & Treat Comment: Physician Instructions: Evaluate and treat Consult to Physical Therapy Evaluate & Treat Comment: Physician Instructions: Evaluate and Treat Consult to Speech Therapy Evaluate & Treat Comment: Physician Instructions: Evaluate and treat Discharge provider: Pardeep Kulkarni DO Summary Hospital Course Discharge Diagnosis: 1. CVA, acute + chronic 2. Acute encephalopathy 3. TERESA, resolved 4. UTI ruled out 5. Hypertension 6. Meth abuse 7. Right UE swelling Hospital Course: 67 M with PMH of meth abuse, HTN admitted to the hospital initially with acute encephalopathy and weakness. He also had RUE swelling though ultrasound was negative for DVT an no obvious etiology was found, but may have been due to trauma given presentation. Initial infectious workup revealed a possible UTI, cultures had multiple urinary kvng and was deemed unsuitable for culture. He was given augmentin on discharge for possible, though less likely, UTI given presentation. He also had a mild TERESA which was more likely due to mild hypovolemic given what was seen on MRI. He was found to have an an acute CVA on the Rt parietal area, along with encephalomalacia on the left frontal and rt parietal area consistent with previous remote CVA. CT angio showed an occluded left ICA, and follow up with vascular surgery is recommended as an outpatient for consideration of CEA. Echocardiogram showed an EF of 50-55% without PFO. Telemetery montioring was unreamarkable and patient was started on asa, plavix and statin (had been on these previously). No new neurological symptoms developed over his admission, and he did well with physical and occupational therapies and was recommended for discharge home. Time Spent with Patient Time spent: Greater than 30 minutes Exam Vital Signs (past 8 hours): - 12/08/22 08:03 12/08/22 08:08 12/08/22 07:00 Pulse Rate 70 70 Respiratory Rate 20 Blood Pressure 187/110 H 187/110 H Pulse Oximetry 98 98 Oxygen Delivery Method Room Air Oxygen Flow Rate 0 0 12/08/22 09:26 Pulse Rate 79 Respiratory Rate Blood Pressure Pulse Oximetry Oxygen Delivery Method Oxygen Flow Rate Oxygen Delivery Method Room Air Oxygen Flow Rate 0 Narrative Exam Narrative: GEN: poor hygiene, chronically ill appearing, awake and alert answering questions appropriately HEENT: MMM, PERRL CV: regular rate and rhythm, no murmurs PULM: clear bilaterally, no wheezes, rhonchi, rales ABD: soft, nontender, nondistended, no organomegaly EXT: warm and well perfused, right hand swelling NEURO: slight dysarthria but comprehensible and alert and oriented. Strength is +5/5 in all extremities, R is weaker than L. Objective Labs 12/07/22 09:00 12/07/22 09:00 Labs: Laboratory Results - last 24 hr 12/05/22 18:45 Hgb A1c (Ref Lab) 5.9 H [facility] Medical History Alcohol abuse Bipolar 1 disorder Borderline hyperlipidemia Depression Hypertension, essential Tobacco abuse Surgical History History of mandibular surgery History of tonsillectomy and adenoidectomy Family History Father Sandborn's disease Grandfather Johnie's disease Brother Sandborn's disease Social History household members: spouse Smoking Status: Current every day smoker alcohol intake: current Discharge Plan Discharge Plan Patient Disposition: Home Provider Discharge Comment: You were admitted to the hospital, found to have a new stroke that happened in the last few days to few weeks (timing not entirely clear). You may have had a UTI as well, culture had many different bacteria though to be contaminant, but will keep you on antibiotics for a week given painful urination. No changes to aspirin and plavix are needed,. Your BP was variable here, continue to check BP at home and write these down to review with your PCP to see about maybe adding another BP medication. For now, recommend follow up with PCP ideally this week. Discharge orders & Medications Prescriptions: New atorvastatin 40 mg tablet 40 mg PO BEDTIME 90 Days Qty: 90 0RF phenazopyridine 100 mg Tablet 100 mg PO TID 2 Days Qty: 6 0RF amoxicillin-pot clavulanate 875-125 mg tablet 1 tab PO BID 7 Days Qty: 14 0RF Continued clopidogrel 75 mg Tablet 75 mg PO DAILY Qty: 30 0RF aspirin 81 mg tablet,delayed release (DR/EC) 81 mg PO DAILY Qty: 30 0RF metoprolol succinate 50 mg tablet extended release 24 hr 50 mg PO DAILY Qty: 30 0RF Discharge Health Status Multidrug resistant organism: No MDRO Diet/Activity/Treatments Diet: Diet as Tolerated Activity: As tolerated Visit Report/Discharge Packet Stand Alone Forms: Patient Portal/API, Stroke Signs & Symptoms Discharges patient from system. Discharge Date/Time: 12/08/22 16:54
--- NOTE | 2022-12-08 13:12 | CM.DPNOTE ---
DCP Discharge Per MD, pt is medically stable to d/c to lower level of care today. Per OT, would recommend Inpt Rehab ultimately and SW discussed barriers to SNF or Stroke Rehab being insurance and also UDS+ for meth and amphetamines SW called [facility] and they confirm pt's UDS+ is not an immediate r/o but due to his poor d/c plan and active use then they could review but likely could not accept but also they cannot accept pt[facility] unless [facility] then maybe. SW called [facility] [phone] and left msg regarding pt situation and requested call back parker. SW met bedside with pt and explained role and spouse had stepped out but plans to be back in a short bit and SW discussed recommendation of SNF or Acute Inpt Rehab. Pt states they plan to move in a few days to their supportive son's location in [place] and pt strongly declines any rehab including HH as he does not feel they will be here long enough to benefit from rehab. Pt agreeable with MANUEL talking with his spouse too when she comes back. MANUEL updated RN, OT, and MD. Plan: SW to follow for likely d/c home with spouse to their with plan of move to [place] in a few days and pt currently declining SNF, Inpt Rehab, HH. JOSE Brown
--- NOTE | 2022-12-08 14:55 | ST.IPDYTX ---
Visit Care Team Role Provider Type Iris Marshall DO Emergency Provider Physician Referring Provider Specialty: Emergency Medicine Address: [address] [place] [address], [id number] Email: [email or web address] Scot Magallanes MD Admit Provider Physician Attending Provider Specialty: Hospitalist Address: [address] [place] [address], [id number] Fax: Email: [email or web address] SPA SUPERVISOR Dysphagia Treatment SPA SUPERVISOR Clinical Instructor Line Start: 12/08/22 14:33 Freq: Status: Active Protocol: Document 12/08/22 14:40 BE (Rec: 12/08/22 14:55 BE [id number]) Clinical Instructor Signature Clinical Instructor Clinical Instructor Yes SPA SUPERVISOR Dysphagia Treatment Start: 12/08/22 14:40 Freq: Status: Active Protocol: Document 12/08/22 14:40 BE (Rec: 12/08/22 14:55 BE [id number]) Dysphagia Treatment Session Time Visit Start Time 12:00 Visit Stop Time 12:19 Total Visit Minutes 19 Setting Assessment Location Acute Care Visit Type Note Type Treatment Note Next Note Type Next Note Type Re-Evaluation Patient Information Identification Type Name,ID Card Subjective Observations Patient was awake and wrapping up with OT when SPA SUPERVISOR arrived. OT positioned patient upright in chair and lunch was provided. Lunch included grilled cheese and turkey sandwhich, tomato soup, and iced tea. Treatment Liquids Trialed Thin Solids Trialed Puree,Regular Administration Type Tea Spoon,Straw,Self-Feeding Oral Strategies Upright at 90 degrees Pharyngeal Strategies Sitting Upright (90 deg) Treatment Activities Observed patient while he ate his noon meal of grilled cheese and turkey sandwhich and soup with tea for a drink. He took 3 spoonfuls of soup, 2 bites of sandwhich, and 1 drink of tea. Assessment Patient Response to Treatment Good Assessment of Improvement Pt exhibited prolonged mastication time. He needed to reposition food in his mouth due to missing dentition. Pt managed regular textures and thin liquids with no overt signs of aspiration/ penetration. He is currently managing least restrictive diet, and no longer needs swallow therapy. Communication was limited, including short responses and reduced volume. OT reported pt had difficulty responding to questions. Recommend assessment of communication for the purposes of effective communication of wants and needs and participation in medical decision making. Diet Recommendations Recommendations Continue Current Diet Liquids Order Thin Diet Order Regular Medication Recommendations As Tolerated Aspiration Precautions Recommended Precautions Upright at 90 Degrees,Small Bites/Sips Treatment Plan Placement Recommendation after Discharge [facility] Facility Appropriate for Continued Therapy Yes Therapy Recommendations Recommend communication evaluation. Dysphagia Goals 1. Pt will safely tolerate least restrictive diet to meet his nutrition and hydration needs.
[2022-12-08 15:58] VITALS: BP 130/77; PULSE 69; RESP 20; TEMP 36.4; O2SAT 98
== END 2022-12-08 16:54 | disposition home or self-care (01) | DRG 65 ==
LOC: ED 12-06 04:15 → AC 12-06 11:26
PROVIDERS: Emergency Medicine; Admitting Provider Internal Medicine; Emergency Provider Emergency Medicine; Referring Provider Emergency Medicine; Visit Provider Internal Medicine
DX: I63.232 Cerebral infarction due to unspecified occlusion or stenosis of left carotid arteries (principal); G93.40 Encephalopathy, unspecified; N17.9 Acute kidney failure, unspecified; M79.89 Other specified soft tissue disorders; E78.5 Hyperlipidemia, unspecified; R29.712 NIHSS score 12; R29.703 NIHSS score 3; F17.200 Nicotine dependence, unspecified, uncomplicated; Z20.822 Contact with and (suspected) exposure to COVID-19
CPT/HCPCS: 36415; 70450; 70496; 70498; 70551; 71045; 80048; 80053; 80061; 80305; 80320; 81001; 81003; 82140; 83036; 85025; 87086; 87635; 92526; 92610; 93306; 93971; 96365; 97116; 97163; 97167; 97530; 97535; 99284; 99285; C9803; J0696; J1650; Q9967

== ENCOUNTER 2023-01-02 21:28 | Emergency (ER) | payer OTHER, SELFPAY ==
[2022-12-06 04:58] VITALS: BMI 19.3
[2023-01-02] VITALS (7 sets, daily range): BP systolic 153–186; BP diastolic 84–91; PULSE 61–69; RESP 18; TEMP 36.4; O2SAT 99–100; BMI 19.3
--- NOTE | 2023-01-02 21:41 | ED.GENADULT ---
HPI - General Adult <Vaibhav Jackson DO - Last Filed: 01/03/23 23:53> General Chief complaint: Extremity Injury, Lower Stated complaint: Right Toes curling Time Seen by Provider: 01/02/23 21:29 Source: patient and EMS Mode of arrival: EMS Limitations: no limitations History of Present Illness HPI narrative: Patient is a 67-year-old male who was brought to the emergency department for evaluation of was initially describes as his right toes curling up on his foot. Upon further discussion with the initial description actually was was a right-sided foot drop. Is somewhat difficult to obtain an exact HPI from the patient. He has had a stroke in the past which causes him to have some speech difficulties. Initially unsure whether or not the stroke happened 2 weeks ago were 2 months ago or potentially even further back from that. Apparently the issues that he has been having with his right foot has been going on for at least the past couple days. Patient states he was having difficulty getting around the RV where he lives so EMS was contacted bringing him here to the emergency department. He is not tried anything for symptoms prior to arrival. He reports no other new neurologic symptoms. No chest pain. No shortness of breath. No headache. No left-sided weakness. S of swelling to his right hand but this is not new. Related Data Previous Rx's Medication Instructions Recorded aspirin 81 mg tablet,delayed 81 mg PO DAILY #30 tabs 07/30/20 release clopidogrel 75 mg tablet 75 mg PO DAILY #30 tabs 07/30/20 metoprolol succinate 50 mg 50 mg PO DAILY #30 tabs 07/30/20 tablet,extended release 24 hr atorvastatin 40 mg tablet 40 mg PO BEDTIME 90 days #90 tabs 12/08/22 Allergies Allergy/AdvReac Type Severity Reaction Status Date / Time ALEX Inhibitors Allergy Severe Anaphylaxis Verified 12/06/22 08:19 Review of Systems <Vaibhav Jackson DO - Last Filed: 01/03/23 23:53> Review of Systems ROS Unobtainable: All systems reviewed & are unremarkable except as noted in HPI and below Patient History <Vaibhav Jackson DO - Last Filed: 01/03/23 23:53> Medical History Alcohol abuse Bipolar 1 disorder Borderline hyperlipidemia Depression Hypertension, essential Tobacco abuse Surgical History History of mandibular surgery History of tonsillectomy and adenoidectomy Family History Father Yadkin's disease Grandfather Yadkin's disease Brother Yadkin's disease Social History household members: none Smoking Status: Current every day smoker alcohol intake: current Smoking Status: Current every day smoker alcohol intake frequency: 0-2 drinks per day Substance Use Type: does not use Exam <Vaibhav Jackson DO - Last Filed: 01/03/23 23:53> Initial Vital Signs Initial Vital Signs: Vital Signs Pulse Rate 69 01/02/23 21:31 Blood Pressure 180/84 H 01/02/23 21:31 Pulse Oximetry 99 01/02/23 21:31 Const General: cooperative and disheveled HENMT Head: normal to inspection and normocephalic Eyes General: Yes appearance normal, both eyes and all related structures Resp Effort & Inspection: normal respiratory effort Auscultation: clear to auscultation bilaterally Cardio Rate: regular rate Rhythm: regular rhythm GI Inspection: normal to inspection and non-distended Skin Other: Redness to the right hand that is not cellulitic in appearance. He is a superficial abrasion to his right anterior max. Neuro Other: Patient is very soft-spoken and is slurring some of his words. He is 5/5 strength in his left upper extremity left lower extremity. The patient has quite a bit of difficulty raising his right leg up off the bed. He can not flex and extend at the right ankle. He is difficulty bending his right knee. He also has weakness to his right upper extremity. He can flex and extend his elbow but it is limited. Extrem Other: Swelling to his right hand. <Ildefonso Oliveira DO - Last Filed: 01/04/23 06:58> Initial Vital Signs Initial Vital Signs: Vital Signs Pulse Rate 69 01/02/23 21:31 Blood Pressure 180/84 H 01/02/23 21:31 Pulse Oximetry 99 01/02/23 21:31 Course <DO Kaci Anna Last Filed: 01/03/23 23:53> Orders Ordered: Discontinued Medications Atorvastatin Calcium (Atorvastatin 20 Mg Tablet) 40 mg PO NOW ONE Stop: 01/03/23 10:44 Last Admin: 01/03/23 10:52 Dose: 40 mg Documented By: RB Cephalexin HCl (Cephalexin 250 Mg Capsule) 500 mg PO NOW ONE Stop: 01/03/23 07:10 Last Admin: 01/03/23 07:24 Dose: 500 mg Documented By: RB Clopidogrel Bisulfate (Clopidogrel 75 Mg Tablet) 75 mg PO NOW ONE Stop: 01/03/23 10:44 Last Admin: 01/03/23 10:52 Dose: 75 mg Documented By: RB Metoprolol Succinate (Metoprolol Er 50 Mg Tablet) 50 mg PO NOW ONE Stop: 01/03/23 00:35 Last Admin: 01/03/23 00:44 Dose: 50 mg Documented By: SB Vital Signs Vital signs: Vital Signs - 8 hr 01/03/23 16:00 01/03/23 16:00 01/03/23 16:30 Pulse Rate 53 L Blood Pressure 171/86 H 194/91 H Pulse Oximetry 97 01/03/23 16:30 Pulse Rate 52 L Blood Pressure Pulse Oximetry 99 <Ildefonso Oliveira DO - Last Filed: 01/04/23 06:58> Orders Ordered: Discontinued Medications Atorvastatin Calcium (Atorvastatin 20 Mg Tablet) 40 mg PO NOW ONE Stop: 01/03/23 10:44 Last Admin: 01/03/23 10:52 Dose: 40 mg Documented By: RB Cephalexin HCl (Cephalexin 250 Mg Capsule) 500 mg PO NOW ONE Stop: 01/03/23 07:10 Last Admin: 01/03/23 07:24 Dose: 500 mg Documented By: RB Clopidogrel Bisulfate (Clopidogrel 75 Mg Tablet) 75 mg PO NOW ONE Stop: 01/03/23 10:44 Last Admin: 01/03/23 10:52 Dose: 75 mg Documented By: RB Metoprolol Succinate (Metoprolol Er 50 Mg Tablet) 50 mg PO NOW ONE Stop: 01/03/23 00:35 Last Admin: 01/03/23 00:44 Dose: 50 mg Documented By: SB Vital Signs Vital signs: Vital Signs - 8 hr 01/03/23 16:00 01/03/23 16:00 01/03/23 16:30 Pulse Rate 53 L Blood Pressure 171/86 H 194/91 H Pulse Oximetry 97 01/03/23 16:30 Pulse Rate 52 L Blood Pressure Pulse Oximetry 99 Medical Decision Making <Vaibhav Jackson, DO - Last Filed: 01/03/23 23:53> Medical Records Medical records reviewed: Yes I reviewed the patient's medical records. Lab Data Lab results reviewed: Yes I reviewed the patient's lab results. 01/02/23 22:50 01/02/23 22:50 Labs: Lab Results 01/02/23 01/02/23 01/02/23 Range/Units 22:05 22:05 22:50 WBC 7.1 (4.5-11.0) X10^3/uL RBC 4.82 (4.5-5.9) X10^6/uL Hgb 13.6 (13.5-17.5) g/dL Hct 40.3 L (41-53) % MCV 83.6 (80-100) fL MCH 28.3 (26-34) PG MCHC 33.9 (30-36) % RDW 14.1 (11.6-14.8) % Plt Count 191 (150-400) X10^3/uL Neut % (Auto) 59.5 (50-75) % Lymph % (Auto) 23.1 L (25-40) % [place] % (Auto) 14.5 H (3-14) % Eos % (Auto) 1.9 L (2-4) % Baso % (Auto) 1.0 (0-2) % Neut # (Auto) 4300 (8388-5814) /uL Lymph # (Auto) 1600 (8794-0224) /uL [place] # (Auto) 1000 H (0-900) /uL Eos # (Auto) 100 (0-450) /uL Baso # (Auto) 100 (0-100) /uL Sodium (137-145) mmol/L Potassium (3.4-5.1) mmol/L Chloride (98-107) mmol/L Carbon Dioxide (22-32) mmol/L BUN (9-20) mg/dL Creatinine (0.66-1.25) mg/dL Estimated GFR (>60) mL/min BUN/Creatinine Ratio (6-22) Glucose (80-110) mg/dL Calcium (8.4-10.2) mg/dL Total Bilirubin (0.2-1.3) mg/dL AST (17-59) IU/L ALT (<50) IU/L Alkaline Phosphatase (38-126) U/L Total Protein (6.3-8.2) g/dL Albumin (3.5-5.0) g/dL Globulin (1.7-4.1) g/dL Albumin/Globulin Ratio (1.0-2.8) Lipase (23-300) U/L Urine RBC 0-1/hpf (0-5/HPF) Urine WBC 30-100/hpf H (0-5/HPF) Ur Squamous Epith Cells 0-1 /hpf (0-5/HPF) Urine Bacteria Few (2-10) H (None) Hyaline Casts 1-5/lpf (None) Urine Mucus 1+ H (Negative) Ur Culture Indicated? Specimen cultured U Opiates 300ng/mL cut Negative (Negative) Ur Oxycodone Screen Negative (Negative) Urine Methadone Screen Negative (Negative) Ur Barbiturates Screen Negative (Negative) U Tricyclic Antidepress Negative (Negative) Ur Phencyclidine Scrn Negative (Negative) Ur Amphetamines Screen Negative (Negative) U Methamphetamines Scrn Positive H (Negative) Ur MDMA Scrn (Ecstasy) Negative (Negative) U Benzodiazepines Scrn Negative (Negative) Urine Cocaine Screen Negative (Negative) U Marijuana (THC) Screen Negative (Negative) Ethyl Alcohol ( - 10) mg/dL 01/02/23 Range/Units 22:50 WBC (4.5-11.0) X10^3/uL RBC (4.5-5.9) X10^6/uL Hgb (13.5-17.5) g/dL Hct (41-53) % MCV (80-100) fL MCH (26-34) PG MCHC (30-36) % RDW (11.6-14.8) % Plt Count (150-400) X10^3/uL Neut % (Auto) (50-75) % Lymph % (Auto) (25-40) % [place] % (Auto) (3-14) % Eos % (Auto) (2-4) % Baso % (Auto) (0-2) % Neut # (Auto) (1440-3879) /uL Lymph # (Auto) (6256-6751) /uL [place] # (Auto) (0-900) /uL Eos # (Auto) (0-450) /uL Baso # (Auto) (0-100) /uL Sodium 140 (137-145) mmol/L Potassium 4.4 (3.4-5.1) mmol/L Chloride 108 H (98-107) mmol/L Carbon Dioxide 25 (22-32) mmol/L BUN 28 H (9-20) mg/dL Creatinine 0.93 (0.66-1.25) mg/dL Estimated GFR > 60 (>60) mL/min BUN/Creatinine Ratio 30.1 H (6-22) Glucose 67 L (80-110) mg/dL Calcium 8.6 (8.4-10.2) mg/dL Total Bilirubin 0.3 (0.2-1.3) mg/dL AST 73 H (17-59) IU/L ALT 87 H (<50) IU/L Alkaline Phosphatase 104 (38-126) U/L Total Protein 7.4 (6.3-8.2) g/dL Albumin 3.5 (3.5-5.0) g/dL Globulin 3.9 (1.7-4.1) g/dL Albumin/Globulin Ratio 0.9 L (1.0-2.8) Lipase 188 (23-300) U/L Urine RBC (0-5/HPF) Urine WBC (0-5/HPF) Ur Squamous Epith Cells (0-5/HPF) Urine Bacteria (None) Hyaline Casts (None) Urine Mucus (Negative) Ur Culture Indicated? U Opiates 300ng/mL cut (Negative) Ur Oxycodone Screen (Negative) Urine Methadone Screen (Negative) Ur Barbiturates Screen (Negative) U Tricyclic Antidepress (Negative) Ur Phencyclidine Scrn (Negative) Ur Amphetamines Screen (Negative) U Methamphetamines Scrn (Negative) Ur MDMA Scrn (Ecstasy) (Negative) U Benzodiazepines Scrn (Negative) Urine Cocaine Screen (Negative) U Marijuana (THC) Screen (Negative) Ethyl Alcohol < 10 ( - 10) mg/dL Urine Dip Bedside Urine Glucose Negative Bedside Urine Bilirubin - Negative Bedside Urine Ketone - Negative Urine Specific [place] 1.020 Bedside Urine Occult Blood ++ Bedside Urine pH 6.0 Bedside Urine Protein +/- 15 Bedside Urine Urobilinogen - Negative Bedside Urine Nitrite - Negative Bedside Urine Leukocytes +++ 500 Esterase Point of care testing: Urine Dip Bedside Urine Glucose Negative Bedside Urine Bilirubin - Negative Bedside Urine Ketone - Negative Urine Specific [place] 1.020 Bedside Urine Occult Blood ++ Bedside Urine pH 6.0 Bedside Urine Protein +/- 15 Bedside Urine Urobilinogen - Negative Bedside Urine Nitrite - Negative Bedside Urine Leukocytes +++ 500 Esterase MDM Narrative Medical decision making narrative: Review of the patient's medical record shows that approximately 2 months ago he was admitted to the hospital for what seems to be very similar symptoms to what he presents with today. According to the note that time he was admitted for urinary tract infection but upon further workup during that admission he had an MRI which showed an acute versus subacute stroke. The emergency department note mentioned that he was having swelling to his right hand so this finding today is not new. It also makes note that he does occasionally have weakness to his right lower extremity so I question whether or not the issues he is having with his right leg today are new as well. He is positive for methamphetamine in his urine and review his medical record shows that he is an active methamphetamine user. Does have a distant history of alcohol use. Patient is wearing a brief and does seem to be at least partially incontinent of urine. His urinalysis today does show bacteria and white blood cells although he does not endorse any specific dysuria. If there are any new neurologic symptoms today (which does not seem that there are given what he describes as his symptoms and the review of his medical record) they have least been going on for the past 2 days. Patient not a candidate for tPA. Do some suspicion that potentially his presenting symptoms are related to his methamphetamine abuse as when he was here in the hospital 2 months ago he was seen by Physical therapy and Occupational therapy and deemed okay to be discharged home. Did discuss the case with RAFAEL Larson the night hospitalist who stated that given his presentation this morning there was not a specific indication for admission to the hospital in the recommendation was to observe overnight to see whether or not he metabolizes any potential methamphetamine and potentially his symptoms improve and he is able to ambulate. A social work consult was placed. Physical therapy consult placed. Care turned over to day provider to observe until disposition. <Ildefonso Oliveira DO - Last Filed: 01/04/23 06:58> Lab Data Labs: Lab Results 01/02/23 01/02/23 01/02/23 Range/Units 22:05 22:05 22:50 WBC 7.1 (4.5-11.0) X10^3/uL RBC 4.82 (4.5-5.9) X10^6/uL Hgb 13.6 (13.5-17.5) g/dL Hct 40.3 L (41-53) % MCV 83.6 (80-100) fL MCH 28.3 (26-34) PG MCHC 33.9 (30-36) % RDW 14.1 (11.6-14.8) % Plt Count 191 (150-400) X10^3/uL Neut % (Auto) 59.5 (50-75) % Lymph % (Auto) 23.1 L (25-40) % [place] % (Auto) 14.5 H (3-14) % Eos % (Auto) 1.9 L (2-4) % Baso % (Auto) 1.0 (0-2) % Neut # (Auto) 4300 (9092-4404) /uL Lymph # (Auto) 1600 (5139-8418) /uL [place] # (Auto) 1000 H (0-900) /uL Eos # (Auto) 100 (0-450) /uL Baso # (Auto) 100 (0-100) /uL Sodium (137-145) mmol/L Potassium (3.4-5.1) mmol/L Chloride (98-107) mmol/L Carbon Dioxide (22-32) mmol/L BUN (9-20) mg/dL Creatinine (0.66-1.25) mg/dL Estimated GFR (>60) mL/min BUN/Creatinine Ratio (6-22) Glucose (80-110) mg/dL Calcium (8.4-10.2) mg/dL Total Bilirubin (0.2-1.3) mg/dL AST (17-59) IU/L ALT (<50) IU/L Alkaline Phosphatase (38-126) U/L Total Protein (6.3-8.2) g/dL Albumin (3.5-5.0) g/dL Globulin (1.7-4.1) g/dL Albumin/Globulin Ratio (1.0-2.8) Lipase (23-300) U/L Urine RBC 0-1/hpf (0-5/HPF) Urine WBC 30-100/hpf H (0-5/HPF) Ur Squamous Epith Cells 0-1 /hpf (0-5/HPF) Urine Bacteria Few (2-10) H (None) Hyaline Casts 1-5/lpf (None) Urine Mucus 1+ H (Negative) Ur Culture Indicated? Specimen cultured U Opiates 300ng/mL cut Negative (Negative) Ur Oxycodone Screen Negative (Negative) Urine Methadone Screen Negative (Negative) Ur Barbiturates Screen Negative (Negative) U Tricyclic Antidepress Negative (Negative) Ur Phencyclidine Scrn Negative (Negative) Ur Amphetamines Screen Negative (Negative) U Methamphetamines Scrn Positive H (Negative) Ur MDMA Scrn (Ecstasy) Negative (Negative) U Benzodiazepines Scrn Negative (Negative) Urine Cocaine Screen Negative (Negative) U Marijuana (THC) Screen Negative (Negative) Ethyl Alcohol ( - 10) mg/dL 01/02/23 Range/Units 22:50 WBC (4.5-11.0) X10^3/uL RBC (4.5-5.9) X10^6/uL Hgb (13.5-17.5) g/dL Hct (41-53) % MCV (80-100) fL MCH (26-34) PG MCHC (30-36) % RDW (11.6-14.8) % Plt Count (150-400) X10^3/uL Neut % (Auto) (50-75) % Lymph % (Auto) (25-40) % [place] % (Auto) (3-14) % Eos % (Auto) (2-4) % Baso % (Auto) (0-2) % Neut # (Auto) (6818-9527) /uL Lymph # (Auto) (0044-7460) /uL [place] # (Auto) (0-900) /uL Eos # (Auto) (0-450) /uL Baso # (Auto) (0-100) /uL Sodium 140 (137-145) mmol/L Potassium 4.4 (3.4-5.1) mmol/L Chloride 108 H (98-107) mmol/L Carbon Dioxide 25 (22-32) mmol/L BUN 28 H (9-20) mg/dL Creatinine 0.93 (0.66-1.25) mg/dL Estimated GFR > 60 (>60) mL/min BUN/Creatinine Ratio 30.1 H (6-22) Glucose 67 L (80-110) mg/dL Calcium 8.6 (8.4-10.2) mg/dL Total Bilirubin 0.3 (0.2-1.3) mg/dL AST 73 H (17-59) IU/L ALT 87 H (<50) IU/L Alkaline Phosphatase 104 (38-126) U/L Total Protein 7.4 (6.3-8.2) g/dL Albumin 3.5 (3.5-5.0) g/dL Globulin 3.9 (1.7-4.1) g/dL Albumin/Globulin Ratio 0.9 L (1.0-2.8) Lipase 188 (23-300) U/L Urine RBC (0-5/HPF) Urine WBC (0-5/HPF) Ur Squamous Epith Cells (0-5/HPF) Urine Bacteria (None) Hyaline Casts (None) Urine Mucus (Negative) Ur Culture Indicated? U Opiates 300ng/mL cut (Negative) Ur Oxycodone Screen (Negative) Urine Methadone Screen (Negative) Ur Barbiturates Screen (Negative) U Tricyclic Antidepress (Negative) Ur Phencyclidine Scrn (Negative) Ur Amphetamines Screen (Negative) U Methamphetamines Scrn (Negative) Ur MDMA Scrn (Ecstasy) (Negative) U Benzodiazepines Scrn (Negative) Urine Cocaine Screen (Negative) U Marijuana (THC) Screen (Negative) Ethyl Alcohol < 10 ( - 10) mg/dL Urine Dip Bedside Urine Glucose Negative Bedside Urine Bilirubin - Negative Bedside Urine Ketone - Negative Urine Specific [place] 1.020 Bedside Urine Occult Blood ++ Bedside Urine pH 6.0 Bedside Urine Protein +/- 15 Bedside Urine Urobilinogen - Negative Bedside Urine Nitrite - Negative Bedside Urine Leukocytes +++ 500 Esterase Point of care testing: Urine Dip Bedside Urine Glucose Negative Bedside Urine Bilirubin - Negative Bedside Urine Ketone - Negative Urine Specific [place] 1.020 Bedside Urine Occult Blood ++ Bedside Urine pH 6.0 Bedside Urine Protein +/- 15 Bedside Urine Urobilinogen - Negative Bedside Urine Nitrite - Negative Bedside Urine Leukocytes +++ 500 Esterase MDM Narrative Medical decision making narrative: Review of the patient's medical record shows that approximately 2 months ago he was admitted to the hospital for what seems to be very similar symptoms to what he presents with today. According to the note that time he was admitted for urinary tract infection but upon further workup during that admission he had an MRI which showed an acute versus subacute stroke. The emergency department note mentioned that he was having swelling to his right hand so this finding today is not new. It also makes note that he does occasionally have weakness to his right lower extremity so I question whether or not the issues he is having with his right leg today are new as well. He is positive for methamphetamine in his urine and review his medical record shows that he is an active methamphetamine user. Does have a distant history of alcohol use. Patient is wearing a brief and does seem to be at least partially incontinent of urine. His urinalysis today does show bacteria and white blood cells although he does not endorse any specific dysuria. If there are any new neurologic symptoms today (which does not seem that there are given what he describes as his symptoms and the review of his medical record) they have least been going on for the past 2 days. Patient not a candidate for tPA. Do some suspicion that potentially his presenting symptoms are related to his methamphetamine abuse as when he was here in the hospital 2 months ago he was seen by Physical therapy and Occupational therapy and deemed okay to be discharged home. Did discuss the case with RAFAEL Larson the night hospitalist who stated that given his presentation this morning there was not a specific indication for admission to the hospital in the recommendation was to observe overnight to see whether or not he metabolizes any potential methamphetamine and potentially his symptoms improve and he is able to ambulate. A social work consult was placed. Physical therapy consult placed. Care turned over to day provider to observe until disposition. [0700] (Tee) Patient received in sign out from [Manuel]. I have reviewed the clinical course and performed an independent history and physical exam. Patient continues to clear and is now alert and oriented, he is spoken with family on the phone on multiple occasions. His labs are reassuring and there is no significant abnormality requiring immediate intervention. I ended up ordering imaging and there is no interval change, only expected sequela of previously noted stroke. He is able to eat and drink, he does not have any admission criteria. He does not wish to pursue intermediate. I discussed options with the hospitalist, Dr. Bui, who has reviewed the chart, please see her note for details. Patient lives in a motor home and is not a good candidate for home nursing. We have been in touch with the patient's son who will take him home, he will pick him up at 7:00 p.m. rai. Discharge Plan Departure Patient Disposition: Home Clinical Impression: Right leg weakness, Methamphetamine use Instructions: DI for Muscle Weakness, Methamphetamine Activity Restrictions/Additional Instructions: *You have been diagnosed with [methamphetamine use and right-sided weakness. As we discussed your labs are very reassuring and imaging does not demonstrate any new stroke.] *What to do: *Please continue to take your regular medications as directed. *Please follow up with your primary care provider in 2-3 days, call for an appointment. Let them know you were seen in the Emergency Department and that we ask that you be seen in follow up. We will electronically transmit a record of today's note if your PCP is in our system *If you do not have a primary care provider please contact the [facility] Resource line at [phone]. They will ask some questions about your medical history and help get you set up with a doctor in the community. *Return to Emergency Department if you should have any new, worsening or concerning symptoms, such as [fever greater than 101 F, shaking chills, worsening pain, persistent vomiting or other bothersome symptoms] Prescriptions: No Action clopidogrel 75 mg Tablet 75 mg PO DAILY Qty: 30 0RF aspirin 81 mg tablet,delayed release (DR/EC) 81 mg PO DAILY Qty: 30 0RF metoprolol succinate 50 mg tablet extended release 24 hr 50 mg PO DAILY Qty: 30 0RF atorvastatin 40 mg tablet 40 mg PO BEDTIME 90 Days Qty: 90 0RF Stand Alone Forms: Patient Portal/API
[2023-01-02 22:27] LABS: UR Morphine/Opiate cutoff 300 Negative (Negative); Ur Creatinine Normal (Normal); Ur Specific Gravity Normal (Normal); Urine Amphetamines Negative (Negative); Urine Cocaine Negative (Negative); Urine Tetrahydrocannabinol Negative (Negative); Urine pH Normal (Normal)
[2023-01-02 22:28] LABS: Urine Barbiturates Negative (Negative); Urine Benzodiazepines Negative (Negative); Urine MDMA Negative (Negative); Urine Methadone Negative (Negative); Urine Methamphetamines Positive (Negative); Urine Oxycodone Negative (Negative); Urine Phencyclidine Negative (Negative); Urine Tricyclic Antidepressant Negative (Negative)
[2023-01-02 23:10] LABS: Add Manual Diff / Slide Review NO; Basophils Absolute Auto 100 /uL (0-100); Eosinophils Absolute Auto 100 /uL (0-450); Eosinophils Percent Auto 1.9 % (2-4); Hematocrit 40.3 % (41-53); Hemoglobin 13.6 g/dL (13.5-17.5); Lymphocytes Absolute Auto 1600 /uL (1100-4500); Lymphocytes Percent Auto 23.1 % (25-40); Mean Corpuscular HGB Conc 33.9 % (30-36); Mean Corpuscular Hemoglobin 28.3 PG (26-34); Mean Corpuscular Volume 83.6 fL (80-100); Monocytes Absolute Auto 1000 /uL (0-900); Monocytes Percent Auto 14.5 % (3-14); Neutrophils Absolute Auto 4300 /uL (1500-7000); Neutrophils Percent Auto 59.5 % (50-75); Platelet Count 191 X10^3/uL (150-400); Red Blood Cell Count 4.82 X10^6/uL (4.5-5.9); Red Cell Distribution Width 14.1 % (11.6-14.8); White Blood Cell Count 7.1 X10^3/uL (4.5-11.0)
[2023-01-02 23:20] LABS: Alanine Aminotransferase 87 IU/L (<50); Albumin 3.5 g/dL (3.5-5.0); Albumin Globulin Ratio 0.9 (1.0-2.8); Alkaline Phosphatase 104 U/L (38-126); Aspartate Aminotransferase 73 IU/L (17-59); BUN Creatinine Ratio 30.1 (6-22); Bilirubin Total 0.3 mg/dL (0.2-1.3); Blood Urea Nitrogen 28 mg/dL (9-20); Calcium 8.6 mg/dL (8.4-10.2); Carbon Dioxide 25 mmol/L (22-32); Chloride 108 mmol/L (98-107); Estimated Glomerular Filt Rate > 60 mL/min (>60); Ethanol (ETOH) < 10 mg/dL; Globulin 3.9 g/dL (1.7-4.1); Glucose 67 mg/dL (80-110); HEMOLYSIS < 15 (0-50); Lipase 188 U/L (23-300); Potassium 4.4 mmol/L (3.4-5.1); Sodium 140 mmol/L (137-145); Total Protein 7.4 g/dL (6.3-8.2)
[2023-01-02 23:51] LABS: RBC Urine 0-1/HPF (0-5/HPF); WBC Urine 30-100/HPF (0-5/HPF)
[2023-01-02 23:52] LABS: Bacteria Urine Few (2-10); Culture Indicated Urine Specimen Cultured; Hyaline Casts Urine 1-5/LPF; Mucus Urine 1+ (Negative); Squamous Epithelial Cell Urine 0-1 /HPF (0-5/HPF)
[2023-01-03] VITALS (39 sets, daily range): BP systolic 154–205; BP diastolic 74–107; PULSE 52–70; RESP 18–20; O2SAT 94–100
[2023-01-03] MEDS: METOPROLOL ER 50 MG TABLET PO (00:44)
[2023-01-03] MEDS: cephALEXin 250 MG CAPSULE 500 MG PO (07:24)
--- NOTE | 2023-01-03 10:43 | DI.CT.S_ITS ---
PROCEDURE: CT ANGIO HEAD AND NECK INDICATIONS: stroke symptoms TECHNIQUE: Pre-contrast 4.5 mm thick sections acquired from the foramen magnum to the vertex. After the administration of intravenous contrast, 1 mm thick sections acquired from the aortic arch through the [place]. Post-contrast 4.5 mm thick sections then re-acquired from the foramen magnum to the vertex. 3-dimensional hovzwwy-ymwphgxsn-vqwarjxauu (MIP) and/or volume rendering reformats were acquired of the central intracranial vasculature and neck separately. For radiation dose reduction, the following was used: automated exposure control, adjustment of mA and/or kV according to patient size. COMPARISON: [facility], CT, CT ANGIO HEAD AND NECK, 12/06/2022, 0:46. FINDINGS: Image quality: Excellent. BRAIN: CSF spaces: Ventricles are normal in size and shape. Basal cisterns are patent. No extra-axial fluid collections. Brain: Further progression of cytotoxic edema involving a moderate-sized portion of the left frontal lobe with trace adjacent cortical hyper perfusion. Further progression encephalomalacia involving the right posterior parietal region. No acute hemorrhage. No mass or mass effect. There is underlying mild microvascular ischemic change. Skull and face: Calvarium and facial bones appear intact, without suspicious lesions. Orbits appear normal. Sinuses: Small mucous retention cysts in the left maxillary sinus. Surgical change or debris along the left eyelid. HEAD CT ANGIOGRAPHY: Anterior circulation: Chronic occlusion of the left internal carotid artery with reconstitution just prior to the terminus. There is collateral flow opacify left A1 and M1 segments. Intracranial internal carotid arteries are normal in size and flow. The flow within the paired anterior cerebral arteries is normal and symmetric. There is hypoperfusion involving the left frontal region with gradual diffuse narrowing of a left M3 branch. The anterior communicating artery is seen. No aneurysms are seen. Posterior circulation: Visualized portions of the vertebral arteries demonstrate normal caliber, and join to form a normal appearing basilar artery. Flow within the posterior cerebral arteries is normal and symmetric. No aneurysms are seen. NECK CT ANGIOGRAPHY: Carotid system: The great vessels demonstrate a conventional anatomy as they arise from the aortic arch. The origins of the common carotid arteries appear patent. The common carotid arteries demonstrate normal caliber and courses. The bifurcation regions are both widely patent. There is occlusion of the left internal carotid artery at the carotid bulb. There is less than 50% stenosis secondary to calcified and noncalcified plaque at the right internal carotid artery origin. Posterior circulation: The origins of the vertebral arteries both appear widely patent. The more superior extracranial portions of both vertebral arteries also demonstrate normal courses and calibers. They join to form a normal appearing basilar artery. Soft tissues: Visualized neck soft tissues demonstrate no suspicious abnormalities. Bones: No suspicious bony lesions. There are severe degenerative disc and endplate changes in the lower cervical spine causing mild cervical kyphosis. There is facet arthropathy. IMPRESSION: 1. Evolution moderate left frontal lobe infarct, probably a watershed infarct. 2. There is overall decreased vascularity in the left frontal region corresponding to this area of infarct. This may be secondary to vascular spasm as a discrete occlusion is not identified. 3. Chronic left ICA occlusion. 4. Progression small infarct in the right posterior parietal region. Any quantitative measurements of stenosis were performed using NASCET criteria. Dictated by: Mary Ellen Zepeda M.D. on 01/03/2023 at 10:50 Approved by: Mary Ellen Zepeda M.D. on 01/03/2023 at 11:09
[2023-01-03] MEDS: CLOPIDOGREL 75 MG TABLET PO (10:52)
[2023-01-03] MEDS: ATORVASTATIN 20 MG TABLET 40 MG PO (10:52)
--- NOTE | 2023-01-03 11:20 | PT.IIE ---
Surgical History (Last Reviewed 12/06/22 @ 06:30 by Scot Magallanes MD) History of mandibular surgery History of tonsillectomy and adenoidectomy Medical History (Last Reviewed 01/03/23 @ 05:47 by Vaibhav Jackson DO) Alcohol abuse Bipolar 1 disorder Borderline hyperlipidemia Depression Hypertension, essential Tobacco abuse Physical Therapy Inpatient Evaluation/Re-Eval M1 PT/OT-IP Prior Functional Status Start: 01/03/23 12:04 Freq: Status: Active Protocol: Document 01/03/23 11:20 AB (Rec: [facility]03[facility]23 12:30 [facility] Medical Review Prior Functional Status Medical History Reviewed Yes Communication has unclear speech and has memory issues Mobility and Gait pt stated that he is able to ambulate in his RV without AD and was using a manual w/c for outdoor mobility. stated that he was using a SPC for outdoor mobility up until a month ago where he started using his w/c more for convenience. Social History Household Members none Living Arrangements RV Number of Floors (Floors) One Floor Number of Stairs To Enter/Railing? 5 steps R rail ascending to enter Home Equipment Front Wheel Walker,Straight Cane,Manual Wheelchair Additional Social History Comment pt stated that his step son helps him with his groceries pt stated that his shower and toilet are not hooked up and there is no water and has not been able to use these; pt unable to answer what he uses for shower or toileting needs M2 PT-IP Current Condition Start: 01/03/23 12:04 Freq: Status: Active Protocol: Document 01/03/23 11:20 AB (Rec: 01/03/23 12:30 [facility] Physical Therapy Current Condition Current Condition Evaluation Date 01/03/23 Treatment Diagnosis CVA; difficulty in walking Onset Date 01/02/23 M3 PT-IP Subjective Start: 01/03/23 12:04 Freq: Status: Active Protocol: Document 01/03/23 11:20 AB (Rec: 01/03/23 12:30 AB [id number]) Subjective Physical Therapy Visit Type Type Initial Evaluation Visit Start Time 11:20 Visit Stop Time 11:54 Total Visit Minutes 34 Number of DENTAL HYGIENE ADMINISTRATIVE ASSISTANT Visits 0 Physical Therapy Visit Comments Patient Comments agreed to do PT M4 PT-IP Mobility and Gait Start: 01/03/23 12:04 Freq: Status: Active Protocol: Document 01/03/23 11:20 AB (Rec: 01/03/23 12:30 AB [email or web address]) PT-Bed Mobility Assessment Supine to Sit Supine to Sit Standby Assistance,Head of Bed Elevated Sit to Supine Sit to Supine Moderate Assistance,1 Person Assistance,Head of Bed Elevated PT-Transfer Assessment Sit to and From Stand Sit to and from Stand Moderate Assistance,Maximum Assistance,1 Person Assistance ,Use of Upper Extremities Equipment Transfer Assistive Device Gait Belt,Front Wheeled Walker Orthotic/Prosthetic Devices or Brace: No Comments Mobility Comments BP: 178/90. completed supine to sit with HOB elevated to ~ 30 deg SBA. able to sit on EOB CGA. completed sit to stand mod to max A and max cues. increase posterior leaning requiring max A for standing balance using FWW. ambulated in room ~ 6 ft using FWW max A and max cues with posterior LOB requiring max A for stability. pt presents with NBOS with RLE crossing midline and with ankle inversion and PF. also noted increase extensor hypertonus on RLE with slight circumduction gait pattern during ambulation. pt went back to bed. required mod A to elevate RLE up to bed . positioned pt in bed. call light and table placed within reach. Gait Assessment Gait Gait Assistance Required: Maximum Assistance,1 Person Assist Distance (Feet) 6 Able to Maintain Weight Bearing Status Yes During Gait Assistive Devices Assistive Device Gait Belt,Front Wheeled Walker Orthotic/Prosthetic Devices or Brace: No Gait Deviations General Gait Pattern Ataxic,Decreased Stride Length ,Decreased Feet Clearance, Narrow Based Gait,Step-to Gait Factors Limiting Gait Function Factors Limiting Gait Function Abnormal Tonal Influences, Decreased Activity Tolerance, Decreased Strength,Difficulty Following Directions, Incoordination,Limited Range of Motion,Pain,Poor Balance, Poor Safety Awareness PT-Balance Assessment Sitting Balance and Reactions Static Sitting Balance Ability Good Dynamic Sitting Balance Ability Good Standing Balance and Reactions Static Standing Balance Ability Poor Dynamic Standing Balance Ability Poor Device Used FWW M5 PT-IP Objective Assessments Start: 01/03/23 12:04 Freq: Status: Active Protocol: Document 01/03/23 11:20 AB (Rec: 01/03/23 12:30 AB [id number]) Orientation Orientation/Cognition Level of Alertness Confusional State Orientation Name Language Function Ability Garbled Speech Safety Awareness Decreased Safety Awareness Memory Description Short Term Impaired,Shelter Impaired Gross Range of Motion Lower Extremity ROM Assessment Right Impaired Impairments R ankle tightness in PF and inversion with limited DF Strength Lower Extremity Strength Assessment Right Impaired Hip 3-/5 Knee 3+/5 Ankle 2-/5 Muscle Tone Muscle Tone Location Right Lower Extremity Type of Tone Hypertonicity,Extensor Severity of Tone Moderate M6 PT-IP Treatment Start: 01/03/23 12:04 Freq: Status: Active Protocol: Document 01/03/23 11:20 AB (Rec: 01/03/23 12:30 AB [email or web address]) Physical Therapy Treatment Education Education Provided Safety M7 PT-IP Assessment and Plan Start: 01/03/23 12:04 Freq: Status: Active Protocol: Document 01/03/23 11:20 AB (Rec: 01/03/23 12:30 AB [email or web address]) PT Summary Assessment and Plan Potential Rehabilitation Potential Fair Status of Condition at Evaluation Evolving Summary Impairments Pain,ROM,Strength,Balance, Coordination,Sensation,Tone, Cognition,Bed Mobility, Transfers,Gait,Activity Tolerance Assessment Summary PT eval received from ED. pt with h/o CVA but also use of meth and in the ER for observation. pt requiring max A with mobility using FWW and only able to ambulate ~ 6 ft using FWW max A and max cues. presents with increase extensor tone on RLE with ankle PF and inversion with circumduction gait. pt was just admitted to the hospital last 12/06/22 and was on PT at that time and was only needing SBA with ambulation using FWW upon d/c. pt currently lives alone and stated that his ex- has moved to [place]. pt will need 02/03 assist availability and will need SNF rehab at this time to improve mobility. Goals Bed Mobility Goal Independent Transfer Goal Minimal Assistance,Front Wheeled Walker Gait Goal Minimal Assistance,Front Wheel Walker Gait Distance 100 Other Goals improve transfers and ambulation using FWW 250 ft SBA up/down 5 steps R rail SBA Days to Meet Goals 10 Frequency of Treatment Frequency Of Treatment Once a Day Treatment Plan Physical Therapy Treatment Plan Bed Mobility Training,Transfer Training,Gait Training, Therapeutic Exercise,Balance Retraining,Discharge Planning, Hot or Cold Pack,Neuromuscular Re-ed,Coordination Retraining ,Manual Therapy Recommendations To Nursing Amount of Assist Needed 1 Person Assist Discharge Recommendations PT Discharge Recommendations SNF Rehab Transportation Needs at Discharge Wheelchair/Cabulance
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
== END 2023-01-03 19:20 | disposition home or self-care (01) ==
PROVIDERS: Emergency Medicine; Emergency Provider Emergency Medicine
DX: R53.1 Weakness (principal); F15.90 Other stimulant use, unspecified, uncomplicated
CPT/HCPCS: 70496; 70498; 80053; 80305; 80320; 81003; 81015; 83690; 85025; 87086; 97162; 99283; 99284; Q9967